=== PATIENT | female | born 1975 | race Caucasian/White ===

== ENCOUNTER 2024-08-27 01:56 | Emergency (ER) | payer OTHER, SELFPAY ==
[2024-08-27 02:01] VITALS: BP 172/98; PULSE 78; TEMP 36.6; O2SAT 97; BMI 53.7
--- NOTE | 2024-08-27 02:20 | CT_ITS ---
[address] [address] Patient Name: KRISTINA HENNESSY MRN: [id number] date: 1975 Sex: F Assigned Patient Location: ER Current Patient Location: ER Accession/Order Number: [id number] Exam Date: 08/27/2024 02:42 Report Date: 08/27/2024 03:12 At the request of: TRINI BAKER Procedure: CT abdomen pelvis w con EXAM: CT abdomen pelvis w con HISTORY: right sided abdominal pain COMPARISON: None. TECHNIQUE: Axial CT images through the abdomen and pelvis were obtained after the intravenous administration of contrast. Coronal and sagittal reformats were obtained. Dose reduction techniques were achieved by using automated exposure control and/or adjustment of mA and/or kV according to patient size and/or use of iterative reconstruction technique. FINDINGS: There is mild bibasilar atelectasis. There is a small hiatal hernia. Abdomen: The liver and spleen enhance homogeneously without focal lesion. There is no intra or extrahepatic biliary duct dilatation. The gallbladder is surgically absent. The liver is enlarged measuring up to 18.2 cm at the right midclavicular line. There is an indeterminate right adrenal nodule measuring up to 2.2 x 1.5 cm (series 3, image 44). The pancreas and kidneys are unremarkable. There is no mesenteric or retroperitoneal lymphadenopathy. There is colonic diverticulosis without evidence of diverticulitis. The appendix is dilated measuring up to 1.1 cm. An appendicolith is noted. There are surrounding inflammatory changes. Pelvis: The bladder and rectum are unremarkable. There is no iliac or inguinal lymphadenopathy. The uterus is present. The ovaries appear within normal limits by CT. Bone windows show no aggressive osseous lesions. CT/CT abdomen pelvis w con IMPRESSION: 1. Acute appendicitis. 2. Status post cholecystectomy. 3. Hepatomegaly. 4. Indeterminate right adrenal nodule. This could be further evaluated with a nonemergent outpatient contrast-enhanced MRI examination as clinically indicated. 5. Colonic diverticulosis without evidence of diverticulitis. #[address] Baker by Dr. Shannon at 3:11 AM ET on 08/27/2024. Electronically authenticated by: Kurt SHANNON Date: 08/27/2024 03:12
[2024-08-27 02:26] LABS: Basophils Percent Auto 0.2 % (0.2-2.0); Hematocrit 38.3 % (36.0-48.0); Immature Granulocytes Abs Auto 0.04 10^3/uL (0.00-0.03); Immature Granulocytes Pct Auto 0.3 % (0.0-0.5); Lymphocytes Percent Auto 8.3 % (20.5-60.0); Mean Corpuscular HGB Conc 33.9 g/dL (29.9-35.2); Mean Corpuscular Hemoglobin 29.5 pg (26.7-34.0); Mean Platelet Volume 8.8 fL (9.5-13.5); Monocytes Absolute Auto 0.4 10^3/uL (0.3-0.8); Monocytes Percent Auto 2.8 % (1.7-12.0); Neutrophils Percent Auto 88.4 % (43.0-75.0); Platelet Count 202 10^3/uL (150-450); Red Cell Distribution Width 13.2 % (11.0-15.0); White Blood Count 12.5 10^3/uL (4.0-11.0)
[2024-08-27 02:50] LABS: Alanine Aminotransferase 17 U/L (14-59); Albumin Globulin Ratio 0.9; Albumin Level 3.2 g/dL (3.4-5.0); Alkaline Phosphatase 90 U/L (46-116); Anion Gap 12.2; Aspartate Amino Transferase 8 U/L (15-37); BUN Creatinine Ratio 12.6; Bilirubin Total 1.5 mg/dL (0.2-1.0); Calcium 9.6 mg/dL (8.5-10.1); Carbon Dioxide 28.6 mmol/L (21.0-32.0); Chloride 100 mmol/L (98-107); Estimated GFR (African America >60 (>=60 mL/min/1.73m^2); Estimated GFR (Non-African Ame >60 (>=60 mL/min/1.73m^2); Globulin 3.5 g/dL; Glucose 175 mg/dL (74-106); Potassium 3.8 mmol/L (3.5-5.1); Sodium 137 mmol/L (136-145); Total Protein 6.7 g/dL (6.4-8.2); Troponin I High Sensitivity 6.5 pg/mL (4.0-51.3)
[2024-08-27 02:53] LABS: Lactate/Lactic Acid 2.2 mmol/L (0.4-2.0)
[2024-08-27] MEDS: MORPHINE SULFATE 2 MG/ML SYRINGE 4 MG IV (03:01)
[2024-08-27] MEDS: ONDANSETRON PF 4 MG/2 ML VIAL IV ×2 (03:01→05:06)
[2024-08-27 03:30] LABS: HCG Qualitative NEGATIVE (NEGATIVE); Internal Control Within Normal Limits
--- NOTE | 2024-08-27 03:39 | ED.ABDPAIN1 ---
HPI - Abdominal Pain General Chief Complaint: Abdominal Pain Stated Complaint: FLANK PAIN, RIGHT Time Seen by Provider: 08/27/24 02:16 Source: patient Mode of arrival: walk-in Limitations: no limitations History of Present Illness HPI narrative: 49-year-old female to the emergency department with chief complaint of right lower quadrant pain. She reports pain onset earlier in the day. Steadily progressively worsening. She has nausea and vomiting. No fever, sweats, chills. Past medical history: Hypertension, hypothyroidism Past surgical history: Cholecystectomy Related Data Home Medications ?Medication ?Instructions ?Recorded ?Confirmed citalopram 10 mg tablet 10 mg PO DAILY 08/27/24 08/27/24 hydrochlorothiazide 12.5 mg tablet 12.5 mg PO Q12H 08/27/24 08/27/24 labetalol 300 mg tablet 150 mg PO Q12H 08/27/24 08/27/24 levothyroxine 50 mcg tablet 50 mcg PO DAILY 08/27/24 08/27/24 (Synthroid) losartan 50 mg tablet 50 mg PO BID 08/27/24 08/27/24 Allergies Allergy/AdvReac Type Severity Reaction Status Date / Time No Known Drug Allergies Allergy Verified 08/27/24 02:05 Review of Systems ROS Status of ROS 10 or more systems reviewed and unremarkable except as noted in history and below [facility] Medical History (Updated 08/27/24 @ 03:47 by Quinton Baker MD) Thyroid disease ?E07.9 - Disorder of thyroid, unspecified (ICD-10) Hypertension ?I10 - Essential (primary) hypertension (ICD-10) Social History Little interest or pleasure in doing things: not at all Feeling down, depressed, or hopeless: not at all Exam Narrative Exam Narrative: VITALS: I have reviewed the triage vital signs. GENERAL: Morbidly obese female in no distress NEURO: Alert and oriented. Moves all extremities. Face is symmetric and expressive. EYES: PERRL. No scleral icterus or conjunctival injection. No discharge. HENT: Normocephalic, atraumatic. Hearing is grossly intact. Nares grossly patent and without discharge. Mucous membranes moist. NECK: No JVD. Patient moves neck without restriction. CARDIO: Rhythm regular. Normal rate. No murmur, rub, or gallop. Pulses equal bilaterally in the upper and lower extremity. No lower extremity edema. PULM: Lungs clear to auscultation in all nieves. No wheezes, rales, or rhonchi. No conversational dyspnea. No splinting, stridor, or accessory muscle use. GI/: Abdomen is soft. Right lower quadrant tenderness. Normoactive bowel sounds. EXTREMITIES: Symmetric muscle bulk. No joint swelling. No clubbing, cyanosis, or deformity. SKIN: Warm and dry. Normal turgor. No rash or lesions appreciated. PSYCH: Mood, affect, and interaction is appropriate to the setting. Constitutional Vital Signs, click to edit/add: Last Vital Signs Temp 97.9 F 08/27/24 02:01 Pulse 78 08/27/24 02:01 Resp 16 08/27/24 02:01 BP 172/98 H 08/27/24 02:01 Pulse Ox 97 08/27/24 02:01 O2 Del Method Room Air 08/27/24 02:01 Course Vital Signs Vital signs: Vital Signs Temperature 97.9 F 08/27/24 02:01 Pulse Rate 78 08/27/24 02:01 Respiratory Rate 16 08/27/24 02:01 Blood Pressure 172/98 H 08/27/24 02:01 Pulse Oximetry 97 08/27/24 02:01 Oxygen Delivery Method Room Air 08/27/24 02:01 Temperature 97.9 F 08/27/24 02:01 Pulse Rate 78 08/27/24 02:01 Respiratory Rate 16 08/27/24 02:01 Blood Pressure 172/98 H 08/27/24 02:01 Pulse Oximetry 97 08/27/24 02:01 Oxygen Delivery Method Room Air 08/27/24 02:01 MDM - Abdominal Pain MDM Narrative Medical decision making narrative: Female to the emergency department with chief complaint of right lower quadrant pain. Vital stable, the patient is afebrile. She does have significant tenderness on exam of the right lower CT scan is ordered. Basic labs. Morphine and Zofran for discomfort. Lab work reviewed and noted. Mild leukocytosis. Mild lactic acidosis likely setting of pain response. CT scan is consistent with acute appendicitis. No complication. Rocephin and Flagyl. Case discussed with Dr. Harvey at [facility] which is the patient's preferred transfer destination. He accepts the patient to his service. Medical Records Attestation: I reviewed the patient's medical records. Lab Data Attestation: I reviewed the patient's lab results. Labs: Lab Results 08/27/24 Range/Units 02:18 WBC 12.5 H (4.0-11.0) 10^3/uL RBC 4.40 (4.20-5.40) 10^6/uL Hgb 13.0 (12.0-16.0) g/dL Hct 38.3 (36.0-48.0) % MCV 87.0 (81.0-99.0) fL MCH 29.5 (26.7-34.0) pg MCHC 33.9 (29.9-35.2) g/dL RDW 13.2 (11.0-15.0) % Plt Count 202 (150-450) 10^3/uL MPV 8.8 L (9.5-13.5) fL Neut % (Auto) 88.4 H (43.0-75.0) % Lymph % (Auto) 8.3 L (20.5-60.0) % [place] % (Auto) 2.8 (1.7-12.0) % Eos % (Auto) 0.0 L (0.9-7.0) % Baso % (Auto) 0.2 (0.2-2.0) % Neut # (Auto) 11.0 H (1.4-6.5) 10^3/uL Lymph # (Auto) 1.0 L (1.2-3.8) 10^3/uL [place] # (Auto) 0.4 (0.3-0.8) 10^3/uL Eos # (Auto) 0.0 (0.0-0.7) 10^3/uL Baso # (Auto) 0.0 (0.0-0.1) 10^3/uL Abs Immat Gran (auto) 0.04 H (0.00-0.03) 10^3/uL Imm/Tot Granulo (auto) 0.3 (0.0-0.5) % Sodium 137 (136-145) mmol/L Potassium 3.8 (3.5-5.1) mmol/L Chloride 100 (98-107) mmol/L Carbon Dioxide 28.6 (21.0-32.0) mmol/L Anion Gap 12.2 BUN 12.0 (7.0-18.0) mg/dL Creatinine 0.95 (0.55-1.02) mg/dL Est GFR ( Amer) >60 (>=60 mL/min/1.73m^2) Est GFR (Non-Af Amer) >60 (>=60 mL/min/1.73m^2) BUN/Creatinine Ratio 12.6 Glucose 175 H (74-106) mg/dL Lactate 2.2 H* (0.4-2.0) mmol/L Calcium 9.6 (8.5-10.1) mg/dL Total Bilirubin 1.5 H (0.2-1.0) mg/dL AST 8 L (15-37) U/L ALT 17 (14-59) U/L Alkaline Phosphatase 90 (46-116) U/L Troponin I High Sens 6.5 (4.0-51.3) pg/mL Total Protein 6.7 (6.4-8.2) g/dL Albumin 3.2 L (3.4-5.0) g/dL Globulin 3.5 g/dL Albumin/Globulin Ratio 0.9 Lipase 31.0 (16.0-77.0) U/L Serum HCG, Qual Negative (NEGATIVE) Imaging Data CT scan - abdomen: Radiologist's impression: ITS Impressions Abdomen/Pelvis CT 08/27/24 02:20 IMPRESSION: 1. Acute appendicitis. 2. Status post cholecystectomy. 3. Hepatomegaly. 4. Indeterminate right adrenal nodule. This could be further evaluated with a nonemergent outpatient contrast-enhanced MRI examination as clinically indicated. 5. Colonic diverticulosis without evidence of diverticulitis. #[address] Baker by Dr. Shannon at 3:11 AM ET on 08/27/2024. Electronically authenticated by: Kurt SHANNON Date: 08/27/2024 03:12 Discharge Plan Discharge Chief Complaint: Abdominal Pain Clinical Impression: Acute appendicitis Patient Disposition: [facility] Time of Disposition Decision: 03:46 Discharge Location: [facility] Mode of Transportation: EMS Prescriptions / Home Meds: No Action citalopram 10 mg tablet 10 mg PO DAILY hydrochlorothiazide 12.5 mg tablet 12.5 mg PO Q12H labetalol 300 mg tablet 150 mg PO Q12H levothyroxine [Synthroid] 50 mcg tablet 50 mcg PO DAILY losartan 50 mg tablet 50 mg PO BID Print Language: Guamanian Referrals: HALEY VALDIVIA [Primary Care Provider] - 1 week
[2024-08-27 03:40] VITALS: BP 162/88; PULSE 71; TEMP 36.9; O2SAT 99
[2024-08-27] MEDS: CEFTRIAXONE 1,000 MG in 0.9 % SODIUM CHLORIDE 50 ML 100 MG IV (04:05)
[2024-08-27] MEDS: METRONIDAZOLE/SODIUM CHLORIDE 500 MG/100 ML PREMIX 100 MG IV (04:38)
[2024-08-27 05:08] LABS: Bilirubin Urine NEGATIVE (NEGATIVE); Blood Urine TRACE-I (NEGATIVE); Clarity Urine CLEAR (CLEAR); Color Urine YELLOW (YELLOW); Glucose Urine UA NEGATIVE (NEGATIVE); Ketones Urine NEGATIVE (NEGATIVE); Leukocyte Esterase Urine NEGATIVE (NEGATIVE); Nitrite Urine NEGATIVE (NEGATIVE); Protein Urine NEGATIVE (NEG/TRACE); Urobilinogen Urine 0.2 EU/dL (0.2-1.0)
[2024-08-27 05:12] VITALS: BP 146/80; PULSE 70; O2SAT 98
[2024-08-27 05:15] LABS: Bacteria Urine NONE SEEN #/HPF (NONE SEEN); Crystals Seen? None Seen #/HPF (None Seen); Mucus Urine NONE SEEN (NONE SEEN); RBC Urine 0-2 #/HPF (0-2); Squamous Epithelial Cell Urine FEW #/LPF (NONE/RARE); WBC Urine 0-2 #/HPF (NONE SEEN)
[2024-08-27 05:16] LABS: Cast Seen? NONE SEEN #/LPF (NONE SEEN)
--- NOTE | 2024-08-27 05:20 | PC.NURSE ---
Report called to [place] [phone]. To room 4037
== END 2024-08-27 06:10 | disposition short-term general hospital (02) ==
PROVIDERS: Emergency Provider Student in an Organized Health Care Education/Training Program; PCP Family Medicine
DX: K35.80 Unspecified acute appendicitis (principal); I10 Essential (primary) hypertension; E03.9 Hypothyroidism, unspecified; Z90.49 Acquired absence of other specified parts of digestive tract; E66.01 Morbid (severe) obesity due to excess calories; Z68.43 Body mass index [BMI] 50.0-59.9, adult; K57.30 Diverticulosis of large intestine without perforation or abscess without bleeding; R16.0 Hepatomegaly, not elsewhere classified
CPT/HCPCS: 36415; 74177; 80053; 81001; 83605; 83690; 84484; 84703; 85025; 96365; 96367; 96375; 96376; 99285; J0696; J1836; J2270; J2405; Q9967

== ENCOUNTER 2025-04-22 17:52 | Emergency (ER) | payer OTHER, SELFPAY ==
--- OUTSIDE RECORDS SUMMARY | 2025-04-22 18:01 | XMS_ITS | Clinical Summary ---
Author Organization [facility] Address [address] [place] [address] Care Team Providers Care Disease Case Manager Name Role Phone Javy Antoine MD Primary Care Provider [phone] Allergies No known active allergies Medications losartan (Cozaar) 50 MG tablet Twice daily 4 Active labetalol (Normodyne) 300 MG tablet .COMPLEX 4 Active levothyroxine (Synthroid, Levoxyl) 50 MCG tablet Daily before breakfast 4 Active hydroCHLOROthia zide (HYDRODiuril) 12.5 MG tablet Twice daily 4 Active citalopram (CeleXA) 10 MG tablet Daily 4 Active Active Problems Problem Noted Date Diagnosed Date Acute appendicitis with loca lized peritonitis, without perforation, abscess, or gangrene 09/10/2024 Family History Relation Name Status Comments Brother Alive Father Alive Mother Sister Alive Social History Tobacco Use Types Packs/Day Years Used Date Smoking Tobacco: Never Smokeless Tobacco: Never Tobacco Cessation:Counseling Given: Not Answered Alcohol Use Standard Drinks/Week Comments Yes 0 (1 standard drink = 0.6 oz pur e alcohol) Comments Unknown Sex and Gender Information Value Date Recorded Sex Assigned at Not on file Legal Sex Female 7:23 PM EDT Gender Identity Not on file Sexual Orientation Not on file Last Filed Vital Signs Vital Sign Reading Time Taken Comments Blood Pressure 118/74 09/10/2024 9:13 AM EST Pulse - - Temperature - - Respiratory Rate - - Oxygen Saturation - - Inhaled Oxygen Concentration - - Weight 140 kg (309 lb) 09/10/2024 9:13 AM EST Height 162.6 cm (5' 4 ) 09/10/2024 9:13 AM EST Body Mass Index 53.04 09/10/2024 9:13 AM EST Plan of Treatment Health Maintenance Due Date Last Done Comments CT Colonography 1974 Colonoscopy 1975 Colorectal Cancer Screening 1974 FIT-DNA 1974 FIT 1974 FOBT 1975 Sigmoidoscopy 1974 Pap Smear 1995 Cervical Cancer Screening 2004 HPV/Cotest 2004 Mammogram 2014 Influenza Vaccine (#1) 2025 Insurance [employer] Care Teams Disease Case Manager Relationship Specialty Start Date End Date Javy Antoine MD [address] [place] [id number] PCP - General Family Medicine 09/01/24
--- OUTSIDE RECORDS SUMMARY | 2025-04-22 18:04 | XMS_ITS | CCD ---
Author Organization [facility] Care Team Providers Care Founder / Ceo Name Role Phone SKIP, DR DE LEON Primary Care Unavailable NICOLAS, DR INFANTE Admitting Unavailable NICOLAS, DR INFANTE Attending Unavailable WEST, DR HALEY Morgan Consulting Unavailable NICOLAS, DR INFANTE Consulting Unavailable GIRVIN, DR DE LEON Primary Care Unavailable NICOLAS, DR INFANTE Admitting Unavailable NICOLAS, DR INFANTE Attending Unavailable NICOLAS, DR INFANTE Consulting Unavailable GIRVIN, DR DE LEON Primary Care Unavailable GIRVIN, DR DE LEON Admitting Unavailable GIRVIN, DR DE LEON Attending Unavailable NADERER, DR ZIYAD Meredith Admitting Unavailable REINECK, DR SAMIM Dougherty Consulting Unavailabl e GIRVIN, DR DE LEON Primary Care Unavailable NADERER, DR ZYIAD Meredith Attending Unavailable NADERER, DR ZIYAD Meredith Consulting Unavailable [place]hambra, Salomón Consulting Unavailable GIRVIN, DR DE LEON Primary Care Unavailable GIRVIN, DR DE LEON Admitting Unavailable GIRVIN, DR DE LEON Attending Unavailable GIRVIN, DR DE LEON Consulting Unavailable Policaro, Ira Consulting Unavailable GIRVIN, DR DE LEON Primary Care Unavailable GIRVIN, DR DE LEON Admitting Unavailable GIRVIN, DR DE LEON Attending Unavailable GIRVIN, DR DE LEON Consulting Unavailable GIRVIN, DR DE LEON Primary Care Unavailable WEST, DR HALEY Morgan Consulting Unavailable CHERELLE MCDONALD Admitting Unavailable TAMARA, CHERELLE Attending Unavailable CHERELLE MCDONALD Consulting Unavailable Haley Valdivia Unavailable Deanna Mckee Unavailable Meme Fernandez Unavailable RUSS MCNAMARA Attending Unavailable RUSS MCNAMARA Referring Unavailable HALEY VALDIVIA Primary Care Unavailable RUSS MCNAMARA Referring Unavailable HALEY VALDIVIA Primary Care Unavailable RUSS MCNAMARA Attending Unavailable RUSS MCNAMARA Attending Unavailable HALEY VALDIVIA Primary Care Unavailable RUSS MCNAMARA Attending Unavailable HALEY VALDIVIA Referring Unavailable HALEY VALDIVIA Primary Care Unavailable Haley Valdivia DO Primary Care Provider [phone] Justin Horton MD Admit Provider Marin Barron MD Attending Provider Radha Padilla MD Other Provider Haley Valdivia MD Primary Care Provider RADHA HECK Attending Unavailable Marin Barron Attending Unavailab Justin Sosa Admitting Unavailable Haley Valdivia Primary Care Unavailable Radha Padilla Consulting Unavailable Haley Valdivia DO Primary Care Provider Justin Horton MD Admit Provider Marin Barron MD Attending Provider [phone] Radha Padilla MD Other Provider Medications Current Medications Medication Drug Class(es) Dates Sig (Normalized) Sig (Original) Berberine (3 sources) Start: 01-28-2024 berberine Acti ve PO January 27, 2024 11:00pm Start: 01-28-2024 berberine Acti ve PO January 28, 2024 12:00am Biotin (17 sources) Start: 01-28-2024 Biotin Active PO January 27, 2024 11:00pm Start: 01-28-2024 Biotin Active PO January 28, 2024 12:00am Biotin Not-Takin g Biotin Active 24 hr buPROPion hydrochloride 300 mg extended release oral tablet (13 sources) Aminoketone Start: 05-02-2021 take 1 tablet by mouth once daily in the morning Wellbutrin XL 150 MG 1 tablet Orally qd am Apr, Active Start: 05-02-2021 take 1 tablet by luis th once daily in the morning Wellbutrin XL 300 MG 1 tablet Orally qd am for 30 day(s) Apr, Active Wellbutrin Activ e cholecalciferol 0.05 mg oral tablet (17 sources) Vitamin D Start: 01-28-2024 End: 01-28-2024 take 1 tablet by mouth once daily Cholecalciferol (Vitamin D3) 50 mcg (2,000 unit) tablet Active 50 MCG PO Daily January 28, 2024 10:13am Start: 01-28-2024 End: 01-28-2024 take 1 tablet by mouth once daily Cholecalciferol (Vitamin D3) 50 mcg (2,000 unit) tablet Discontinued 1 TAB PO Daily January 28, 2024 12:00am January 28, 2024 10:14am FreeTextSi tablet Orally Once a day; Note: Source Status: Taking; Provider: Skip Mills Start: 06-11-2022 take 1 tablet by luis th every twenty-four hours Vitamin D 50 MCG (2000 UT) 1 tablet Orally Once a day Jun, Active Citalopram (20 sources) Serotonin Reuptake Inhibitor Start: 10-26-2024 Citalopram 10 mg tab let Active 0 .ROUTE .COMPLEX October 26, 2024 8:10am TAKE 1 TABLET DAILY IN THE EVENING Start: 01-28-2024 End: 03-03-2024 take 2 tablets by mouth once daily Citalopram 10 mg tablet Discontinued 20 MG PO Daily January 28, 2024 10:02am March 03, 2024 11:29am Start: 01-28-2024 take 20 mg by mouth once daily Citalopram Active 20 MG PO Daily January 28, 2024 10:02am Start: 11-03-2023 End: 01-28-2024 Citalopram 10 mg tablet Disc ontinued 0 .ROUTE .COMPLEX November 03, 2023 9:50am January 28, 2024 10:06am TAKE 1 TABLET DAILY IN THE EVENING Start: 11-03-2023 End: 01-28-2024 Citalopram 10 mg tablet Disc ontinued 0 .ROUTE .COMPLEX November 03, 2023 8:50am January 28, 2024 9:06am TAKE 1 TABLET DAILY IN THE EVENING Start: 11-03-2023 End: 01-28-2024 Citalopram Discontinued 0 .R OUTE .COMPLEX November 03, 2023 9:50am January 28, 2024 10:06am TAKE 1 TABLET DAILY IN THE EVENING Start: 11-03-2023 End: 10-26-2024 take 1 tablet by mouth once daily Citalopram 10 mg tablet Discontinued 10 MG PO Daily July 05, 2024 10:38am October 26, 2024 8:10am Citalopram [place] bromide 10 mg TAKE 1 TABLET DAILY IN THE EVENING Active take 1 tablet by luis th every twenty-four hours Citalopram Hydrobromide 20 MG 1 tablet by mouth Once a day Active take 1 tablet by luis th once daily in the evening Citalopram Hydrobromide 40 mg 1 tablet by mouth qd pm Active clonazePAM 0.5 mg oral tablet (14 sources) Benzodiazepine Start: 07-05-2024 Clonazepam (Kl onopin) 0.5 mg tablet Active 0.5 MG PO Daily as needed for anxiety 14 7 July 05, 2024 1:00am Take 1 (0.5 mg) tab once a day or twice a day as needed take 1 tablet by luis th every twelve hours as needed for anxiety KlonoPIN 0.5 MG 1 tablet by mouth q12 hr s prn anxiety for 15 days Active Co Enzyme Q-10 (3 sources) Co Enzyme Q-10 A ctive Co q 10 (3 sources) Start: 01-28-2024 Co q 10 Active PO January 27, 2024 11:00pm Start: 01-28-2024 Co q 10 Active PO January 28, 2024 12:00am 60 actuat exenatide 0.005 mg/actuat pen injector (3 sources) GLP-1 Receptor Agonist Start: 06-27-2023 [place] 5 MCG Pen 5 MCG/0.02ML 5 MCG twice Subcutaneous daily AC (before morning meal ) and evening meal for 30 days E66.01 (1 box/ quantity sufficient for 30 days) Jun, Active fluticasone propionate 0.5 mg/ml topical cream (20 sources) Corticosteroid Start: 01-28-2024 End: 01-28-2024 Fluticasone Propionate 0.05 % cream Active APPLIC TOPICAL January 28, 2024 10:15am 1 application Externally qd as directed max 14 days Start: 01-28-2024 End: 01-28-2024 Fluticasone Propionate Activ e APPLIC TOPICAL January 28, 2024 10:15am 1 application Externally qd as directed max 14 days Start: 01-28-2024 End: 07-05-2024 take 2 spray(s) nasal route once daily Fluticasone Propionate 50 mcg/actuation spray,suspension Discontinued 2 SPRAY INTRANASAL Daily January 28, 2024 12:00am July 05, 2024 10:39am FreeTextSi sprays Nasally Once a day; Note: Source Status: Takingprn; Refills: 0; Provider: Rebecca Meredith Start: 03-27-2023 Fluticasone Pr opionate 0.05 % 1 application Externally qd as directed max 14 days for 14 days Mar, Active Start: 03-27-2023 Fluticasone Pr opionate 0.05 % 1 application Externally qd as directed max 14 days for 14 days Mar, Active Start: 10-15-2022 take 2 spray(s) nasa l route once daily as needed Fluticasone Propionate 50 MCG/ACT 2 sprays Nasally Once a day for 14 day(s) prn Oct, Active Start: 10-15-2022 take 2 spray(s) nasa l route once daily as needed Fluticasone Propionate 50 MCG/ACT 2 sprays Nasally Once a day for 14 day(s) prn Oct, Active Ginkoba (3 sources) Ginkoba Active labetalol hydrochloride 300 mg oral tablet (20 sources) beta-Adrenergic Deniz Start: 07-05-2024 labetalol (Normodyne) 300 MG tablet .COMPLEX 07/05/2024 Active Start: 07-05-2024 take 0.5 tablet by m outh twice daily Labetalol 300 mg tablet Active 300 MG PO .COMPLEX July 05, 2024 1:05pm 300 mg orally TAKE ONE-HALF (1/2) TABLET TWICE A DAY; Start: 04-09-2024 End: 07-05-2024 Labetalol 300 mg tablet Disc ontinued 0 .ROUTE .COMPLEX April 09, 2024 1:20pm July 05, 2024 1:05pm TAKE ONE-HALF (1/2) TABLET TWICE A DAY Start: 04-09-2024 End: 07-05-2024 Labetalol 300 mg tablet Disc ontinued 0 .ROUTE .COMPLEX April 09, 2024 12:20pm July 05, 2024 12:05pm TAKE ONE-HALF (1/2) TABLET TWICE A DAY Start: 01-12-2024 End: 04-09-2024 take 0.5 tablet by mouth twice daily, then take 1 tablet by mouth twice daily Labetalol 300 mg tablet Discontinued 0 PO Twice daily January 12, 2024 8:46am April 09, 2024 1:20pm take 1/2 of a 300 MG tablet orally twice daily Labetalol HCl 30 0 mg TAKE ONE-HALF (1/2) TABLET TWICE A DAY Active levothyroxine sodium 0.05 mg oral tablet (20 sources) l-Thyroxine Start: 09-20-2024 Levothyroxine 50 mcg tablet Active 0 .ROUTE .COMPLEX 90 September 20, 2024 9:46am TAKE 1 TABLET DAILY IN THE MORNING ON AN EMPTY STOMACH Start: 01-28-2024 End: 09-20-2024 take 1 tablet by mouth once daily before breakfast Levothyroxine 50 mcg tablet Discontinued 50 MCG PO Daily before breakfast January 28, 2024 10:13am September 20, 2024 9:46am Levothyroxine So dium 50 MCG TAKE 1 TABLET DAILY IN THE MORNING ON AN EMPTY STOMACH for 90 days Active Levothyroxine So dium 50 MCG TAKE 1 TABLET DAILY IN THE MORNING ON AN EMPTY STOMACH for 90 days Active Synthroid Active Losartan (20 sources) Angiotensin 2 Receptor Deniz Start: 10-26-2024 Losartan 50 mg table t Active 0 .ROUTE .COMPLEX 180 October 26, 2024 8:10am TAKE 1 TABLET TWICE A DAY Start: 01-28-2024 End: 10-26-2024 take 1 tablet by mouth twice daily Losartan 50 mg tablet Discontinued 50 MG PO Twice daily January 28, 2024 10:14am October 26, 2024 8:10am Start: 11-03-2023 End: 01-28-2024 Losartan 50 mg tablet Discon tinued 0 .ROUTE .COMPLEX 180 November 03, 2023 9:50am January 28, 2024 10:14am TAKE 1 TABLET TWICE A DAY Start: 11-03-2023 End: 01-28-2024 Losartan 50 mg tablet Discon tinued 0 .ROUTE .COMPLEX 180 November 03, 2023 8:50am January 28, 2024 9:14am TAKE 1 TABLET TWICE A DAY Start: 11-03-2023 End: 01-28-2024 Losartan Discontinued 0 .ROU TE .COMPLEX 180 November 03, 2023 9:50am January 28, 2024 10:14am TAKE 1 TABLET TWICE A DAY Start: 11-03-2023 End: 11-03-2023 take 1 tablet by mouth twice daily Losartan 50 mg tablet Discontinued 1 TAB PO Twice daily November 03, 2023 12:00am November 03, 2023 9:50am FreeTextSig: take 1 tablet by mouth twice a day; Note: Source Status: Taking; Provider: Skip Mills take 1 tablet by twice daily Losartan Potassium 50 MG take 1 tablet by mouth twice a day Active Magnesium (17 sources) Start: 01-28-2024 Magnesium Acti ve PO January 27, 2024 11:00pm Start: 01-28-2024 Magnesium Acti ve PO January 28, 2024 12:00am Magnesium Not-Ta jany Magnesium Active Probiata (12 sources) Probiata Active Completed/Discontinued Medications Medication Drug Class(es) Dates Sig (Normalized) Sig (Original) Berberine Complex (11 sources) Berberine Comple x Not-Taking Berberine Comple x Active cephalexin 500 mg oral capsule (2 sources) Cephalosporin Antibacterial Start: 08-29-2024 End: 11-05-2024 take 1 capsule by mouth four times daily Cephalexin 500 mg capsule Discontinued 500 MG PO Four times daily 16 4 August 29, 2024 1:00am November 05, 2024 10:54am Ginkgo Biloba (3 sources) Start: 01-28-2024 End: 07-05-2024 take 1 tablet by mouth once daily Ginkgo Biloba 40 mg tablet Discontinued 40 MG PO Daily January 28, 2024 12:00am July 05, 2024 10:39am give with meal/snack Start: 01-28-2024 End: 07-05-2024 take 1 tablet by mouth once daily Ginkgo Biloba 40 mg tablet Discontinued 40 MG PO Daily January 27, 2024 11:00pm July 05, 2024 9:39am give with meal/snack Start: 01-28-2024 take 40 mg by mouth once daily Ginkgo Biloba Active 40 MG PO Daily January 28, 2024 12:00am give with meal/snack hydroCHLOROthiazide 12.5 mg oral tablet (20 sources) Thiazide Diuretic Start: 01-28-2024 End: 03-03-2024 take 1 tablet by mouth twice daily Hydrochlorothiazide 12.5 mg tablet Discontinued 12.5 MG PO Twice daily January 28, 2024 10:13am March 03, 2024 11:30am take 1 tablet by mouth twice heber ly hydroCHLOROthiazide 12.5 MG take 1 tablet by mouth twice a day Active methylPREDNISolone (17 sources) Corticosteroid Start: 11-30-2015 Depo-Medrol 80 mg Nov, 80 mg ondansetron 4 mg disintegrating oral tablet (11 sources) Serotonin-3 Receptor Antagonist Start: 08-16-2020 Ondansetron 4 MG dissolve 1 tablet on tongue sublingual q8-12 hrs prn Aug, Not-Taking terbinafine 250 mg oral tablet (11 sources) Allylamine Antifungal Start: 06-15-2020 take 1 tablet by mouth once daily LamISIL 250 MG 1 tablet Orally Once a day for 15 days Jun, Not-Taking turmeric extract 500 mg oral capsule (11 sources) Turmeric 500 MG as directed Orally Not-Taking Turmeric 500 MG as directed Orally Active Vitamin D (Cholecalciferol) 50 MCG (2000 UT) (11 sources) Start: 05-02-2021 take 1 capsule by mouth once daily Vitamin D (Cholecalciferol) 50 MCG (2000 UT) 1 capsule Orally Once a day Apr, Not-Taking Start: 05-02-2021 take 1 capsule by mo uth once daily Vitamin D (Cholecalciferol) 50 MCG (2000 UT) 1 capsule Orally Once a day Apr, Active Problems Active Problems Problem Classification Problem Date Documented Da te Episodic/Chronic Abdominal pain (12 sources) Unspecified abdominal pain; Translations: [Pelvic and perineal pain] Onset: 12-25-2020 Episodic Anxiety disorders (20 sources) Anxiety; Translations: [Anxiety disorder, unspecified] Onset: 07-27-2021 Resolved: 12-27-2021 Chronic Appendicitis and other appendiceal conditions (10 sources) Acute appendicitis; Translations: [Unspecified acute appendicitis] Onset: 08-27-2024 08-27-2024 Episodic Deficiency and other anemia (6 sources) Anemia, unspecified; Translations: [Anemia, unspecified] Onset: 05-02-2021 Resolved: 05-02-2021 Episodic Deficiency and other anemia (3 sources) Anemia; Translations: [Anemia, unspecified] 01-28-2024 Episodic Diabetes mellitus without complication (8 sources) Hyperglycemia, unspecified; Translations: [Hyperglycemia] Onset: 05-02-2021 Resolved: 05-02-2021 Episodic Essential hypertension (20 sources) Essential (primary) hypertension; Translations: [Hypertensive disorder] Onset: 12-27-2020 Resolved: 02-12-2022 Chronic Menstrual disorders (4 sources) Excessive and frequent menstruation with irregular cycle; Translations: [Irregular menstruation, unspecified] Onset: 01-08-2024 Chronic Mood disorders (20 sources) Major depressive disorder, single episode, unspecified; Translations: [Depressive disorder] Onset: 12-27-2020 Resolved: 11-28-2021 Chronic Mood disorders (1 source) Mood disorders; Translations: [Depression, unspecified] Onset: 08-27-2024 Nutritional deficiencies (20 sources) Vitamin D deficiency; Translations: [Vitamin D deficiency, unspecified] Onset: 05-02-2021 Resolved: 05-02-2021 Chronic Other aftercare (4 sources) Other manager intermediate (current) drug therapy; Translations: [OTH GROUP HOME CURRENT DRUG THERAPY] Onset: 12-27-2020 Resolved: 05-02-2021 Episodic Other female genital disorders (2 sources) Other specified abnormal uterine and vaginal bleeding; Translations: [Other specified abnormal uterine and vaginal bleeding] Onset: 02-03-2024 Chronic Other female genital disorders (2 sources) Personal history of other diseases of the female genital tract; Translations: [Personal history of other diseases of the female genital tract] Onset: 01-08-2024 Episodic Other gastrointestinal disorders (20 sources) Irritable bowel syndrome; Translations: [Irritable bowel syndrome without diarrhea] Chronic Other nervous system disorders (20 sources) Sensory disorder of smell and/or taste; Translations: [Anosmia] Episodic Other nervous system disorders (20 sources) Loss of taste; Translations: [Parageusia] Episodic Other nutritional; endocrine; and metabolic disorders (4 sources) Morbid (severe) obesity due to excess calories; Translations: [MORBID SEVERE OBES D/T EXCESS CLARITZA] Onset: 12-27-2020 Chronic Other nutritional; endocrine; and metabolic disorders (5 sources) Body mass index (BMI) 50.0-59.9, adult; Translations: [Body Mass Index 50.0-59.9, adult] Onset: 08-28-2020 08-29-2024 Chronic Other nutritional; endocrine; and metabolic disorders (2 sources) Morbid obesity; Translations: [Morbid (severe) obesity due to excess calories] Chronic Other nutritional; endocrine; and metabolic disorders (2 sources) Body mass index 40+ - severely obese; Translations: [Body mass index (BMI) 50.0-59.9, adult] 08-27-2024 Chronic Other nutritional; endocrine; and metabolic disorders (2 sources) Hypomagnesemia; Translations: [Hypomagnesemia] 08-27-2024 Chronic Other nutritional; endocrine; and metabolic disorders (3 sources) Hypomagnesemia; Translations: [Disorders of magnesium metabolism] Onset: 08-27-2024 08-29-2024 Chronic Other nutritional; endocrine; and metabolic disorders (1 source) Abnormal weight gain Episodic Other screening for suspected conditions (not mental disorders or infectious disease) (4 sources) Encounter for screening mammogram for malignant neoplasm of breast; Translations: [Patient encounter status] Onset: 05-02-2021 Resolved: 05-02-2021 Episodic Other skin disorders (1 source) Rash and other nonspecific skin eruption Episodic Other upper respiratory infections (14 sources) Sore throat symptom; Translations: [Acute pharyngitis, unspecified] Onset: 03-07-2022 Resolved: 03-07-2022 Episodic Pneumonia (except that caused by tuberculosis or sexually transmitted disease) (1 source) Pneumonia (except that caused by tuberculosis or sexually transmitted disease); Translations: [PNEUMONIA D/T CORONAVIRUS DIS 2019] Onset: 10-13-2020 Residual codes; unclassified (1 source) Acquired absence of other specified parts of digestive tract; Translations: [ACQ ABSENCE OTH PART DIGESTV TRACT] Onset: 12-27-2020 Episodic Thyroid disorders (20 sources) Hypothyroidism, unspecified; Translations: [Hypothyroidism] Onset: 12-27-2020 Resolved: 05-02-2021 Chronic Unclassified (2 sources) Contact with and (suspected) exposure to; Translations: [Contact with and (suspected) exposure to] Onset: 08-22-2020 Unclassified (1 source) PCOS, right side ovarian pain Onset: 01-08-2024 Past or Other Problems Problem Classification Problem Date Documented Da te Episodic/Chronic Fever of unknown origin (1 source) Fever, unspecified; Translations: [FEVER UNSPECIFIED] Onset: 08-22-2020 Episodic Genitourinary symptoms and ill-defined conditions (1 source) Proteinuria, unspecified; Translations: [Proteinuria R80.9] Onset: 05-02-2021 Resolved: 05-02-2021 Episodic Other connective tissue disease (3 sources) Pain in right leg; Translations: [PAIN IN RIGHT LEG] Onset: 08-08-2020 Episodic Other connective tissue disease (3 sources) Pain in right lower leg; Translations: [PAIN IN RIGHT LOWER LEG] Onset: 07-25-2020 Episodic Other nervous system disorders (1 source) Parageusia; Translations: [PARAGEUSIA] Onset: 08-22-2020 Episodic Other nervous system disorders (1 source) Anosmia; Translations: [ANOSMIA] Onset: 08-22-2020 Episodic Other nutritional; endocrine; and metabolic disorders (2 sources) Abnormal weight loss; Translations: [Weight loss R63.4] Onset: 05-02-2021 Resolved: 11-02-2021 Episodic Phlebitis; thrombophlebitis and thromboembolism (1 source) Embolism and thrombosis of superficial veins of right lower extremity; Translations: [EMBOLISM AND THROMB SUP VEINS RLE] Onset: 08-10-2020 Episodic Pneumonia (except that caused by tuberculosis or sexually transmitted disease) (1 source) Unspecified bacterial pneumonia; Translations: [UNSPECIFIED BACTERIAL PNEUMONIA] Onset: 08-28-2020 Episodic Residual codes; unclassified (1 source) Pain, unspecified; Translations: [PAIN UNSPECIFIED] Onset: 08-22-2020 Episodic Respiratory failure; insufficiency; arrest (adult) (1 source) Acute respiratory failure with hypoxia; Translations: [ACUTE RESPIRATORY FAIL W/HYPOXIA] Onset: 08-28-2020 Episodic Skin and subcutaneous tissue infections (1 source) Cellulitis of right lower limb; Translations: [CELLULITIS OF RIGHT LOWER LIMB] Onset: 07-27-2020 Episodic Unclassified (1 source) Contact with and (suspected) exposure to; Translations: [Contact with and (suspected) exposure to] Onset: 08-16-2020 Unclassified (1 source) Cough R05.9 Viral infection (5 sources) COVID-19; Translations: [COVID-19] Onset: 10-07-2020 Resolved: 03-07-2022 Results Test Name Value Interpretation Reference Range Facility A1C with Estimated Average G ni 08-29-2024 Glucose [Mass/Vol] 123 mg/dL Normal [facility] Comment on above: Order Comment: Comme nt ok to use previously drawn blood Result Comment: PERF ORMED BY: [place] [address] PATHOLOGIST BANQUET PILOT VIKTORIYA ROBERSON M.D. Performed By: #### C MP, MG, CBC #### [facility] [address] [place] [address] HbA1c (Bld) [Mass fraction] 5.9 % High 4.3-5.6 [facility] Comment on above: Order Comment: Comme nt ok to use previously drawn blood Result Comment: Incr eased risk for diabetes: 5.7 - 6.4 diabetes: >6.4 glycemic control for adults with diabetes: <7.0 Performed By: #### C MP, MG, CBC #### [facility] [address] [place] [address] Alanine aminotransferase [En zymatic activity/volume] in Serum or PlasmaOrdered By: Justin Horton on 08-29-2024 ALT [Catalytic activity/Vol] Alanine aminotransferase [Enzymatic activity/volume] in Serum or Plasma High 7-52 [facility] Albumin [Mass/volume] in Ser um or Plasma by Bromocresol green (BCG) dye binding methoOrdered By: Justin Horton on 08-29-2024 Albumin BCG dye [Mass/Vol] Albumin [Mass/volume] in Serum or Plasma by Bromocresol green (BCG) dye binding metho Low 3.5-5.7 [facility] Alkaline phosphatase [Enzyma tic activity/volume] in Serum or PlasmaOrdered By: Justin Horton on 08-29-2024 ALP [Catalytic activity/Vol] Alkaline phosphatase [Enzymatic activity/volume] in Serum or Plasma 34-104 [facility] Aspartate aminotransferase [ Enzymatic activity/volume] in Serum or PlasmaOrdered By: Justin Horton on 08-29-2024 AST [Catalytic activity/Vol] Aspartate aminotransferase [Enzymatic activity/volume] in Serum or Plasma High 13-39 [facility] Basophils Auto (Bld) [#/Vol] Ordered By: Justin Horton on 08-29-2024 Basophils (Bld) [#/Vol] Automated basoph il count 0.0-0.2 [facility] Basophils/100 WBC Auto (Bld) Ordered By: Justin Horton on 08-29-2024 Basophils/100 WBC (Bld) Automated basophil % . [facility] Bilirubin.total [Mass/volume ] in Serum or PlasmaOrdered By: Justin Horton on 08-29-2024 Bilirubin [Mass/Vol] Bilirubin.total [Mass/volume] in Serum or Plasma High 0.3-1.0 [facility] Blood estimated average gluc ose determination by estimation from glycated hemoglobinOrdered By: Winnie Miller on 08-29-2024 Average glucose Estimated from glycated hemoglobin (Bld) [Mass/Vol] Glucose mean value [Mass/volume] in Blood Estimated from glycated hemoglobin [facility] Calcium [Mass/volume] in Ser um or PlasmaOrdered By: Justin Horton on 08-29-2024 Calcium [Mass/Vol] Calcium [Mass/volume ] in Serum or Plasma Low 8.6-10.3 [facility] Carbon dioxide, total [Moles /volume] in Serum or PlasmaOrdered By: Justin Horton on 08-29-2024 CO2 [Moles/Vol] Carbon dioxide, tota l [Moles/volume] in Serum or Plasma 21.0-31.0 [facility] Chloride [Moles/volume] in S shweta or PlasmaOrdered By: Justin Horton on 08-29-2024 Chloride [Moles/Vol] Chloride [Moles/volume] in Serum or Plasma 98-107 [facility] Complete Blood Count Auto Di ffon 08-29-2024 Basophils (Bld) [#/Vol] 0.0 10*3/uL Normal 0.0-0.2 [facility] Comment on above: Result Comment: PERF ORMED BY: [place] [address] PATHOLOGIST BANQUET PILOT VIKTORIYA ROBERSON M.D. Performed By: #### C MP, CBC #### [address] Basophils/100 WBC (Bld) 0.4 % Normal . [facility] Comment on above: Performed By: #### C MP, CBC #### [facility] [address] [place] [address] [place] Eosinophils (Bld) [#/Vol] 0.0 10*3/uL Normal 0.0-0.45 [facility] [facility] Comment on above: Performed By: #### C MP, CBC #### [facility] [address] [place] [address] [place] Eosinophils/100 WBC (Bld) 0.3 % Normal . [facility] Comment on above: Performed By: #### C MP, CBC #### [address] Erythrocyte distribution width (RBC) [Ratio] 14.9 % Normal 11.9-15.3 [facility] Comment on above: Performed By: #### C MP, CBC #### [address] Hematocrit (Bld) [Volume fraction] 31.5 % Low 34.0-46.4 [facility] Comment on above: Performed By: #### C MP, CBC #### [place] [address] [place] Hemoglobin (Bld) [Mass/Vol] 10.7 g/dL Low 11.8-15.4 [facility] Comment on above: Performed By: #### C MP, CBC #### [place] [address] [place] Lymphocytes (Bld) [#/Vol] 1.3 10*3/uL Normal 1.00-4.8 [facility] Comment on above: Performed By: #### C MP, CBC #### [place] [address] [place] Lymphocytes/100 WBC (Bld) 21.8 % Normal . [facility] Comment on above: Performed By: #### C MP, CBC #### [address] MCH (RBC) [Entitic mass] 29.9 pg Normal 24.7-34.3 [facility] Comment on above: Performed By: #### C MP, CBC #### [facility] [address] MCV (RBC) [Entitic vol] 87.8 fL Normal 80-100 [facility] Comment on above: Performed By: #### C MP, CBC #### [facility] [address] Mean Corpuscular HGB Conc 34.1 g/dL Normal 32.0-35.0 [facility] Comment on above: Performed By: #### C MP, CBC #### [place] [address] [place] Monocytes (Bld) [#/Vol] 0.3 10*3/uL Normal 0.0-0.8 [facility] Comment on above: Performed By: #### C MP, CBC #### [address] Monocytes/100 WBC (Bld) 5.0 % Normal . [facility] Comment on above: Performed By: #### C MP, CBC #### [place] [address] [place] Neutrophils (Bld) [#/Vol] 4.5 10*3/uL Normal 1.8-7.7 [facility] Comment on above: Performed By: #### C MP, CBC #### [place] [address] [place] Neutrophils/100 WBC (Bld) 72.5 % Normal . [facility] Comment on above: Performed By: #### C MP, CBC #### [address] NRBC% 0.0 /100{WBC} Normal 0-0.5 The [facility] Comment on above: Performed By: #### C MP, CBC #### [address] Platelet mean volume (Bld) [Entitic vol] 7.0 fL Normal 6.3-10.7 The [facility] Comment on above: Performed By: #### C MP, CBC #### [address] Platelets (Bld) [#/Vol] 162 10*3/uL Normal 150-450 [facility] Comment on above: Performed By: #### C MP, CBC #### [address] RBC (Bld) [#/Vol] 3.59 10*6/uL Low 3.60-5.00 The [facility] Comment on above: Performed By: #### C MP, CBC #### [address] WBC (Bld) [#/Vol] 6.2 10*3/uL Normal 3.8-11.6 The [facility] Comment on above: Performed By: #### C MP, CBC #### [address] Comprehensive Metabolic Pane booker 08-29-2024 Albumin [Mass/Vol] 3.2 g/dL Low 3.5-5.7 The [facility] Comment on above: Performed By: #### C MP, MG, CBC #### [address] Albumin/Globulin [Mass ratio] 1.3 {ratio} Normal [facility] Comment on above: Performed By: #### C MP, MG, CBC #### [address] ALP [Catalytic activity/Vol] 94 U/L Normal 34-104 [facility] Comment on above: Performed By: #### C MP, MG, CBC #### [address] ALT [Catalytic activity/Vol] 57 U/L High 7-52 [facility] Comment on above: Performed By: #### C MP, MG, CBC #### [address] Anion gap [Moles/Vol] 7.8 mmol/L Normal 6.0-15.0 [facility] Comment on above: Performed By: #### C MP, MG, CBC #### [facility] [address] AST [Catalytic activity/Vol] 102 U/L High 13-39 [facility] Comment on above: Performed By: #### C MP, MG, CBC #### [facility] [address] Bilirubin [Mass/Vol] 1.1 mg/dL High 0.3-1.0 [facility] Comment on above: Performed By: #### C MP, MG, CBC #### [facility] [address] Calcium [Mass/Vol] 7.8 mg/dL Low 8.6-10.3 The [facility] Comment on above: Performed By: #### C MP, MG, CBC #### [place] [address] [place] Chloride [Moles/Vol] 106 mmol/L Normal 98-107 [facility] Comment on above: Performed By: #### C MP, MG, CBC #### [place] [address] [place] CO2 [Moles/Vol] 28.8 mmol/L Normal 21.0-31.0 The [facility] Comment on above: Performed By: #### C MP, MG, CBC #### [place] [address] [place] Creatinine [Mass/Vol] 0.71 mg/dL Normal 0.60-1.20 [facility] Comment on above: Performed By: #### C MP, MG, CBC #### [facility] [address] [place] [address] [place] Creatinine Clr Calc Pharmacy 137.77 Normal [facility] Comment on above: Result Comment: PERF ORMED BY: [place] [address] PATHOLOGIST BANQUET PILOT VIKTORIYA ROBERSON M.D. Performed By: #### C MP, MG, CBC #### [place] [id number] [place] GFR/1.73 sq M.predicted MDRD (S/P/Bld) [Vol rate/Area] mL/min/{1.73_m2} Normal [facility] Comment on above: Performed By: #### C MP, MG, CBC #### [address] Globulin (S) [Mass/Vol] 2.5 g/dL Normal T he [facility] Comment on above: Performed By: #### C MP, MG, CBC #### [address] Glucose [Mass/Vol] 104 mg/dL High 70-100 The [facility] Comment on above: Result Comment: [facility] Glucose Reference Range is dependent on time and content of last meal. Glucose of more than 200 mg/dL in a nonstressed, ambulatory subject supports the diagnosis of Diabetes Mellitus. ADA recommended reference range Performed By: #### C MP, MG, CBC #### [address] Potassium [Moles/Vol] 3.6 mmol/L Normal 3.5-5.1 [facility] Comment on above: Performed By: #### C MP, MG, CBC #### [address] Protein [Mass/Vol] 5.7 g/dL Low 6.4-8.9 The [facility] Comment on above: Performed By: #### C MP, MG, CBC #### [address] Sodium [Moles/Vol] 139 mmol/L Normal 136-145 The [facility] Comment on above: Performed By: #### C MP, MG, CBC #### [address] Urea nitrogen [Mass/Vol] 13 mg/dL Normal 7-25 [facility] Comment on above: Performed By: #### C MP, MG, CBC #### [place] [address] [place] Creatinine [Mass/volume] in Serum or PlasmaOrdered By: Justin Horton on 08-29-2024 Creatinine [Mass/Vol] Creatinine [Mass/volume] in Serum or Plasma 0.60-1.20 [facility] Eosinophils Auto (Bld) [#/Vo l]Ordered By: Justin Horton on 08-29-2024 Eosinophils (Bld) [#/Vol] Automated eosinophil count 0.0-0.45 [facility] Eosinophils/100 WBC Auto (Bl d)Ordered By: Justin Horton on 08-29-2024 Eosinophils/100 WBC (Bld) Automated eosinophil % . [facility] Erythrocyte distribution wid th Auto (RBC) [Ratio]Ordered By: Justin Horton on 08-29-2024 Erythrocyte distribution width (RBC) [Ratio] Erythrocyte distribution width [Ratio] by Automated count 11.9-15.3 [facility] Globulin Calc (S) [Mass/Vol] Ordered By: Justin Horton on 08-29-2024 Globulin (S) [Mass/Vol] Serum globulin measurement by calculation (mass/volume) [facility] Glucose [Mass/volume] in Ser um or PlasmaOrdered By: Justin Horton on 08-29-2024 Glucose [Mass/Vol] Glucose [Mass/volume ] in Serum or Plasma High 70-100 [facility] Comment on above: ADA recommended refe rence rangeRandom Glucose Reference Range is dependent on time and content of last meal. Glucose of more than 200 mg/dL in a nonstressed, ambulatory subject supports the diagnosis of Diabetes Mellitus. Hematocrit Auto (Bld) [Volum e fraction]Ordered By: Justin Horton on 08-29-2024 Hematocrit (Bld) [Volume fraction] Hematocrit [Volume Fraction] of Blood by Automated count Low 34.0-46.4 [facility] Hemoglobin A1c/Hemoglobin.to sophia in BloodOrdered By: Winnie Miller on 08-29-2024 HbA1c (Bld) [Mass fraction] Hemoglobin A1c percentage High 4.3-5.6 [facility] Comment on above: Increased risk for d iabetes: 5.7 - 6.4diabetes: >6.4glycemic control for adults with diabetes: <7.0 Hemoglobin [Mass/volume] in BloodOrdered By: Justin Horton on 08-29-2024 Hemoglobin (Bld) [Mass/Vol] Hemoglobin [Mass/volume] in Blood Low 11.8-15.4 [facility] Leukocytes [#/volume] correc kae for nucleated erythrocytes in Blood by Automated counOrdered By: Justin Horton on 08-29-2024 WBC corrected for nucl RBC Auto (Bld) [#/Vol] Leukocytes [#/volume] corrected for nucleated erythrocytes in Blood by Automated coun 3.8-11.6 [facility] Lymphocytes Auto (Bld) [#/Vo l]Ordered By: Justin Horton on 08-29-2024 Lymphocytes (Bld) [#/Vol] Lymphocytes [#/volume] in Blood by Automated count 1.00-4.8 [facility] Lymphocytes/100 WBC Auto (Bl d)Ordered By: Justin Horton on 08-29-2024 Lymphocytes/100 WBC (Bld) Lymphocytes/100 leukocytes in Blood by Automated count . [facility] MCH Auto (RBC) [Entitic mass ]Ordered By: Justin Horton on 08-29-2024 MCH (RBC) [Entitic mass] MCH [Entitic mass] by Automated count 24.7-34.3 [facility] MCHC Auto (RBC) [Mass/Vol]Or dered By: Justin Horton on 08-29-2024 MCHC (RBC) [Mass/Vol] MCHC [Mass/volume] by Automated count 32.0-35.0 [facility] MCV Auto (RBC) [Entitic vol] Ordered By: Justin Horton on 08-29-2024 MCV (RBC) [Entitic vol] MCV [Entitic vol ume] by Automated count 80-100 [facility] Monocytes Auto (Bld) [#/Vol] Ordered By: Justin Horton on 08-29-2024 Monocytes (Bld) [#/Vol] Automated blood monocyte count 0.0-0.8 [facility] Monocytes/100 WBC Auto (Bld) Ordered By: Justin Horton on 08-29-2024 Monocytes/100 WBC (Bld) Automated monocyte % . [facility] Neutrophils Auto (Bld) [#/Vo l]Ordered By: Justin Horton on 08-29-2024 Neutrophils (Bld) [#/Vol] Neutrophils [#/volume] in Blood by Automated count 1.8-7.7 [facility] Neutrophils/100 WBC Auto (Bl d)Ordered By: Justin Horton on 08-29-2024 Neutrophils/100 WBC (Bld) Automated neutrophil % . [facility] No Panel InformationOrdered By: Justin Horton on 08-29-2024 Estimated GFR (CKD-EPI) > 60.0 mL/Min [facility] Creatinine Clearance (Chem 137.77 [facility] Nucleated erythrocytes [Pres ence] in Blood by Automated countOrdered By: Justin Horton on 08-29-2024 Nucleated RBC Auto Ql (Bld) Nucleated erythrocytes [Presence] in Blood by Automated count 0-0.5 [facility] Platelet mean volume Auto (B ld) [Entitic vol]Ordered By: Justin Horton on 08-29-2024 Platelet mean volume (Bld) [Entitic vol] Platelet mean volume [Entitic volume] in Blood by Automated count 6.3-10.7 [facility] Platelets Auto (Bld) [#/Vol] Ordered By: Justin Horton on 08-29-2024 Platelets (Bld) [#/Vol] Platelets [#/vol ume] in Blood by Automated count 150-450 [facility] Potassium [Moles/volume] in Serum or PlasmaOrdered By: Justin Horton on 08-29-2024 Potassium [Moles/Vol] Potassium [Moles/volume] in Serum or Plasma 3.5-5.1 [facility] Protein [Mass/volume] in Ser um or PlasmaOrdered By: Justin Horton on 08-29-2024 Protein [Mass/Vol] Protein [Mass/volume ] in Serum or Plasma Low 6.4-8.9 [facility] RBC Auto (Bld) [#/Vol]Ordere d By: Justin Horton on 08-29-2024 RBC (Bld) [#/Vol] Erythrocytes [#/volume] in Blood by Automated count Low 3.60-5.00 [facility] Serum or plasma albumin/glob ulin mass ratioOrdered By: Justin Horton on 08-29-2024 Albumin/Globulin [Mass ratio] Serum or plasma albumin/globulin mass ratio [facility] Serum or plasma anion gap de terminationOrdered By: Justin Horton on 08-29-2024 Anion gap [Moles/Vol] Serum or plasma an ion gap determination 6.0-15.0 [facility] Sodium [Moles/volume] in Ser um or PlasmaOrdered By: Justin Horton on 08-29-2024 Sodium [Moles/Vol] Sodium [Moles/volume ] in Serum or Plasma 136-145 [facility] Urea nitrogen [Mass/volume] in Serum or PlasmaOrdered By: Justin Horton on 08-29-2024 Urea nitrogen [Mass/Vol] Urea nitrogen [Mass/volume] in Serum or Plasma 7-25 [facility] WBC Auto (Bld) [#/Vol]Ordere d By: Justin Horton on 08-29-2024 WBC (Bld) [#/Vol] Leukocytes [#/volume ] in Blood by Automated count 3.8-11.6 [facility] Complete Blood Count Auto Di ffon 08-28-2024 Basophils (Bld) [#/Vol] 0.0 10*3/uL Normal 0.0-0.2 [facility] Comment on above: Result Comment: PERF ORMED BY: [place] [address] PATHOLOGIST BANQUET PILOT VIKTORIYA ROBERSON M.D. Performed By: #### C MP, MG, CBC #### [facility] [address] [place] [address] [place] Basophils/100 WBC (Bld) 0.1 % Normal . T deni [facility] Comment on above: Performed By: #### C MP, MG, CBC #### [facility] [address] [place] [address] [place] Eosinophils (Bld) [#/Vol] 0.0 10*3/uL Normal 0.0-0.45 [facility] Comment on above: Performed By: #### C MP, MG, CBC #### [facility] [address] [place] [address] [place] Eosinophils/100 WBC (Bld) 0.0 % Normal . [facility] Comment on above: Performed By: #### C MP, MG, CBC #### [address] Erythrocyte distribution width (RBC) [Ratio] 14.6 % Normal 11.9-15.3 [facility] Comment on above: Performed By: #### C MP, MG, CBC #### [address] Hematocrit (Bld) [Volume fraction] 32.7 % Low 34.0-46.4 [facility] Comment on above: Performed By: #### C MP, MG, CBC #### [address] Hemoglobin (Bld) [Mass/Vol] 11.3 g/dL Low 11.8-15.4 [facility] Comment on above: Performed By: #### C MP, MG, CBC #### [address] Lymphocytes (Bld) [#/Vol] 1.0 10*3/uL Normal 1.00-4.8 [facility] Comment on above: Performed By: #### C MP, MG, CBC #### [address] Lymphocytes/100 WBC (Bld) 7.6 % Normal . [facility] Comment on above: Performed By: #### C MP, MG, CBC #### [address] MCH (RBC) [Entitic mass] 30.1 pg Normal 24.7-34.3 [facility] Comment on above: Performed By: #### C MP, MG, CBC #### [address] MCV (RBC) [Entitic vol] 87.0 fL Normal 80-100 T he [facility] Comment on above: Performed By: #### C MP, MG, CBC #### [address] Mean Corpuscular HGB Conc 34.6 g/dL Normal 32.0-35.0 [facility] Comment on above: Performed By: #### C MP, MG, CBC #### [address] Monocytes (Bld) [#/Vol] 0.6 10*3/uL Normal 0.0-0.8 [facility] Comment on above: Performed By: #### C MP, MG, CBC #### [address] Monocytes/100 WBC (Bld) 4.9 % Normal . [facility] Comment on above: Performed By: #### C MP, MG, CBC #### [address] Neutrophils (Bld) [#/Vol] 11.1 10*3/uL High 1.8-7.7 [facility] Comment on above: Performed By: #### C MP, MG, CBC #### [address] Neutrophils/100 WBC (Bld) 87.4 % Normal . [facility] Comment on above: Performed By: #### C MP, MG, CBC #### [address] NRBC% 0.0 /100{WBC} Normal 0-0.5 [facility] Comment on above: Performed By: #### C MP, MG, CBC #### [address] Platelet mean volume (Bld) [Entitic vol] 7.1 fL Normal 6.3-10.7 [facility] Comment on above: Performed By: #### C MP, MG, CBC #### [address] Platelets (Bld) [#/Vol] 176 10*3/uL Normal 150-450 [facility] Comment on above: Performed By: #### C MP, MG, CBC #### [address] [place] [address] [place] RBC (Bld) [#/Vol] 3.76 10*6/uL Normal 3.60-5.00 [facility] Comment on above: Performed By: #### C MP, MG, CBC #### [address] WBC (Bld) [#/Vol] 12.7 10*3/uL High 3.8-11.6 [facility] Comment on above: Performed By: #### C MP, MG, CBC #### [address] Comprehensive Metabolic Pane booker 08-28-2024 Albumin [Mass/Vol] 3.5 g/dL Normal 3.5-5.7 [facility] Comment on above: Performed By: #### C MP, MG, CBC #### [address] Albumin/Globulin [Mass ratio] 1.3 {ratio} Normal [facility] Comment on above: Performed By: #### C MP, MG, CBC #### [address] ALP [Catalytic activity/Vol] 69 U/L Normal 34-104 [facility] Comment on above: Performed By: #### C MP, MG, CBC #### [address] ALT [Catalytic activity/Vol] 10 U/L Normal 7-52 [facility] Comment on above: Performed By: #### C MP, MG, CBC #### [address] Anion gap [Moles/Vol] 10.0 mmol/L Normal 6.0-15.0 e [facility] Comment on above: Performed By: #### C MP, MG, CBC #### [address] AST [Catalytic activity/Vol] 8 U/L Low 13-39 [facility] Comment on above: Performed By: #### C MP, MG, CBC #### [facility] [address] Bilirubin [Mass/Vol] 1.3 mg/dL High 0.3-1.0 [facility] Comment on above: Result Comment: Samp les from patients who have taken Naproxen have shown spurious elevation in Total Bilirubin levels. A metabolite of Naproxen, O-desmethylnaproxen, has been shown to interfere with the Jendrassik-Grof method for measuring Total Bilirubin. Performed By: #### C MP, MG, CBC #### [address] Calcium [Mass/Vol] 8.4 mg/dL Low 8.6-10.3 [facility] Comment on above: Performed By: #### C MP, MG, CBC #### [address] Chloride [Moles/Vol] 102 mmol/L Normal 98-107 [facility] Comment on above: Performed By: #### C MP, MG, CBC #### [address] CO2 [Moles/Vol] 29.0 mmol/L Normal 21.0-31.0 [facility] Comment on above: Performed By: #### C MP, MG, CBC #### [address] Creatinine [Mass/Vol] 0.74 mg/dL Normal 0.60-1.20 [facility] Comment on above: Performed By: #### C MP, MG, CBC #### [facility] [address] [place] [address] [place] Creatinine Clr Calc Pharmacy 130.29 Normal [facility] Comment on above: Performed By: #### C MP, MG, CBC #### [place] [address] [place] GFR/1.73 sq M.predicted MDRD (S/P/Bld) [Vol rate/Area] mL/min/{1.73_m2} Normal [facility] Comment on above: Performed By: #### C MP, MG, CBC #### [address] Globulin (S) [Mass/Vol] 2.7 g/dL Normal T he [facility] Comment on above: Performed By: #### C MP, MG, CBC #### [address] Glucose [Mass/Vol] 140 mg/dL High 70-100 [facility] Comment on above: Result Comment: [facility] Glucose Reference Range is dependent on time and content of last meal. Glucose of more than 200 mg/dL in a nonstressed, ambulatory subject supports the diagnosis of Diabetes Mellitus. ADA recommended reference range Performed By: #### C MP, MG, CBC #### [address] Potassium [Moles/Vol] 4.0 mmol/L Normal 3.5-5.1 [facility] Comment on above: Performed By: #### C MP, MG, CBC #### [address] Protein [Mass/Vol] 6.2 g/dL Low 6.4-8.9 [facility] Comment on above: Performed By: #### C MP, MG, CBC #### [address] Sodium [Moles/Vol] 137 mmol/L Normal 136-145 [facility] Comment on above: Performed By: #### C MP, MG, CBC #### [address] Urea nitrogen [Mass/Vol] 12 mg/dL Normal 7-25 [facility] Comment on above: Performed By: #### C MP, MG, CBC #### [address] Magnesiumon 08-28-2024 Magnesium [Mass/Vol] 2.0 mg/dL Normal 1.9-2.7 [facility] Comment on above: Result Comment: PERF ORMED BY: [place] [address] PATHOLOGIST BANQUET PILOT VIKTORIYA ROBERSON M.D. Performed By: #### C MP, MG, CBC #### [address] Magnesium [Mass/volume] in S shweta or PlasmaOrdered By: Winnie Miller on 08-28-2024 Magnesium [Mass/Vol] Magnesium [Mass/volume] in Serum or Plasma 1.9-2.7 [facility] Basophils Auto (Bld) [#/Vol] on 08-27-2024 Basophils (Bld) [#/Vol] Automated basoph il count 0.0-0.1 [facility] Basophils/100 WBC Auto (Bld) on 08-27-2024 Basophils/100 WBC (Bld) Automated basophil % 0. 2-2.0 [facility] Complete Blood Count Auto Di ffon 08-27-2024 Basophils (Bld) [#/Vol] 0.0 10*3/uL Normal 0.0-0.2 [facility] Comment on above: Result Comment: PERF ORMED BY: [place] [address] PATHOLOGIST BANQUET PILOT VIKTORIYA ROBERSON M.D. Performed By: #### P HOS, MG, CBC, CMP #### [address] Basophils/100 WBC (Bld) 0.2 % Normal . Debbi cheema [facility] Comment on above: Performed By: #### P HOS, MG, CBC, CMP #### [place] [address] [place] Eosinophils (Bld) [#/Vol] 0.0 10*3/uL Normal 0.0-0.45 [facility] Comment on above: Performed By: #### P HOS, MG, CBC, CMP #### [place] [address] [place] Eosinophils/100 WBC (Bld) 0.0 % Normal . [facility] Comment on above: Performed By: #### P HOS, MG, CBC, CMP #### [address] Erythrocyte distribution width (RBC) [Ratio] 14.9 % Normal 11.9-15.3 [facility] Comment on above: Performed By: #### P HOS, MG, CBC, CMP #### [address] Hematocrit (Bld) [Volume fraction] 34.7 % Normal 34.0-46.4 [facility] Comment on above: Performed By: #### P HOS, MG, CBC, CMP #### [address] Hemoglobin (Bld) [Mass/Vol] 11.8 g/dL Normal 11.8-15.4 [facility] Comment on above: Performed By: #### P HOS, MG, CBC, CMP #### [address] Lymphocytes (Bld) [#/Vol] 1.3 10*3/uL Normal 1.00-4.8 [facility] Comment on above: Performed By: #### P HOS, MG, CBC, CMP #### [address] Lymphocytes/100 WBC (Bld) 10.4 % Normal . [facility] Comment on above: Performed By: #### P HOS, MG, CBC, CMP #### [address] MCH (RBC) [Entitic mass] 29.0 pg Normal 24.7-34.3 [facility] [facility] Comment on above: Performed By: #### P HOS, MG, CBC, CMP #### [address] MCV (RBC) [Entitic vol] 85.5 fL Normal 80-100 T he [facility] Comment on above: Performed By: #### P HOS, MG, CBC, CMP #### [address] Mean Corpuscular HGB Conc 33.9 g/dL Normal 32.0-35.0 [facility] Comment on above: Performed By: #### P HOS, MG, CBC, CMP #### [address] Monocytes (Bld) [#/Vol] 0.6 10*3/uL Normal 0.0-0.8 [facility] Comment on above: Performed By: #### P HOS, MG, CBC, CMP #### [address] Monocytes/100 WBC (Bld) 5.1 % Normal . [facility] Comment on above: Performed By: #### P HOS, MG, CBC, CMP #### [address] Neutrophils (Bld) [#/Vol] 10.3 10*3/uL High 1.8-7.7 [facility] Comment on above: Performed By: #### P HOS, MG, CBC, CMP #### [address] Neutrophils/100 WBC (Bld) 84.3 % Normal . [facility] Comment on above: Performed By: #### P HOS, MG, CBC, CMP #### [address] NRBC% 0.0 /100{WBC} Normal 0-0.5 The [facility] Comment on above: Performed By: #### P HOS, MG, CBC, CMP #### [address] Platelet mean volume (Bld) [Entitic vol] 7.1 fL Normal 6.3-10.7 The [facility] Comment on above: Performed By: #### P HOS, MG, CBC, CMP #### [address] Platelets (Bld) [#/Vol] 205 10*3/uL Normal 150-450 [facility] Comment on above: Performed By: #### P HOS, MG, CBC, CMP #### [place] [address] [place] RBC (Bld) [#/Vol] 4.06 10*6/uL Normal 3.60-5.00 The [facility] Comment on above: Performed By: #### P HOS, MG, CBC, CMP #### [address] WBC (Bld) [#/Vol] 12.2 10*3/uL High 3.8-11.6 The [facility] Comment on above: Performed By: #### P HOS, MG, CBC, CMP #### [address] Comprehensive Metabolic Pane booker 08-27-2024 Albumin [Mass/Vol] 3.7 g/dL Normal 3.5-5.7 The [facility] Comment on above: Performed By: #### P HOS, MG, CBC, CMP #### [address] Albumin/Globulin [Mass ratio] 1.4 {ratio} Normal [facility] Comment on above: Performed By: #### P HOS, MG, CBC, CMP #### [address] ALP [Catalytic activity/Vol] 78 U/L Normal 34-104 [facility] Comment on above: Performed By: #### P HOS, MG, CBC, CMP #### [address] ALT [Catalytic activity/Vol] 12 U/L Normal 7-52 [facility] Comment on above: Performed By: #### P HOS, MG, CBC, CMP #### [address] Anion gap [Moles/Vol] 9.2 mmol/L Normal 6.0-15.0 [facility] Comment on above: Performed By: #### P HOS, MG, CBC, CMP #### [address] AST [Catalytic activity/Vol] 14 U/L Normal 13-39 [facility] Comment on above: Performed By: #### P HOS, MG, CBC, CMP #### [facility] [address] [place] [address] [place] Bilirubin [Mass/Vol] 1.3 mg/dL High 0.3-1.0 [facility] Comment on above: Result Comment: Samp les from patients who have taken Naproxen have shown spurious elevation in Total Bilirubin levels. A metabolite of Naproxen, O-desmethylnaproxen, has been shown to interfere with the Jendrassik-Grof method for measuring Total Bilirubin. Performed By: #### P HOS, MG, CBC, CMP #### [facility] [address] [place] [address] [place] Calcium [Mass/Vol] 9.3 mg/dL Normal 8.6-10.3 The [facility] Comment on above: Performed By: #### P HOS, MG, CBC, CMP #### [facility] [address] [place] [address] [place] Chloride [Moles/Vol] 100 mmol/L Normal 98-107 [facility] Comment on above: Performed By: #### P HOS, MG, CBC, CMP #### [facility] [address] [place] [address] [place] CO2 [Moles/Vol] 29.5 mmol/L Normal 21.0-31.0 The [facility] Comment on above: Performed By: #### P HOS, MG, CBC, CMP #### [facility] [address] [place] [address] [place] Creatinine [Mass/Vol] 0.71 mg/dL Normal 0.60-1.20 [facility] Comment on above: Performed By: #### P HOS, MG, CBC, CMP #### [facility] [address] [place] [address] [place] Creatinine Clr Calc Pharmacy 135.43 Normal [facility] Comment on above: Performed By: #### P HOS, MG, CBC, CMP #### [facility] [address] [place] [address] [place] GFR/1.73 sq M.predicted MDRD (S/P/Bld) [Vol rate/Area] mL/min/{1.73_m2} Normal [facility] Comment on above: Performed By: #### P HOS, MG, CBC, CMP #### [address] Globulin (S) [Mass/Vol] 2.6 g/dL Normal T he [facility] Comment on above: Performed By: #### P HOS, MG, CBC, CMP #### [address] Glucose [Mass/Vol] 126 mg/dL High 70-100 The [facility] Comment on above: Result Comment: Downs Glucose Reference Range is dependent on time and content of last meal. Glucose of more than 200 mg/dL in a nonstressed, ambulatory subject supports the diagnosis of Diabetes Mellitus. ADA recommended reference range Performed By: #### P HOS, MG, CBC, CMP #### [address] Potassium [Moles/Vol] 3.7 mmol/L Normal 3.5-5.1 [facility] Comment on above: Performed By: #### P HOS, MG, CBC, CMP #### [place] [address] [place] Protein [Mass/Vol] 6.3 g/dL Low 6.4-8.9 The [facility] Comment on above: Performed By: #### P HOS, MG, CBC, CMP #### [place] [address] [place] Sodium [Moles/Vol] 135 mmol/L Low 136-145 The [facility] Comment on above: Performed By: #### P HOS, MG, CBC, CMP #### [place] [address] [place] Urea nitrogen [Mass/Vol] 11 mg/dL Normal 7-25 [facility] Comment on above: Performed By: #### P HOS, MG, CBC, CMP #### [address] ECG 12 lead ECGon 08-27-2024 ECG 12 lead ECG [facility] [place] [place] [address] Electrocardiograph Report Signed Patient: Deidre Clemons MR#: [id number] : 1975 Acct:[id number] Age/Sex: 49 / F ADM Date: 08/27/24 Loc: 4 Room: 9S6179-7 Type: ADM IN Attending Dr: Marin Barron MD Ordering Provider: Bartolome Hong MD Date of Service: 08/27/24 ECG/ECG 12 lead ECG: pre-op Copies to: Test Reason : Blood Pressure : */* mmHG Vent. Rate : 85 BPM Atrial Rate : 85 BPM P-R Int : 178 ms QRS Dur : 82 ms QT Int : 386 ms P-R-T Axes : 45 -2 29 degrees QTcB Int : 459 ms Normal sinus rhythm Minimal voltage criteria for LVH, may be normal variant ( R in aVL ) Abnormal ECG When compared with ECG of 04-May-2012 09:14, Vent. rate has increased by 29 bpm Confirmed by MIREYA BLACKMON [facility], MAURO ([id number]) on 08/28/2024 12:44:40 PM Referred By: Electronically Signed By: MAURO STRAUSS MD FAC Transcribed By: MUS Signed By Mauro Strauss MD, FACC 08/28/24 1244 Normal [facility] Eosinophils/100 WBC Auto (Bl d)on 08-27-2024 Eosinophils/100 WBC (Bld) Automated eosinophil % Low 0.9-7.0 [facility] Erythrocyte distribution wid th Auto (RBC) [Ratio]on 08-27-2024 Erythrocyte distribution width (RBC) [Ratio] Erythrocyte distribution width [Ratio] by Automated count 11.0-15.0 [facility] Estimated glomerular filtrat ion rate (GFR) non- Americanon 08-27-2024 GFR/1.73 sq M.predicted among non-blacks MDRD (S/P/Bld) [Vol rate/Area] Estimated glomerular filtration rate (GFR) non- >=60 mL/min/1.73 m 2 [facility] Globulin Calc (S) [Mass/Vol] on 08-27-2024 Globulin (S) [Mass/Vol] Serum globulin measurement by calculation (mass/volume) [facility] Hematocrit Auto (Bld) [Volum e fraction]on 08-27-2024 Hematocrit (Bld) [Volume fraction] Hematocrit [Volume Fraction] of Blood by Automated count 36.0-48.0 [facility] Hemoglobin [Mass/volume] in Bloodon 08-27-2024 Hemoglobin (Bld) [Mass/Vol] Hemoglobin [Mass/volume] in Blood 12.0-16.0 [facility] Booker 08-27-2024 L - -------- Specimen: [id number] Received: 08/30/24 Status: LON Bassett Num: [id number] Spec Type: Surgical Subm Dr: Radha Padilla MD Tissues: A Appendix - Other than Incidental (APPENDIX) Procedures: HE/Mely Escobar/Gagandeep L3 -------- Age/ Patient Sex Location Account Attending Physician -------- Deidre Clemons 49/F 4N [id number] Marin Barron MD -------- SPEC NUM: [id number] RECD: 08/30/24 STATUS: LON BASSETT NUM: [id number] CARI: 08/27/24 DR: Radha Padilla MD ENTERED: 08/30/[address] [facility] [address]: BRAIN TYPE: Surgical DEPT: S ENTERED BY: [id number] RECV BY: [id number] ORDERED: HE/2, Gross/Micro L3 ORDERED: HE/2, Gross/Micro L3 Pathological Diagnosis Appendix, appendectomy: Acute appendicitis. Clinical Information Appendicitis Gross Description Part A is received in formalin labeled with the patients name, date of , and appendix is a vermiform appendix, 7.2 cm in length by up to 1.1 cm in diameter, resected with a small amount of mesoappendix, up to 0.5 cm in thickness. The serosa is purple-brown, dusky and dull with patchy regions of adherent basilio-cason, friable plaque-like material, consistent with exudate. The specimen is received stapled at the proximal margin; the proximal margin is inked black. Serial sections reveal a 0.3 cm in greatest dimension perforation at the distal tip and a dilated lumen, up to 0.8 cm in diameter, filled with fecal material. The inked black proximal margin and telemarketing representative cross-sections with exudate are submitted in A1 with the longitudinally bisected, perforated distal tip in A2. (2, ss, [id number] A) CPT Codes 06520 -------- -------- Specimen: [id number] Received: 08/30/24 Status: LON Bassett Num: [id number] Spec Type: Surgical Subm Dr: Radha Padilla MD Tissues: A Appendix - Other than Incidental (APPENDIX) Procedures: HE/2, Gross/Micro L3 -------- Patient: Deidre Clemons [id number] (Continued) -------- Signed (signature on file) Viktoriya Roberson MD 08/31/24 1407 Normal [facility] Laboratory - Chemistry and C hemistry - challengeon 08-27-2024 Bilirubin Ql (U) Negative NEGATIVE [facility] Glucose (U) [Mass/Vol] Negative NEGATIVE Fi relaCounts include 234 beds at the [facility] Ketones Ql (U) Negative NEGATIVE [facility] pH (U) 7.0 [pH] 5.0-9.0 [facility] Specific gravity (U) [Rel density] 1.010 1.005-1.025 [facility] Urobilinogen Qn (U) 0.2 {Jammie'U}/dL 0.2-1.0 [facility] Albumin [Mass/Vol] 3.2 g/dL Low 3.4-5.0 [facility] ALP [Catalytic activity/Vol] 90 U/L 46-116 [facility] ALT [Catalytic activity/Vol] 17 U/L 14-59 [facility] AST [Catalytic activity/Vol] 8 U/L Low 15-37 [facility] Bilirubin [Mass/Vol] 1.5 mg/dL High 0.2-1.0 [facility] Calcium [Mass/Vol] 9.6 mg/dL 8.5-10.1 [facility] Chloride [Moles/Vol] 100 mmol/L 98-107 [facility] CO2 [Moles/Vol] 28.6 mmol/L 21.0-32.0 [facility] Creatinine [Mass/Vol] 0.95 mg/dL 0.55-1.02 [facility] GFR/1.73 sq M.predicted MDRD (S/P/Bld) [Vol rate/Area] mL/min/{1.73_m2} >=60 mL/min/1.73 m 2 [facility] Glucose [Mass/Vol] 175 mg/dL High 74-106 [facility] Lactate [Moles/Vol] 2.2 mmol/L Critically high 0.4-2.0 [facility] Comment on above: RESULTS CALLED TO DINORAH Baker DO @BY Binu Andrews MLT at 0253 Lipase [Catalytic activity/Vol] 31.0 U/L 16.0-77.0 [facility] Potassium [Moles/Vol] 3.8 mmol/L 3.5-5.1 [facility] Protein [Mass/Vol] 6.7 g/dL 6.4-8.2 [facility] Sodium [Moles/Vol] 137 mmol/L 136-145 [facility] Urea nitrogen [Mass/Vol] 12.0 mg/dL 7.0-18.0 [facility] Urea nitrogen/Creatinine [Mass ratio] 12.6 mg/mg [facility] Laboratory - Hematology and Cell countson 08-27-2024 Immature granulocytes/100 WBC (Bld) 0.3 % 0.0-0.5 [facility] - Specimen inform ationon 08-27-2024 Appearance (U) CLEAR CLEAR [facility] Color (U) YELLOW YELLOW [facility] - Urinalysison Leukocyte esterase Test strip Ql (U) Negative NEGATIVE [facility] Mucus Ql (Urine sed) NONE SEEN NONE SEEN [facility] Nitrite Ql (U) Negative NEGATIVE [facility] Protein Ql (U) Negative NEG/TRACE [facility] Leukocytes [#/volume] correc kae for nucleated erythrocytes in Blood by Automated counon 08-27-2024 WBC corrected for nucl RBC Auto (Bld) [#/Vol] Leukocytes [#/volume] corrected for nucleated erythrocytes in Blood by Automated coun High 4.0-11.0 [facility] Lymphocytes Auto (Bld) [#/Vo l]on 08-27-2024 Lymphocytes (Bld) [#/Vol] Lymphocytes [#/volume] in Blood by Automated count Low 1.2-3.8 [facility] Lymphocytes/100 WBC Auto (Bl d)on 08-27-2024 Lymphocytes/100 WBC (Bld) Lymphocytes/100 leukocytes in Blood by Automated count Low 20.5-60.0 [facility] MCH Auto (RBC) [Entitic mass ]on 08-27-2024 MCH (RBC) [Entitic mass] MCH [Entitic mass] by Automated count 26.7-34.0 [facility] MCHC Auto (RBC) [Mass/Vol]on 08-27-2024 MCHC (RBC) [Mass/Vol] MCHC [Mass/volume] by Automated count 29.9-35.2 [facility] MCV Auto (RBC) [Entitic vol] on 08-27-2024 MCV (RBC) [Entitic vol] MCV [Entitic vol ume] by Automated count 81.0-99.0 [facility] Magnesiumon 08-27-2024 Magnesium [Mass/Vol] 1.6 mg/dL Low 1.9-2.7 [facility] Comment on above: Result Comment: PERF ORMED BY: [facility] [address] [place] [address] PATHOLOGIST BANQUET PILOT VIKTORIYA ROBERSON M.D. Performed By: #### P HOS, MG, CBC, CMP #### [facility] [address] Monocytes Auto (Bld) [#/Vol] on 08-27-2024 Monocytes (Bld) [#/Vol] Automated blood monocyte count 0.3-0.8 [facility] Monocytes/100 WBC Auto (Bld) on 08-27-2024 Monocytes/100 WBC (Bld) Automated monocyte % 1. 7-12.0 [facility] Neutrophils Auto (Bld) [#/Vo l]on 08-27-2024 Neutrophils (Bld) [#/Vol] Neutrophils [#/volume] in Blood by Automated count High 1.4-6.5 [facility] Neutrophils/100 WBC Auto (Bl d)on 08-27-2024 Neutrophils/100 WBC (Bld) Automated neutrophil % High 43.0-75.0 [facility] No Panel Informationon 08-27 Urine Bacteria NONE SEEN #/HPF NONE SEEN [facility] Urine Occult Blood TRACE-I NEGATIVE [facility] Urine Other Casts NONE SEEN #/LPF NONE SEEN [facility] Urine Other Crystals None Seen #/HPF None Seen [facility] Urine RBC 0-2 #/HPF 0-2 [facility] Urine Squamous Epithelial Cells FEW #/LPF Abnormal NONE/RARE [facility] Urine WBC 0-2 #/HPF Abnormal NONE SEEN [facility] Eosinophils # (Auto) 0.0 10 3/uL 0.0-0.7 [facility] Human Chorionic Gonadotropin, Qual Negative NEGATIVE [facility] Immature Granulocyte # (Auto) 0.04 10 3/uL High 0.00-0.03 [facility] Troponin I High Sensitivity 6.5 pg/mL 4.0-51.3 [facility] Comment on above: CUT-OFF POINTS HAVE BEEN ESTABLISHED BASED ON THE FOURTHUNIVERSAL DEFINITION OF MYOCARDIAL INFARCTION. THE UPPERREFERENCE LIMIT (URL) OF TROPONIN, DEFINED THE 99THPERCENTILE OF cTnI DISTRIBUTION IN A REFERENCE POPULATION,HAS BEEN CONFIRMED THE DECISION THRESHOLD FOR MIDIAGNOSIS.99TH PERCENTILE = 51.4 PG/MLNOTE: HIGH-SENSITIVITY TROPONIN ASSAY IS NOT INTENDED TO BEUSED IN ISOLATION BUT SHOULD BE INTERPRETED IN CONJUNCTIONWITH OTHER DIAGNOSTIC AND CLINICAL INFORMATION. Phosphate [Mass/volume] in S shweta or PlasmaOrdered By: Justin Horton on 08-27-2024 Phosphate [Mass/Vol] Phosphate [Mass/volume] in Serum or Plasma 2.5-4.5 [facility] Phosphoruson 08-27-2024 Phosphate [Mass/Vol] 4.5 mg/dL Normal 2.5-4.5 [facility] Comment on above: Performed By: #### P HOS, MG, CBC, CMP #### [facility] [address] Platelet mean volume Auto (B ld) [Entitic vol]on 08-27-2024 Platelet mean volume (Bld) [Entitic vol] Platelet mean volume [Entitic volume] in Blood by Automated count Low 9.5-13.5 [facility] Platelets Auto (Bld) [#/Vol] on 08-27-2024 Platelets (Bld) [#/Vol] Platelets [#/vol ume] in Blood by Automated count 150-450 [facility] RBC Auto (Bld) [#/Vol]on RBC (Bld) [#/Vol] Erythrocytes [#/volume] in Blood by Automated count 4.20-5.40 [facility] Serum or plasma albumin/glob ulin mass ratioon 08-27-2024 Albumin/Globulin [Mass ratio] Serum or plasma albumin/globulin mass ratio [facility] Serum or plasma anion gap de terminationon 08-27-2024 Anion gap [Moles/Vol] Serum or plasma an ion gap determination [facility] Surgical Pathologyon 024 Surgical Pathology Normal [facility] Comment on above: Result Comment: [facility] [address] [place] [address] Surgical Pathology Consultation Patient Name:DEIDRE CLEMONS:1975 (Age: 48)Gender:FTaken:02/03/2024eported:02/06/2024hysician(s):Russ Deena Mcnamara DO ([phone])Copy To: Rec. #:[id number]: #[id number] Final Pathologic Diagnosis Endometrium, biopsy: Late proliferative endometrium. Report Electronically Signed Out gr/02/06/2024Vasiliy Morfin MD Interpretation [place] [address], License number: [id number]. Clinical History Dysfunctional uterine bleeding (DUB) N93.8. Gross Description Received in formalin labeled VICKEY CLEMONS are multiple portions of pink-basilio soft tissue admixed with hemorrhagic material and basilio possible mucoid material, 1.8 x 0.6 x 0.2 cm in aggregate. The specimens are filtered and submitted entirely in a single cassette. (1, ns, [id number], m4) GEOVANY dupree/02/04/2024GP Specimen(s) Received Endometrial biopsy Fee Codes(s): 1; 99239 US PELVIC WITH TRANSVAGINALo n 01-20-2024 US PELVIC WITH TRANSVAGINAL US PELVIC WITH TRANSVAGINAL HISTORY: History of polycystic ovarian syndrome with prolonged amenorrhea but now having menorrhagia and irregular prolonged periods. Right-sided pelvic pain COMPARISON: None TECHNIQUE: Multiplanar transabdominal and transvaginal ultrasonography of the pelvis using grayscale imaging, supplemented by color Doppler as needed. FINDINGS: Examination was somewhat limited due to patient body habitus and presence of bowel gas limiting visualization. The uterus measures 7.1 x 4.7 x 5.6 cm. Normal contour without focal lesions. Endometrial stripe measures 7.3 mm in thickness which is normal for menstruating female. Small nabothian cysts are seen in the cervix .The right ovary is not visualized likely due to presence of bowel gas in the right adnexa limiting visualization .The left ovary measures 2.3 x 1.5 x 2.4 cm. No adnexal masses. Color Doppler demonstrates arterial and venous flow in the left ovary The bladder is within normal limits. No fluid in the cul-de-sac.. IMPRESSION: Nabothian cysts are seen in the cervix of the uterus. Nonvisualized right ovary due to presence of bowel gas limiting visualization. Otherwise, unremarkable uterus and left ovary. No definite evidence of polycystic ovarian syndrome.. Finalized by William Haro MD on 01/20/2024 9:09 PM Normal [facility] COVID/FLU RT-PCRon 3 SARS-CoV-2 (COVID-19) RNA DARBY+probe Ql (Unsp spec) Negative [facility] Other COVID/FLU RT-PCR Negative EGT Other COVID Quick Testingon 2021 Result Positive [facility] Other Quick Strepon 03-07-2022 S. pyogenes Org specific cx Ql (Throat) Negative EGT Other Quick Strep [facility] Other ER URINE PROFILEon 1 Bilirubin Ql (U) Negative Normal NEGATIVE [facility] Comment on above: Performed By: #### E RUR #### [facility] [address] [place] [address] Beverly Sandra Clarity (U) CLEAR Normal CLEAR [facility] Comment on above: Performed By: #### E RUR #### [facility] [address] [place] [address] Beverly Sandra Color (U) YELLOW Normal YELLOW [facility] Comment on above: Performed By: #### E RUR #### [facility] [address] [place], [place] [address] Beverly Sandra ERUAHD A micrscopic examination will be performed if indicated. Normal [facility] Comment on above: Performed By: #### E RUR #### [facility] [address] [place] [address] Beverly Sandra Glucose Ql (U) Negative Normal NEGATIVE [facility] Comment on above: Performed By: #### E RUR #### [facility] [address] [place] [address] Beverly Sandra Hemoglobin Ql (U) Negative Normal NEGATIVE [facility] Comment on above: Performed By: #### E RUR #### [facility] [address] [place] [address] Beverly Sandra Ketones Ql (U) Negative Normal NEGATIVE [facility] Comment on above: Performed By: #### E RUR #### [facility] [address] [place], [place] [address] Beverly Sandra LEUKOCYTES Negative Normal NEGATIVE [facility] Comment on above: Performed By: #### E RUR #### [facility] [address] [place], [place] [address] Beverly Sandra Nitrite Ql (U) Negative Normal NEGATIVE [facility] Comment on above: Performed By: #### E RUR #### [facility] [address] [place] [address] Beverly Sandra pH (U) 6.5 [pH] Normal 5-9 [facility] Comment on above: Performed By: #### E RUR #### [facility] [address] [place] [address] Beverly Sandra SPEC GRAVITY 1.010 Normal 1.005-<=1.0 25 [facility] Comment on above: Performed By: #### E RUR #### [facility] [address] [place] [address] Beverly Sandra UA PROTEIN Negative Normal NEGATIVE/ TRACE [facility] Comment on above: Performed By: #### E RUR #### [facility] [address] [place] [address] Beverly Sandra UR MICRO IND NOT INDICATED Normal [facility] Comment on above: Performed By: #### E RUR #### [facility] [address] [place], [place] [address] Beverly Sandra Urobilinogen Qn (U) 1.0 {Jammie'U}/dL Normal 0.2 - 1. 0 [facility] Comment on above: Performed By: #### E RUR #### [facility] [address] [place] [address] Beverly Sandra PREG HCG QUALon 12-25-2020 , QUAL Negative Normal NEGATIVE [facility] Comment on above: Performed By: #### P REG #### [facility] [address] [place], [place] [address] Beverly Flores XR CHEST 2 Von 12-25-2020 XR CHEST 2 V EXAMINATION: XR CHES T 2 V HISTORY: Pain COMPARISON: 10/07/2020 TECHNIQUE: PA and lateral FINDINGS: LUNGS: No significant pulmonary parenchymal abnormalities. VASCULATURE: No increased pulmonary vasculature. PLEURA: No pneumothorax, effusion, or pleural thickening. CARDIAC: No cardiomegaly or cardiac silhouette abnormality. MEDIASTINUM: No visible mass or adenopathy. BONES: Moderate degenerative disc disease and spondylosis without visible acute abnormalities. OTHER: Negative. IMPRESSION: No acute disease. Electronically authenticated by: HALEY PICKENS Date: 2020-12-25 11:43 Normal [facility] XR CHEST 2 Von 10-07-2020 SARS-CoV-2 (COVID-19) RNA DARBY+probe Ql (Unsp spec) CHEST X-RAY, TWO VIEWS HISTORY: Follow up pneumonia. COVID-19. COMPARISON: 08/20/2020. FINDINGS: The heart, georgiana, and mediastinum are unremarkable. There is near resolution of multilobar airspace disease with residual increased markings seen in the right upper lobe and left lower lobe. There are no pleural effusions. There is no pneumothorax. IMPRESSION: Near-complete resolution of multilobar pneumonia. Electronically authenticated by: IRA BOX Date: 2020-10-07 11:47 Normal [facility] CBC AUTO DIFFon 08-22-2020 BASO # 0.0 103/ul Normal 0.0-0.1 [facility] Comment on above: Performed By: #### C BC ####[facility] [address]xm[address] [place], [place] [address]SoaihoBeverly Flores Basophils/100 WBC (Bld) 0.1 % Critically low 0.2-2.0 [facility] Comment on above: Performed By: #### C BC ####[facility] Mdbqwenuao3649 [place], [place] [address]SvdrrmBeverly Flores EO # 0.0 103/ul Normal 0.0-0.7 [facility] Comment on above: Performed By: #### C BC ####[facility] Jjvmbptcbr1576 [place], [place] [address]Nhceqg Sandra Eosinophils/100 WBC (Bld) 0.0 % Critically low 0.9-7.0 [facility] Comment on above: Performed By: #### C BC ####[facility] [address]cl[address] [place] [id number] Sandra Erythrocyte distribution width (RBC) [Ratio] 14.2 % Normal 11.0-15.0 [facility] Comment on above: Performed By: #### C BC ####[facility] [address]up[address]se[address] [place] [id number] Sandra Hematocrit (Bld) [Volume fraction] 33.8 % Critically low 36.0-48.0 [facility] Comment on above: Performed By: #### C BC ####[facility] W[address] [place], [place] [address]Gerken Sandra Hemoglobin (Bld) [Mass/Vol] 10.8 g/dL Critically low 12.0-16.0 [facility] Comment on above: Performed By: #### C BC ####[facility] S[address]fr[address] [place], [place] [address]Gerken Sandra IG # 0.10 10e3/ul Critically high 0.00-0.03 [facility] Comment on above: Performed By: #### C BC ####[facility] Lrhkdmvqgs0834 [place] [id number] Sandra IG % 0.9 % Critically high 0.0-0.5 [facility] Comment on above: Performed By: #### C BC ####[facility] Jlabcolzum[address] [place] [id number] Sandra LYMPH # 1.1 103/ul Critically low 1.2-3.8 [facility] Comment on above: Performed By: #### C BC ####[facility] [address]ravks[address] [place], [place] [address]Gerken Sandra Lymphocytes/100 WBC (Bld) 10.3 % Critically low 20.5-60.0 [facility] Comment on above: Performed By: #### C BC ####[facility] Y[address]awkzzrs26[address] [place] [id number] Flores MANUAL DIFF REQ NO Normal [facility] Comment on above: Performed By: #### C BC ####[facility] Lnlvjylvjg8413 [place] [phone] Flores MCH (RBC) [Entitic mass] 29.0 pg Normal 26.7-34.0 [facility] Comment on above: Performed By: #### C BC ####[facility] Kwppuvetxp4029 [place] [id number] Sandra MCHC (RBC) [Mass/Vol] 32.0 g/dL Normal 29.9-35.2 [facility] Comment on above: Performed By: #### C BC ####[facility] [address] [place] [address] Sandra MCV (RBC) [Entitic vol] 90.9 fL Normal 81.0-99.0 [facility] Comment on above: Performed By: #### C BC ####[facility] [address] [place], [place] [address]Gerken Sandra MONO # 0.4 103/ul Normal 0.3-0.8 [facility] Comment on above: Performed By: #### C BC ####[facility] [address] [place], [place] [address]abner Flores Monocytes/100 WBC (Bld) 3.2 % Normal 1.7-12.0 [facility] Comment on above: Performed By: #### C BC ####[facility] [address] [place], [place] [address]Gerken Sandra NEUT # 9.4 103/ul Critically high 1.4-6.5 [facility] Comment on above: Performed By: #### C BC ####[facility] [address] [place], [place] [address]Gerabner Flores Neutrophils/100 WBC (Bld) 85.5 % Critically high 43.0-75.0 [facility] Comment on above: Performed By: #### C BC ####[facility] Sullnuuece6634 [place], [place] [address]PxtggaBeverly Flores Platelet mean volume (Bld) [Entitic vol] 9.6 fL Normal 9.5-13.5 [facility] Comment on above: Performed By: #### C BC ####[facility] Zsjzzpbxsm1285 [place], [place] [address]Kzyifw Sandra PLT 223 103/ul Normal 150-450 [facility] Comment on above: Performed By: #### C BC ####[facility] [address] [place], [place] [address]Kakzph Sandra RBC 3.72 106/ul Critically low 4.20-5.40 [facility] Comment on above: Performed By: #### C BC ####[facility] Jyqvvievuf8607 [place], [place] [address]Dfihkz Sandra WBC 11.0 103/ul Normal 4.0-11.0 [facility] Comment on above: Performed By: #### C BC ####[facility] Jmsltbthfy2935 [place], [place] [address]RlbfldBeverly Flores PROF CHEM 8 (BAS METB)on Anion gap [Moles/Vol] 10.9 mmol/L Normal [facility] Comment on above: Performed By: #### B MP #### [facility] [address] [place], [place] [address] Beverly Sandra Calcium [Mass/Vol] 8.3 mg/dL Critically low 8.4-10.2 [facility] Comment on above: Performed By: #### B MP #### [facility] [address] [place], [place] [address] Beverly Sandra Chloride [Moles/Vol] 104 mmol/L Normal 98-107 [facility] Comment on above: Performed By: #### B MP #### [facility] [address] [place], [place] [address] Beverly Sandra CO2 [Moles/Vol] 28.7 mmol/L Normal 22.0-30.0 [facility] Comment on above: Performed By: #### B MP #### [facility] [address] [place] [id number] Beverly Sandra Creatinine [Mass/Vol] 0.87 mg/dL Normal 0.52-1.04 [facility] Comment on above: Performed By: #### B MP #### [facility] [address] [place], [place] [address] Beverly Sandra EGFR-AF SENEGALESE >60 Normal >=60 [facility] Comment on above: Performed By: #### B MP #### [facility] [address] [place] [id number] Beverly Sandra EGFR-NON AF SENEGALESE >60 Normal >=60 [facility] Comment on above: Performed By: #### B MP #### [facility] [address] [place] [address] Beverly Sandra Glucose [Mass/Vol] 158 mg/dL Critically high 74-106 [facility] Comment on above: Performed By: #### B MP #### [facility] [address] [place] [id number] Beverly Sandra Potassium [Moles/Vol] 3.6 mmol/L Normal 3.4-5.0 [facility] Comment on above: Performed By: #### B MP #### [facility] [address] [place], [place] [address] Beverly Sandra Sodium [Moles/Vol] 140 mmol/L Normal 137-145 [facility] Comment on above: Performed By: #### B MP #### [facility] [address] [place] [id number] Beverly Sandra Urea nitrogen [Mass/Vol] 23.0 mg/dL Critically high 7.0-17.0 [facility] Comment on above: Performed By: #### B MP #### [facility] [address] [place] [id number] Beverly Sandra Urea nitrogen/Creatinine [Mass ratio] 26.4 mg/mg Normal [facility] Comment on above: Performed By: #### B MP #### [facility] [address] [place] [id number] Beverly Sandra CBC AUTO DIFFon 08-21-2020 BASO # 0.0 103/ul Normal 0.0-0.1 [facility] Comment on above: Performed By: #### C BC #### [facility] [address] [place] [id number] Beverly Flores Basophils/100 WBC (Bld) 0.2 % Normal 0.2-2.0 [facility] Comment on above: Performed By: #### C BC #### [facility] [address] [place] [address] Beverly Sandra EO # 0.0 103/ul Normal 0.0-0.7 [facility] Comment on above: Performed By: #### C BC #### [facility] [address] [place] [address] Beverly Sandra Eosinophils/100 WBC (Bld) 0.0 % Critically low 0.9-7.0 [facility] Comment on above: Performed By: #### C BC #### [facility] [address] [place] [address] Beverly Flores Erythrocyte distribution width (RBC) [Ratio] 14.1 % Normal 11.0-15.0 [facility] Comment on above: Performed By: #### C BC #### [facility] [address] [place] [address] Beverly Flores Hematocrit (Bld) [Volume fraction] 34.2 % Critically low 36.0-48.0 [facility] Comment on above: Performed By: #### C BC #### [facility] [address] [place] [address] Beverly Sandra Hemoglobin (Bld) [Mass/Vol] 11.2 g/dL Critically low 12.0-16.0 [facility] Comment on above: Performed By: #### C BC #### [facility] [address] [place] [address] Beverly Sandra IG # 0.05 10e3/ul Critically high 0.00-0.03 [facility] Comment on above: Performed By: #### C BC #### [facility] [address] [place] [address] Beverlyabner Flores IG % 0.9 % Critically high 0.0-0.5 [facility] Comment on above: Performed By: #### C BC #### [facility] [address] [place] [address] Beverlyabner Flores LYMPH # 0.8 103/ul Critically low 1.2-3.8 [facility] Comment on above: Performed By: #### C BC #### [facility] [address] [place] [address] Beverly Flores Lymphocytes/100 WBC (Bld) 14.4 % Critically low 20.5-60.0 [facility] Comment on above: Performed By: #### C BC #### [facility] [address] [place] [address] Beverly Flores MANUAL DIFF REQ NO Normal [facility] Comment on above: Performed By: #### C BC #### [facility] [address] [place] [address] Beverlyabner Flores MCH (RBC) [Entitic mass] 28.8 pg Normal 26.7-34.0 [facility] Comment on above: Performed By: #### C BC #### [facility] [address] [place] [address] Beverly Flores MCHC (RBC) [Mass/Vol] 32.7 g/dL Normal 29.9-35.2 [facility] Comment on above: Performed By: #### C BC #### [facility] [address] [place] [address] Beverlyabner Flores MCV (RBC) [Entitic vol] 87.9 fL Normal 81.0-99.0 [facility] Comment on above: Performed By: #### C BC #### [facility] [address] [place] [address] Beverlyabner Guardadoen MONO # 0.2 103/ul Critically low 0.3-0.8 [facility] Comment on above: Performed By: #### C BC #### [facility] [address] [place] [address] Beverlybaner Guardadoen Monocytes/100 WBC (Bld) 3.9 % Normal 1.7-12.0 [facility] Comment on above: Performed By: #### C BC #### [facility] [address] [place], [place] [address] Beverly Flores NEUT # 4.3 103/ul Normal 1.4-6.5 [facility] Comment on above: Performed By: #### C BC #### [facility] [address] [place], [place] [address] Beverly Flores Neutrophils/100 WBC (Bld) 80.6 % Critically high 43.0-75.0 [facility] Comment on above: Performed By: #### C BC #### [facility] [address] [place], [place] [address] Beverly Flores Platelet mean volume (Bld) [Entitic vol] 9.4 fL Critically low 9.5-13.5 [facility] Comment on above: Performed By: #### C BC #### [facility] [address] [place], [place] [address] Beverlyabner Guardadoen PLT 201 103/ul Normal 150-450 [facility] Comment on above: Performed By: #### C BC #### [facility] [address] [place], [place] [address] Beverly Sandra RBC 3.89 106/ul Critically low 4.20-5.40 [facility] Comment on above: Performed By: #### C BC #### [facility] [address] [place], [place] [address] Beverlyabner Guardadoen WBC 5.3 103/ul Normal 4.0-11.0 [facility] Comment on above: Performed By: #### C BC #### [facility] [address] [place], [place] [address] Beverly Flores PROF CHEM 8 (BAS METB)on Anion gap [Moles/Vol] 10.3 mmol/L Normal [facility] Comment on above: Performed By: #### B MP #### [facility] [address] [place], [place] [address] Beverlyabner Flores Calcium [Mass/Vol] 8.4 mg/dL Normal 8.4-10.2 [facility] Comment on above: Performed By: #### B MP #### [facility] [address] [place] [id number] Beverly Sandra Chloride [Moles/Vol] 102 mmol/L Normal 98-107 [facility] Comment on above: Performed By: #### B MP #### [facility] [address] [place] [id number] Beverly Sandra CO2 [Moles/Vol] 28.1 mmol/L Normal 22.0-30.0 [facility] Comment on above: Performed By: #### B MP #### [facility] [address] [place] [id number] Beverly Sandra Creatinine [Mass/Vol] 0.65 mg/dL Normal 0.52-1.04 [facility] Comment on above: Performed By: #### B MP #### [facility] [address] [place] [address] Beverly Sandra EGFR-AF SENEGALESE >60 Normal >=60 [facility] Comment on above: Performed By: #### B MP #### [facility] [address] [place], [place] [address] Beverly Sandra EGFR-NON AF SENEGALESE >60 Normal >=60 [facility] Comment on above: Performed By: #### B MP #### [facility] [address] [place] [address] Beverly Sandra Glucose [Mass/Vol] 187 mg/dL Critically high 74-106 [facility] Comment on above: Performed By: #### B MP #### [facility] [address] [place], [place] [address] Beverly Sandra Potassium [Moles/Vol] 3.4 mmol/L Normal 3.4-5.0 [facility] Comment on above: Performed By: #### B MP #### [facility] [address] [place], [place] [address] Beverly Sandra Sodium [Moles/Vol] 137 mmol/L Normal 137-[address] [facility] Comment on above: Performed By: #### B MP #### [facility] [address] [place] [id number] Beverly Sandra Urea nitrogen [Mass/Vol] 14.0 mg/dL Normal 7.0-17.0 [facility] Comment on above: Performed By: #### B MP #### [facility] [address] [place], [place] [address] Beverly Sandra Urea nitrogen/Creatinine [Mass ratio] 21.5 mg/mg Normal [facility] Comment on above: Performed By: #### B MP #### [facility] [address] [place], [place] [address] Beverly Sandra CBC AUTO DIFFon 08-20-2020 BASO # 0.0 103/ul Normal 0.0-0.1 [facility] Comment on above: Performed By: #### C BC #### [facility] [address] [place], [place] [address] Beverly Sandra Basophils/100 WBC (Bld) 0.2 % Normal 0.2-2.0 [facility] Comment on above: Performed By: #### C BC #### [facility] [address] [place], [place] [address] Beverly Sandra EO # 0.0 103/ul Normal 0.0-0.7 [facility] Comment on above: Performed By: #### C BC #### [facility] [address] [place], [place] [address] Beverly Sandra Eosinophils/100 WBC (Bld) 0.2 % Critically low 0.9-7.0 [facility] Comment on above: Performed By: #### C BC #### [facility] [address] [place], [place] [address] Beverly Sandra Erythrocyte distribution width (RBC) [Ratio] 14.2 % Normal 11.0-15.0 [facility] Comment on above: Performed By: #### C BC #### [facility] [address] [place], [place] [address] Beverly Sandra Hematocrit (Bld) [Volume fraction] 36.8 % Normal 36.0-48.0 [facility] Comment on above: Performed By: #### C BC #### [facility] [address] [place] [address] Beverlyabner Flores Hemoglobin (Bld) [Mass/Vol] 12.0 g/dL Normal 12.0-16.0 [facility] Comment on above: Performed By: #### C BC #### [facility] [address] [place] [address] Beverlyabner Flores IG # 0.03 10e3/ul Normal 0.00-0.03 [facility] Comment on above: Performed By: #### C BC #### [facility] [address] [place] [address] Beverly Sandra IG % 0.7 % Critically high 0.0-0.5 [facility] Comment on above: Performed By: #### C BC #### [facility] [address] [place] [address] Beverly Sandra LYMPH # 1.2 103/ul Normal 1.2-3.8 [facility] Comment on above: Performed By: #### C BC #### [facility] [address] [place] [address] Beverly Flores Lymphocytes/100 WBC (Bld) 28.3 % Normal 20.5-60.0 [facility] Comment on above: Performed By: #### C BC #### [facility] [address] [place], [place] [address] Beverly Flores MANUAL DIFF REQ NO Normal [facility] Comment on above: Performed By: #### C BC #### [facility] [address] [place] [address] Beverlyabner Flores MCH (RBC) [Entitic mass] 29.0 pg Normal 26.7-34.0 [facility] Comment on above: Performed By: #### C BC #### [facility] [address] [place], [place] [address] Beverlyabner Flores MCHC (RBC) [Mass/Vol] 32.6 g/dL Normal 29.9-35.2 [facility] Comment on above: Performed By: #### C BC #### [facility] [address] [place] [address] Beverly Sandra MCV (RBC) [Entitic vol] 88.9 fL Normal 81.0-99.0 [facility] Comment on above: Performed By: #### C BC #### [facility] [address] [place], [place] [address] Beverly Flores MONO # 0.3 103/ul Normal 0.3-0.8 [facility] Comment on above: Performed By: #### C BC #### [facility] [address] [place], [place] [address] Beverly Flores Monocytes/100 WBC (Bld) 6.1 % Normal 1.7-12.0 [facility] Comment on above: Performed By: #### C BC #### [facility] [address] [place] [address] Beverly Flores NEUT # 2.7 103/ul Normal 1.4-6.5 [facility] Comment on above: Performed By: #### C BC #### [facility] [address] [place] [address] Beverly Flores Neutrophils/100 WBC (Bld) 64.5 % Normal 43.0-75.0 [facility] Comment on above: Performed By: #### C BC #### [facility] [address] [place], [place] [address] Beverly Flores Platelet mean volume (Bld) [Entitic vol] 9.2 fL Critically low 9.5-13.5 [facility] Comment on above: Performed By: #### C BC #### [facility] [address] [place], [place] [address] Beverly Sandra PLT 175 103/ul Normal 150-450 [facility] Comment on above: Performed By: #### C BC #### [facility] [address] [place], [place] [address] Beverly Sandra RBC 4.14 106/ul Critically low 4.20-5.40 [facility] Comment on above: Performed By: #### C BC #### [facility] [address] [place] [address] Beverly Sandra WBC 4.1 103/ul Normal 4.0-11.0 [facility] Comment on above: Performed By: #### C BC #### [facility] [address] [place], [place] [address] Beverly Sandra PROF 14(COMP METB)on 021 Albumin [Mass/Vol] 3.2 g/dL Critically low 3.5-5.0 [facility] Comment on above: Performed By: #### H BALWINDER, CMP ####[facility] [address] [place], [place] [address]Asjlzx Sandra Albumin/Globulin [Mass ratio] 0.8 {ratio} Normal [facility] Comment on above: Performed By: #### H BALWINDER, CMP ####[facility] [address] [place], [place] [address]Jmxjqe Sandra ALP [Catalytic activity/Vol] 99 U/L Normal 38-126 [facility] Comment on above: Performed By: #### H BALWINDER, CMP ####[facility] [address]25[address] [place], [place] [address]Ybgdbv Sandra ALT [Catalytic activity/Vol] 28 U/L Normal 9-52 [facility] Comment on above: Performed By: #### H BALWINDER, CMP ####[facility] V[address]fl[address] [place], [place] [address]Fearmv Sandra Anion gap [Moles/Vol] 8.6 mmol/L Normal [facility] Comment on above: Performed By: #### H BALWINDER, CMP ####[facility] Ajq[address] [place], [place] [address]Vcunjk Sandra AST [Catalytic activity/Vol] 21 U/L Normal 14-36 [facility] Comment on above: Performed By: #### H STROFAUSTINO, CMP ####[facility] [address]oz[address] [place], [place] [address]Hpgiwm Sandra Bilirubin [Mass/Vol] 1.0 mg/dL Normal 0.2-1.3 [facility] Comment on above: Performed By: #### H BALWINDER, CMP ####[facility] [address]dxbw[address] [place], [place] [address]Wlodla Sandra Calcium [Mass/Vol] 8.5 mg/dL Normal 8.4-10.2 [facility] Comment on above: Performed By: #### H STROFAUSTINO, CMP ####[facility] [address] Sandra Chloride [Moles/Vol] 100 mmol/L Normal 98-107 [facility] Comment on above: Performed By: #### H STROFAUSTINO, CMP ####[facility] Qnpubk[address]by[address] Sandra CO2 [Moles/Vol] 30.9 mmol/L Critically high 22.0-30.0 [facility] Comment on above: Performed By: #### H STROFAUSTINO, CMP ####[facility] [address] [place] [address] Sandra Creatinine [Mass/Vol] 0.80 mg/dL Normal 0.52-1.04 [facility] Comment on above: Performed By: #### H BALWINDER, CMP ####[facility] [address] [place], [place] [address]Gerken Sandra EGFR-AF SENEGALESE >60 Normal >=60 [facility] Comment on above: Performed By: #### H BALWINDER, CMP ####[facility] [address] [place] [address] Sandra EGFR-NON AF SENEGALESE >60 Normal >=60 [facility] Comment on above: Performed By: #### H STROFAUSTINO, CMP ####[facility] Oxy[address]wqa[address]62 [address] Sandra Globulin (S) [Mass/Vol] 4.0 g/dL Normal [facility] Comment on above: Performed By: #### H STROPN, CMP ####[facility] Kelyx[address]rxu[address] Sandra Glucose [Mass/Vol] 128 mg/dL Critically high 74-106 [facility] Comment on above: Performed By: #### H STROFAUSTINO, CMP ####[facility] [address] [place] [address] Sandra Potassium [Moles/Vol] 3.5 mmol/L Normal 3.4-5.0 [facility] Comment on above: Performed By: #### H STROPN, CMP ####[facility] [address] [place] [id number] Sandra Protein [Mass/Vol] 7.2 g/dL Normal 6.1-8.2 [facility] Comment on above: Performed By: #### H STROPN, CMP ####[facility] [address] [place] [address]Gerken Sandra Sodium [Moles/Vol] 136 mmol/L Critically low 137-[address] [facility] Comment on above: Performed By: #### H WALDEMARPN, CMP ####[facility] [id number] Sandra Urea nitrogen [Mass/Vol] 10.0 mg/dL Normal 7.0-17.0 [facility] Comment on above: Performed By: #### H BALWINDER, CMP ####[facility] C[address] Sandra Urea nitrogen/Creatinine [Mass ratio] 12.5 mg/mg Normal [facility] Comment on above: Performed By: #### H STROFAUSTINO, CMP ####[facility] [address] [place] [address] Sandra TROPONIN, HIGH SENSITIVITYon 08-20-2020 HSTROP <4.0 Normal 4.0-35.5 [facility] Comment on above: Result Comment: CUT- OFF POINTS HAVE BEEN ESTABLISHED BASED ON THE FOURTH UNIVERSAL DEFINITIONS OF MYOCARDIAL INFARCTION. THE UPPER REFERENCE LIMIT (URL) OF TROPONIN, DEFINED THE 99TH PERCENTILE OF cTnI DISTRIBUTION IN A REFERENCE POPULATION, HAS BEEN CONFIRMED THE DECISION THRESHOLD FOR MD DIAGNOSIS. Performed By: #### H STROFAUSTINO, CMP ####[facility] [address] [place], [place] [address]Hlbxqf Sandra XR CHEST 1 Von 08-20-2020 XR CHEST 1 V EXAM: XR CHEST 1 V HISTORY: COUGH COMPARISON: None. TECHNIQUE: Single view FINDINGS: LUNGS: Peribronchial infiltrates are seen in the upper and lower lungs. Lung volumes are shallow. VASCULATURE: No increased pulmonary vasculature. PLEURA: No pneumothorax, effusion, or pleural thickening. CARDIAC: Mild cardiomegaly MEDIASTINUM: No visible mass or adenopathy. BONES: No fracture or visible bone lesion. OTHER: Negative. IMPRESSION: Multifocal peribronchial infiltrates in the upper and lower lungs suggesting multifocal pneumonitis Electronically authenticated by: SALOMÓN NELSON Date: 2020-08-20 08:04 Normal [facility] Covid-19 PCR (CVDTB)on EUA Statement SEE BELOW Normal [facility] Comment on above: Result Comment: This test is not yet approved or cleared by the [place] FDA. When there are no FDA-approved or cleared tests available, and other criteria are met, FDA can make tests available under an emergency access mechanism called an Emergency Use Authorization (EUA). The EUA for this test is supported by the [place] of Health and Human Service?s (HHS?s) declaration that circumstances exist to justify the emergency use of in vitro diagnostics for the detection and/or diagnosis of the virus that causes COVID-19. This EUA will remain in effect (meaning this test can be used) for the duration of the COVID-19 declaration justifying emergency of IVDs, unless it is terminated or revoked by FDA (after which the test may no longer be used). When diagnostic testing is negative, the possibility of a false negative should be considered in the context of a patients recent exposures and the presence of clinical signs and symptoms consistent with SARS-CoV-2. Performed By: #### C [facility] #### [facility] [address] [place] [address] Beverly Flores SARS-CoV-2 (COVID-19) RNA DARBY+probe Ql (Unsp spec) Detected Abnormal NOT DETECTED [facility] Comment on above: Result Comment: This test is not yet approved or cleared by the [place] FDA. When there are no FDA-approved or cleared tests available, and other criteria are met, FDA can make tests available under an emergency access mechanism called an Emergency Use Authorization (EUA). The EUA for this test is supported by the Commercial Under[employer] of Health and Human Service's (HHS's) declaration that circumstances exist to justify the emergency use of in vitro diagnostics for the detection and/or diagnosis of the virus that causes COVID-19. This EUA will remain in effect (meaning this test can be used) for the duration of the COVID-19 declaration justifying emergency of IVDs, unless it is terminated or revoked by FDA (after which the test may no longer be used). Performed By: #### C VDTB #### [facility] [address] [place], [place] [address] Beverly Sandra CBC AUTO DIFFon 08-08-2020 BASO # 0.0 103/ul Normal 0.0-0.1 [facility] Comment on above: Performed By: #### C BC ####[facility] [address] [place], [place] [address]Ukpdrq Sandra Basophils/100 WBC (Bld) 0.5 % Normal 0.2-2.0 [facility] Comment on above: Performed By: #### C BC ####[facility] [address] [place], [place] [address]Bajdmp Sandra EO # 0.0 103/ul Normal 0.0-0.7 [facility] Comment on above: Performed By: #### C BC ####[facility] [address] [place], [place] [address]Uwdkok Sandra Eosinophils/100 WBC (Bld) 1.1 % Normal 0.9-7.0 [facility] Comment on above: Performed By: #### C BC ####[facility] [address] [place], [place] [address]Cjkoua Sandra Erythrocyte distribution width (RBC) [Ratio] 13.8 % Normal 11.0-15.0 [facility] Comment on above: Performed By: #### C BC ####[facility] [address] [place], [place] [address]Zausuz Sandra Hematocrit (Bld) [Volume fraction] 38.4 % Normal 36.0-48.0 [facility] Comment on above: Performed By: #### C BC ####[facility] [address] [place], [place] [address]Mbzfeo Sandra Hemoglobin (Bld) [Mass/Vol] 12.2 g/dL Normal 12.0-16.0 [facility] Comment on above: Performed By: #### C BC ####[facility] [address] [place] [id number] Sandra IG # 0.01 10e3/ul Normal 0.00-0.03 [facility] Comment on above: Performed By: #### C BC ####[facility] [address] [place] [address]Gerken Sandra IG % 0.3 % Normal 0.0-0.5 [facility] Comment on above: Performed By: #### C BC ####[facility] [address]aro[address] Sandra LYMPH # 0.9 103/ul Critically low 1.2-3.8 [facility] Comment on above: Performed By: #### C BC ####[facility] [address] [place] [address] Sandra Lymphocytes/100 WBC (Bld) 23.0 % Normal 20.5-60.0 [facility] Comment on above: Performed By: #### C BC ####[facility] [address] [place] [address] Sandra MANUAL DIFF REQ NO Normal [facility] Comment on above: Performed By: #### C BC ####[facility] [address] [place] [address] Sandra MCH (RBC) [Entitic mass] 28.8 pg Normal 26.7-34.0 [facility] Comment on above: Performed By: #### C BC ####[facility] [address] [place] [address] Sandra MCHC (RBC) [Mass/Vol] 31.8 g/dL Normal 29.9-35.2 [facility] Comment on above: Performed By: #### C BC ####[facility] Qhibbxoalk[address]39 [address] Sandra MCV (RBC) [Entitic vol] 90.8 fL Normal 81.0-99.0 [facility] Comment on above: Performed By: #### C BC ####[facility] [address] [place], [place] [address]Vqjryc Sandra MONO # 0.3 103/ul Normal 0.3-0.8 [facility] Comment on above: Performed By: #### C BC ####[facility] [address] [place] [id number] Sandra Monocytes/100 WBC (Bld) 8.7 % Normal 1.7-12.0 [facility] Comment on above: Performed By: #### C BC ####[facility] [address] [place], [place] [address]Vxqibl Sandra NEUT # 2.5 103/ul Normal 1.4-6.5 [facility] Comment on above: Performed By: #### C BC ####[facility] [address] [place] [id number] Sandra Neutrophils/100 WBC (Bld) 66.4 % Normal 43.0-75.0 [facility] Comment on above: Performed By: #### C BC ####[facility] [address] [place], [place] [address]Gerken Sandra Platelet mean volume (Bld) [Entitic vol] 8.6 fL Critically low 9.5-13.5 [facility] Comment on above: Performed By: #### C BC ####[facility] [address] [place], [place] [address]Gerken Sandra PLT 179 103/ul Normal 150-450 [facility] Comment on above: Performed By: #### C BC ####[facility] [address] [place] [id number] Sandra RBC 4.23 106/ul Normal 4.20-5.40 [facility] Comment on above: Performed By: #### C BC ####[facility] [address] [place], [place] [address]Aegsfa Sandra WBC 3.8 103/ul Critically low 4.0-11.0 [facility] Comment on above: Performed By: #### C BC ####[facility] [address] [place], [place] [address]Gerabner Flores PROF 14(COMP METB)on 020 Albumin [Mass/Vol] 3.6 g/dL Normal 3.5-5.0 [facility] Comment on above: Performed By: #### C MP #### [facility] [address] [place] [id number] Beverly Sandra Albumin/Globulin [Mass ratio] 1.1 {ratio} Normal [facility] Comment on above: Performed By: #### C MP #### [facility] [address] [place], [place] [address] Beverly Sandra ALT [Catalytic activity/Vol] 23 U/L Normal 9-52 [facility] Comment on above: Performed By: #### C MP #### [facility] [address] [place] [address] Beverly Sandra Anion gap [Moles/Vol] 10.5 mmol/L Normal [facility] Comment on above: Performed By: #### C MP #### [facility] [address] [place] [address] Beverly Sandra AST [Catalytic activity/Vol] 10 U/L Critically low 14-36 [facility] Comment on above: Performed By: #### C MP #### [facility] [address] [place] [address] Beverly Sandra Bilirubin [Mass/Vol] 1.2 mg/dL Normal 0.2-1.3 [facility] Comment on above: Performed By: #### C MP #### [facility] [address] [place] [address] Beverly Sandra Calcium [Mass/Vol] 8.6 mg/dL Normal 8.4-10.[address] [facility] Comment on above: Performed By: #### C MP #### [facility] [address] [place], [place] [address] Beverly Sandra Chloride [Moles/Vol] 103 mmol/L Normal 98-107 [facility] Comment on above: Performed By: #### C MP #### [facility] [address] [place] [address] Beverly Sandra CO2 [Moles/Vol] 29.0 mmol/L Normal 22.0-30.0 [facility] Comment on above: Performed By: #### C MP #### [facility] [address] [place] [id number] Beverly Sandra Creatinine [Mass/Vol] 0.78 mg/dL Normal 0.52-1.04 [facility] Comment on above: Performed By: #### C MP #### [facility] [address] [place] [id number] Beverly Sandra EGFR-AF SENEGALESE >60 Normal >=60 [facility] Comment on above: Performed By: #### C MP #### [facility] [address] [place], [place] [address] Beverly Sandra EGFR-NON AF SENEGALESE >60 Normal >=60 [facility] Comment on above: Performed By: #### C MP #### [facility] [address] [place] [address] Beverly Sandra Globulin (S) [Mass/Vol] 3.4 g/dL Normal [facility] Comment on above: Performed By: #### C MP #### [facility] [address] [place] [address] Beverly Sandra Glucose [Mass/Vol] 114 mg/dL Critically high 74-106 [facility] Comment on above: Performed By: #### C MP #### [facility] [address] [place] [address] Beverly Sandra Potassium [Moles/Vol] 3.5 mmol/L Normal 3.4-5.0 [facility] Comment on above: Performed By: #### C MP #### [facility] [address] [place], [place] [address] Beverly Sandra Protein [Mass/Vol] 7.0 g/dL Normal 6.1-8.[address] [facility] Comment on above: Performed By: #### C MP #### [facility] [address] [place], [place] [address] Beverly Sandra Sodium [Moles/Vol] 139 mmol/L Normal 137-[address] [facility] Comment on above: Performed By: #### C MP #### [facility] [address] [place], [place] [address] Beverly Flores Urea nitrogen [Mass/Vol] 9.0 mg/dL Normal 7.0-17.0 [facility] Comment on above: Performed By: #### C MP #### [facility] [address] [place], [place] [address] Beverly Flores Urea nitrogen/Creatinine [Mass ratio] 11.5 mg/mg Normal [facility] Comment on above: Performed By: #### C MP #### [facility] [address] [place], [place] [address] Beverly Flores PROTIMEon 08-08-2020 INR Coag (PPP) [Relative time] {INR} Normal [facility] Comment on above: Performed By: #### P TT, PT ####[facility] [address] [place] [address]Gerken Sandra INR GUIDELINES SEE BELOW Normal [facility] Comment on above: Result Comment: MOISES RED INR: 2.0 - 3.0 CONDITIONS NOT LISTED BELOW 2.5 - 3.5 FOR PROSTHETIC HEART VALVE REPLACEMENT 2.5 - 3.5 RECURRENT THROMBOSIS Performed By: #### P TT, PT ####[facility] [address] [place] [address]Beverly Flores PT Coag (PPP) [Time] 10.0 s Normal 9.0-11.6 [facility] Comment on above: Performed By: #### P TT, PT ####[facility] [address] [place] [address]Beverly Flores PTTon 08-08-2020 aPTT Coag (Bld) [Time] 26.4 s Normal 22.3-36.2 [facility] Comment on above: Performed By: #### P TT, PT ####[facility] [address] [place], [place] [address]Ger[address] Sandra US LEXY DOP LEG RTon 08-08-20 20 US LEXY DOP LEG RT EXAMINATION: US LEXY DOP LEG RT HISTORY: Deep venous thrombosis of lower extremity (disorder) COMPARISON: No relevant comparison available. TECHNIQUE: Grayscale, color and Doppler ultrasound FINDINGS: Region: Right leg Thrombus: No thrombus in the deep vein system. Echogenic thrombus identified in superficial veins of the right anterior thigh corresponding to the patient's pain Compressibility: Noncompressibility corresponding to superficial thrombus Flow: Absent and markedly decreased flow corresponding to thrombus IMPRESSION: No deep vein thrombus Thrombus in a superficial varicose vein anterior mid thigh corresponding to the patient's pain *Exam performed in accordance with [facility] practice guidelines- Peripheral venous ultrasound, November 04, 2009. Electronically authenticated by: HALEY PICKENS Date: 2020-08-08 14:56 Normal [facility] Vital Signs Date Time Vital Sign Value Performing Clinician Facility 11-05-2024 10:48-0400 Body height 162.56 cm Haley Valdivia DO Work Phone: [facility] 11-05-2024 10:48-0400 Body mass index (BMI) [Ratio] 52.7 kg/m2 Haley Valdivia DO Work Phone: [facility] 11-05-2024 10:48-0400 Body temperature 97.4 [degF] Haley Valdivia DO Work Phone: [facility] 11-05-2024 10:48-0400 Body weight 139.25 kg Haley Valdivia DO Work Phone: [facility] 11-05-2024 10:48-0400 Diastolic blood pressure 78 mm[Hg] Haley Valdivia DO Work Phone: [facility] 11-05-2024 10:48-0400 Heart rate 85 /min Haley Valdivia DO Work Phone: [facility] 11-05-2024 10:48-0400 SaO2% (BldA) [Mass fraction] 99 % Haley Valdivia DO Work Phone: [facility] 11-05-2024 10:48-0400 Systolic blood pressure 118 mm[Hg] Haley Valdivia DO Work Phone: [facility] 09-10-2024 09:13-0500 Body height 162.6 cm Radha Morgan MD Work Phone: [facility] 09-10-2024 09:13-0500 Body mass index (BMI) [Ratio] 53.04 kg/m2 Radha Morgan MD Work Phone: [facility] 09-10-2024 09:13-0500 Body weight 140.16 kg Radha Morgan MD Work Phone: [facility] 09-10-2024 09:13-0500 Diastolic blood pressure 74 mm[Hg] Radha Morgan MD Work Phone: [facility] 09-10-2024 09:13-0500 Systolic blood pressure 118 mm[Hg] Radha Morgan MD Work Phone: [facility] 08-29-2024 12:00-0500 Body temperature 98.4 [degF] Haley Valdivia DO Work Phone: [facility] 08-29-2024 12:00-0500 Diastolic blood pressure 72 mm[Hg] Haley Valdivia DO Work Phone: [facility] 08-29-2024 12:00-0500 Heart rate 76 /min Haley Valdivia DO Work Phone: [facility] 08-29-2024 12:00-0500 Respiratory rate 18 /min Haley Valdivia DO Work Phone: [facility] 08-29-2024 12:00-0500 SaO2% (BldA) [Mass fraction] 98 % Haley Valdivia DO Work Phone: [facility] 08-29-2024 12:00-0500 Systolic blood pressure 125 mm[Hg] Haley Valdivia DO Work Phone: [facility] 08-29-2024 05:04-0500 Body weight 148.1 kg Haley Valdivia DO Work Phone: [facility] 08-28-2024 09:26-0500 Inhaled oxygen flow rate 2 L/min Haley Valdivia DO Work Phone: [facility] 08-27-2024 07:30-0500 Body height 162.56 cm Haley Valdivia DO Work Phone: [facility] 01-28-2024 09:57-0400 Body height 162.56 cm [facility] 01-28-2024 09:57-0400 Body mass index (BMI) [Ratio] 53.8 kg/m2 [facility] 01-28-2024 09:57-0400 Body temperature 97 [degF] [facility] 01-28-2024 09:57-0400 Body weight 142.42 kg [facility] 01-28-2024 09:57-0400 Diastolic blood pressure 84 mm[Hg] [facility] 01-28-2024 09:57-0400 Heart rate 70 /min [facility] 01-28-2024 09:57-0400 SaO2% (BldA) [Mass fraction] 97 % [facility] 01-28-2024 09:57-0400 Systolic blood pressure 128 mm[Hg] [facility] 03-27-2023 12:10-0400 Body height 162.56 cm Haley Valdivia Other [facility] [employer] Other 03-27-2023 12:10-0400 Body mass index (BMI) [Ratio] 54.75 kg/m2 Hlaey Valdivia Other [facility] [employer] [facility] Other 03-27-2023 12:10-0400 Body temperature 97.5 [degF] Haley Valdivia Other [facility] [employer] [facility] Other 03-27-2023 12:10-0400 Body weight 144.7 kg Haley Valdivia Other [facility] Other 03-27-2023 12:10-0400 Diastolic blood pressure 86 mm[Hg] Haley Valdivia Other [facility] Other 03-27-2023 12:10-0400 Respiratory rate 18 /min Haley Valdivia Other [facility] Other 03-27-2023 12:10-0400 SaO2% (BldA) [Mass fraction] 98 % Haley Valdivia Other [facility] Other 03-27-2023 12:10-0400 Systolic blood pressure 110 mm[Hg] Haley Valdivia Other [facility] Other 10-15-2022 09:30-0500 Body height 162.56 cm Meme Fernandez Other [facility] Other 10-15-2022 09:30-0500 Body mass index (BMI) [Ratio] 52.69 kg/m2 Meme Gonsalesmond Other [facility] Other 10-15-2022 09:30-0500 Body temperature 97.1 [degF] Meme Fernandez Other [facility] Other 10-15-2022 09:30-0500 Body weight 139.26 kg Meme Gonsalesmond Other [facility] Other 10-15-2022 09:30-0500 Respiratory rate 18 /min Meme Gonsalesmond Other [facility] Other 10-15-2022 09:30-0500 SaO2% (BldA) [Mass fraction] 98 % Meme Gonsalesmond Other [facility] Other 06-11-2022 11:30-0400 Body height 162.56 cm Haley Valdivia Other [facility] Other 06-11-2022 11:30-0400 Body mass index (BMI) [Ratio] 54.41 kg/m2 Haley Valdivia Other [facility] Other 06-11-2022 11:30-0400 Body temperature 97.6 [degF] Haley Valdivia Other [facility] Other 06-11-2022 11:30-0400 Body weight 143.79 kg Haley Valdivia Other [facility] Other 06-11-2022 11:30-0400 Diastolic blood pressure 82 mm[Hg] Haley Valdivia Other [facility] Other 06-11-2022 11:30-0400 Respiratory rate 20 /min Haley Valdivia Other [facility] Other 06-11-2022 11:30-0400 SaO2% (BldA) [Mass fraction] 98 % Haley Valdivia Other [facility] Other 06-11-2022 11:30-0400 Systolic blood pressure 128 mm[Hg] Haley Valdivia Other [facility] Other 03-07-2022 11:00-0400 Body height 162.56 cm Deanna Mckee Other [facility] Other 03-07-2022 11:00-0400 Body mass index (BMI) [Ratio] 52.69 kg/m2 Deanna Mckee Other [facility] Other 03-07-2022 11:00-0400 Body temperature 96.3 [degF] Deanna Mckee Other [facility] Other 03-07-2022 11:00-0400 Body weight 139.26 kg Deanna Mckee Other [facility] Other 03-07-2022 11:00-0400 Respiratory rate 18 /min Deanna Mckee Other [facility] Other 03-07-2022 11:00-0400 SaO2% (BldA) [Mass fraction] 97 % Deanna Mckee Other [facility] Other 11-02-2021 10:50-0400 Body height 161.29 cm Haley Valdivia Other [facility] Other 11-02-2021 10:50-0400 Body mass index (BMI) [Ratio] 53.18 kg/m2 Haley Valdivia Other [facility] Other 11-02-2021 10:50-0400 Body temperature 96.8 [degF] Haley Valdivia Other [facility] Other 11-02-2021 10:50-0400 Body weight 138.35 kg Haley Valdivia Other [facility] Other 11-02-2021 10:50-0400 Diastolic blood pressure 84 mm[Hg] Haley Valdivia Other [facility] Other 11-02-2021 10:50-0400 Respiratory rate 18 /min Haley Valdivia Other [facility] Other 11-02-2021 10:50-0400 SaO2% (BldA) [Mass fraction] 98 % Haley Valdivia Other [facility] Other 11-02-2021 10:50-0400 Systolic blood pressure 130 mm[Hg] Haley Valdivia Other [facility] Other 07-27-2021 11:30-0500 Body height 161.29 cm Haley Valdivia Other [facility] Other 07-27-2021 11:30-0500 Body mass index (BMI) [Ratio] 55.44 kg/m2 Haley Valdivia Other [facility] Other 07-27-2021 11:30-0500 Body temperature 98 [degF] Haley Valdivia Other [facility] Other 07-27-2021 11:30-0500 Body weight 144.24 kg Haley Valdivia Other [facility] Other 07-27-2021 11:30-0500 Diastolic blood pressure 84 mm[Hg] Haley Valdivia Other [facility] Other 07-27-2021 11:30-0500 Respiratory rate 18 /min Haley Valdivia Other [facility] Other 07-27-2021 11:30-0500 SaO2% (BldA) [Mass fraction] 98 % Haley Valdivia Other [facility] Other 07-27-2021 11:30-0500 Systolic blood pressure 118 mm[Hg] Haley Valdivia Other [facility] Other 05-02-2021 10:10-0400 Body height 161.29 cm Haley Valdivia Other [facility] Other 05-02-2021 10:10-0400 Body mass index (BMI) [Ratio] 54.57 kg/m2 Haley Valdivia Other [facility] Other 05-02-2021 10:10-0400 Body temperature 97.5 [degF] Haley Valdivia Other [facility] Other 05-02-2021 10:10-0400 Body weight 141.98 kg Haley Valdivia Other [facility] Other 05-02-2021 10:10-0400 Diastolic blood pressure 86 mm[Hg] Haley Valdivia Other [facility] Other 05-02-2021 10:10-0400 Respiratory rate 18 /min Haley Valdivia Other [facility] Other 05-02-2021 10:10-0400 SaO2% (BldA) [Mass fraction] 98 % Haley Valdivia Other [facility] Other 05-02-2021 10:10-0400 Systolic blood pressure 120 mm[Hg] Haley Valdivia Other [facility] Other Encounters Encounter Date Encounter Type Care Provider Facility Start: 11-05-2024 End: 11-05-2024 ambulatory Haley Valdivia DO Work Phone: [facility] Work Phone: Start: 11-05-2024 End: 11-05-2024 Patient encounter procedure Haley Valdivia Work Phone: [facility] [place] Work Phone: Start: 09-10-2024 End: 09-10-2024 Telephone encounter Radha Padilla MD Work Phone: [facility] Start: 09-10-2024 End: 09-10-2024 Postop follow up visit related to original px Radha Padilla MD Work Phone: [facility] Comment on above: Acute appendicitis w ith localized peritonitis, without perforation, abscess, or gangrene (Primary Dx) Start: 09-10-2024 End: 09-10-2024 ambulatory RADHA PADILLA V Not Available Start: 08-27-2024 End: 08-29-2024 Evaluation and management of inpatient Haley Valdivia DO Work Phone: [facility] Work Phone: Start: 08-27-2024 Non-patient / Non-visit Haley Valdivia DO Work Phone: [facility] Work Phone: Start: 07-05-2024 End: 07-05-2024 Patient encounter procedure Haley Valdivia DO Work Phone: [facility] [place] Work Phone: Start: 02-24-2024 End: 02-24-2024 ambulatory [facility] Start: 02-03-2024 End: 02-03-2024 ambulatory [facility] Start: 02-03-2024 End: 02-03-2024 ambulatory [facility] Start: 01-28-2024 Patient encounter status [facility] Start: 01-28-2024 End: 01-28-2024 ambulatory [facility] Work Phone: Start: 01-28-2024 End: 01-28-2024 Encounter for general adult medical examination without abnormal findings [facility] Start: 01-28-2024 End: 01-28-2024 [facility] [facility] [place] Work Phone: Start: 01-19-2024 End: 01-19-2024 ambulatory [facility] Start: 01-12-2024 Non-patient / Non-visit [facility] [place] Work Phone: Start: 01-08-2024 End: 01-08-2024 ambulatory [facility] Start: 11-03-2023 Non-patient / Non-visit [facility] Physician [facility] Work Phone: Start: 09-16-2023 End: 09-16-2023 ambulatory Haley Valdivia Other [facility] Other Start: 09-16-2023 Telephone encounter Haley Valdivia [facility] [place] Start: 06-30-2023 End: 06-30-2023 ambulatory Haley Valdivia Other [facility] Other Start: 06-30-2023 Telephone encounter Haley Valdivia [facility] [place] Start: 06-27-2023 End: 06-27-2023 ambulatory Haley Valdivia Other [facility] Other Start: 06-27-2023 Telephone encounter Haley Valdivia [facility] [place] Start: 04-21-2023 End: 04-21-2023 ambulatory Haley Valdivia Other [facility] Other Start: 04-21-2023 Telephone encounter Haley Valdivia [facility] [place] Start: 03-27-2023 End: 03-27-2023 ambulatory Haley Valdivia Other [facility] Other Start: 03-27-2023 Encounter for genera l adult medical examination without abnormal findings Haley Valdivia [facility] [place] Start: 03-27-2023 Periodic preventive med est patient 40-64yrs Haley Valdivia [facility] [place] Start: 03-20-2023 End: 03-20-2023 ambulatory Haley Valdivia Other [facility] Other Start: 03-20-2023 Telephone encounter Haley Valdivia [facility] [place] Start: 01-15-2023 End: 01-15-2023 ambulatory Haley Valdivia Other [facility] Other Start: 01-15-2023 Telephone encounter Haley Valdivia [facility] [place] Start: 11-12-2022 End: 11-12-2022 ambulatory Haley Valdivia Other [facility] Other Start: 11-12-2022 Telephone encounter Haley Valdivia [facility] [place] Start: 10-16-2022 End: 10-16-2022 ambulatory Haley Valdivia Other [facility] Other Start: 10-16-2022 Telephone encounter Haley Valdivia [facility] Start: 10-15-2022 End: 10-15-2022 ambulatory Meme Rebecca Other [facility] Other Start: 10-15-2022 Office outpatient vi sit 15 minutes Meme Rebecca [facility] Start: 06-11-2022 End: 06-11-2022 ambulatory Haley Valdivia Other [facility] Other Start: 06-11-2022 Encounter for genera l adult medical examination without abnormal findings Haley Valdivia [facility] [place] Start: 06-11-2022 Periodic preventive med est patient 40-64yrs Haley Valdivia [facility] [place] Start: 03-07-2022 End: 03-07-2022 ambulatory Deanna Mckee Other [facility] Other Start: 03-07-2022 Office outpatient vi sit 25 minutes Deanna Mckee [facility] Start: 02-12-2022 End: 02-12-2022 ambulatory Haley Valdivia Other [facility] Other Start: 02-12-2022 Telephone encounter Haley Valdivia [facility] [place] Start: 12-27-2021 End: 12-27-2021 ambulatory Haley Valdivia Other [facility] Other Start: 12-27-2021 Telephone encounter Haley Valdivia [facility] [place] Start: 11-28-2021 End: 11-28-2021 ambulatory Haley Valdivia Other [facility] Other Start: 11-28-2021 Telephone encounter Haley Valdivia [facility] [place] Start: 11-02-2021 End: 11-02-2021 ambulatory Haley Valdivia Other [facility] Other Start: 11-02-2021 Office outpatient vi sit 15 minutes Haley Valdivia [facility] [place] Start: 10-19-2021 End: 10-19-2021 ambulatory Haley Valdivia Other [facility] Other Start: 10-19-2021 Telephone encounter Haley Valdivia [facility] [place] Start: 09-03-2021 End: 09-03-2021 ambulatory Haley Valdivia Other [facility] Other Start: 09-03-2021 Telephone encounter Haley Valdivia [facility] [place] Start: 08-02-2021 End: 08-02-2021 ambulatory Haley Valdivia Other [facility] Other Start: 08-02-2021 Telephone encounter Haley Valdivia [facility] [place] Start: 07-27-2021 End: 07-27-2021 ambulatory Haley Vadlivia Other [facility] Other Start: 07-27-2021 Office outpatient vi sit 15 minutes Haley Valdivia [facility] [place] Start: 07-02-2021 End: 07-02-2021 ambulatory Haley Valdivia Other [facility] Other Start: 07-02-2021 Telephone encounter Haley Valdivia [facility] [place] Start: 06-27-2021 End: 06-27-2021 ambulatory Haley Valdivia Other [facility] Other Start: 06-27-2021 Telephone encounter Haley Valdivia [facility] [place] Start: 05-02-2021 Encounter for genera l adult medical examination without abnormal findings Haley Valdivia [facility] [place] Start: 05-02-2021 Office outpatient vi sit 25 minutes Haley Valdivia [facility] [place] Start: 12-25-2020 End: 12-25-[address] HALEY VALDIVIA Facility:[facility] Start: 10-11-[address] HALEY VALDIVIA Facilit y:[facility]1 Start: 10-07-2020 End: 10-08-[address] HALEY VALDIVIA Facility:[facility] Start: 08-20-2020 End: 08-22-2020 Evaluation and management of inpatient DR ZIYAD ROJAS Facility:[facility] Start: 08-16-2020 End: 08-16-[address] HALEY VALDIVIA Facility:[facility] Start: 08-08-2020 End: 08-08-[address] HALEY VALDIVIA Facility:[facility] Start: 07-25-2020 End: 07-25-[address] HALEY VALDIVIA Facility:[facility] Procedures Date Procedure Procedure Detail Performing Clinician Start: 08-27-2024 Laparoscopic appendectomy Haley Valdivia DO Work Phone: Start: 02-24-2024 Follow-up visit Follow-up RUSS MCNAMARA Plan of Treatment Date Care Activity Detail Author Start: 08-29-2024 [facility] Start: 08-29-2024 [facility] Start: 08-27-2024 Resection of Appendix, Percutaneous Endoscopic Approach Resection of Appendix, Percutaneous Endoscopic Approach [facility] Start: 08-27-2024 Hospital admission [facility] Start: 08-27-2024 Referral to general surgeon [facility] Start: 04-11-2024 Influenza vaccination Influenza Vaccine (#1) [facility] Start: 2014 Screening for malignant neoplasm of breast Mammogram [facility] Start: 2004 Screening for malignant neoplasm of cervix [facility] Start: 1995 Screening for malignant neoplasm of cervix Pap Smear [facility] Start: 1974 Screening for malignant neoplasm of colon [facility] Comprehensive metabo lic 1999 panel - Serum or Plasma [facility] Comprehensive metabo lic 2000 panel - Serum or Plasma [facility] Glucose measurement estimated from glycated hemoglobin [facility] Hemoglobin A1c/Hemoglobin.total in Blood [facility] MG Breast - bilatera l Screening [facility] Patient Education Know your Meds [facility] Work Phone: Patient referral [facility] Work Phone: [facility] Immunizations Immunization Date Immunization Notes Care Provider Eva sarah 12-27-2020 COVID-19 Pfizer Haley Valdivia Other [facility] 12-06-2020 COVID-19 Vaccine Pfizer - Documentation Purposes Only Haley Valdivia Other [facility] 11-30-2015 Depo-Medrol 80 mg Haley [place] in Other [facility] Other NEGATED: Highlighted row has not occurred!03-27-2023 influenza, seasonal, injectable Patient Objection Haley Valdivia Other [facility] Other NEGATED: Highlighted row has not occurred!07-27-2021 influenza, seasonal, injectable Patient Objection Haley Valdivia Other [facility] Other Payers Date Payer Category Payer Private Health Insurance [employer] [id number] 1974 Unknown [id number]. 593 1974 Unknown [id number]. 593 1974 Unknown [id number] 2.16.840.1.745481.3.579.2. 593 1974 Unknown [id number] 2.16.840.1.409609.3.579.2. 593 1974 Unknown [id number] 2.16.840.1.569109.3.579.2. 593 1974 Unknown [id number] 2.16.840.1.120025.3.579.2. 593 1974 Unknown [id number] 2.16.840.1.864713.3.579.2. 593 1974 Unknown [id number] 2.16.840.1.172991.3.579.2. 1286 1974 Unknown [id number] 2.16.840.1.930595.3.579.2. 1286 1974 Unknown [id number] 2.16.840.1.783320.3.579.2. 1286 1974 Unknown [id number] 2.16.840.1.998948.3.579.2. 1286 1974 Unknown [id number] 2.16.840.1.861031.3.579.2. 1286 1974 Unknown [id number] 2.16.840.1.882736.3.579.2. 1259 1959 Self-pay 1960 Unknown [id number] Unknown [id number] [id number]. 531 Social History Date Type Detail Facility Unknown if ever smoked [facility] Rank By Search Other Start: 09-10-2024 Sex Assigned At N [facility] Rank By Search Other Start: 01-12-2024 End: 11-05-2024 Tobacco smoking status NHIS Never smoked tobacco (finding) [facility] Start: 1975 Sex Assigned At Female F [facility] Start: 08-29-2024 End: 11-05-2024 Sex Female (finding) [facility] Start: 09-10-2024 Tobacco use and exposure Smokeless tobacco non-user [facility] Start: 09-10-2024 Alcoholic beverage intake Current drinker of alcohol (finding) [facility] Start: 09-10-2024 History of Social function [facility] Start: 1975 Sex assigned at Not on file [facility] Medical Equipment Procedure Code Equipment Code Equipment Origin al Text Equipment Identifier Dates [facility] Start: 06-27-2023 Goals Date Patient Goal Desired Activity /State Functional Status Date Assessment Result Facility 08-29-2024 Functional status Patient at Baseline [facility] Work Phone: Mental Status Date Assessment Result Facility 08-29-2024 Cognitive function Cognitive Sta tus Patient at Baseline [facility] Work Phone: Clinical Notes 03-11-2011 to 09-10-2024 Telephone Encounter - Anne Marie Dias - 09/10/2024 9:26 AM ESTTelephone Encounter - Anne Marie Dias - 09/10/2024 9:26 AM Renan Morgan MD - 09/10/2024 9:15 AM EST Note Date & Type Note Facility 09-10-2024 Telephone encounter Note Form atting of this note might be different from the original. Return to work [facility] 09-10-2024 Miscellaneous Notes Formattin g of this note might be different from the original. Return to work documented in this encounter [facility] 09-10-2024 History of Presen t illness Narrative Images from the original note were not included. The patient is a follow-up from the hospital. She is about 2 weeks status post a laparoscopic appendectomy. Pathology revealed acute appendicitis. The patient is eating but still has a little bit of a decreased appetite. She is not taking the pain medication. On examination, she is awake alert and in no acute distress. Abdomen is soft. Laparoscopic incisions clean and dry without evidence of infection. 1. Acute appendicitis with localized peritonitis, without perforation, abscess, or gangrene Patient can resume normal activities. She is given a note to return to work in 4 days. She will be discharged from the office continue to follow with her primary care physician. documented in this encounter [facility] 08-29-2024 Progress note Note Date/Time August 29, 2024 10:27am [facility] [address] [place] [address] General Surgery Progress Note Signed Patient: Deidre Clemons MR#: [id number] : 1975 Acct:[id number] Age/Sex: 49 / F Adm Date: 5 Loc: Room: 2R4865-7 Type: ADM IN Attending Dr: Marin Barron MD Copies to: ~ Date of Service: 08/29/2024 Subjective Subjective Patient reports: no new complaints and feels better HPI: Patient is doing well. No abdominal complaints she is tolerating a diet and would like to go home today. Allergies & Medications Medications and Allergies Allergies No Known Allergies Allergy (Verified 07/05/24 09:37) Home Medications Biotin PO 01/28/24 [History Confirmed 07/05/24] Co q 10 PO 01/28/24 [History Confirmed 07/05/24] Magnesium PO 01/28/24 [History Confirmed 07/05/24] berberine PO 01/28/24 [History Confirmed 07/05/24] cholecalciferol (vitamin D3) 50 mcg (2,000 unit) tablet 50 mcg PO DAILY 01/28/24[History Confirmed 07/05/24] fluticasone propionate 0.05 % topical cream applic topical 01/28/24 [History Confirmed 01/28/24] levothyroxine 50 mcg tablet 50 mcg PO DAILY.AC.BKFAST 01/28/24 [History Confirmed 07/05/24] losartan 50 mg tablet 50 mg PO BID 01/28/24 [History Confirmed 07/05/24] hydrochlorothiazide 12.5 mg tablet 12.5 mg PO BID #180 tabs 03/03/24 [Rx Confirmed 07/05/24] citalopram 10 mg tablet 10 mg PO DAILY 07/05/24 [History Confirmed 07/05/24] clonazepam 0.5 mg tablet (Klonopin) 0.5 mg PO DAILY PRN anxiety 7 days #14 tabs 07/05/24 [Rx Confirmed 07/05/24] labetalol 300 mg tablet 300 mg PO .COMPLEX 07/05/24 [History Confirmed 07/05/24] cephalexin 500 mg capsule 500 mg PO QID 4 days #16 caps 08/29/24 [Rx] Active Medications Acetaminophen (Acetaminophen 325 Mg Tablet) 650 mg PO Q6HR PRN PRN Reason: Pain Scale 1 - 3 or fever Stop: 08/27/25 07:02 Ceftriaxone Sodium (Ceftriaxone 2 Gm/20 Ml Syringe) 2 gm IV-PUSH Q24H [facility] Last Admin: 08/29/24 04:55 Dose: 2 gm Citalopram Hydrobromide (Citalopram 10 Mg Tablet) 10 mg PO DAILY [facility] Stop: 08/27/25 08:59 Last Admin: 08/29/24 09:02 Dose: 10 mg Enoxaparin Sodium (Enoxaparin 40 Mg/0.4 Ml Syringe) 40 mg SUBCUT DAILY@10 [facility] Stop: 08/27/25 09:59 Last Admin: 08/29/24 09:02 Dose: 40 mg Hydralazine HCl (Hydralazine 20 Mg/Ml Vial) 10 mg IV-PUSH Q4H PRN PRN Reason: Hypertension Stop: 08/27/25 16:33 Hydromorphone HCl (Hydromorphone 0.5 Mg/0.5 Ml Syringe) 0.5 mg IV-PUSH Q4H PRN PRN Reason: Pain Scale 8 - 10 Last Admin: 08/28/24 20:24 Dose: 0.5 mg Metronidazole (Flagyl) 500 mg in 100 mls @ 100 mls/hr IV Q8H [facility] Last Admin: 08/29/24 04:56 Dose: 100 mls/hr Levothyroxine Sodium (Levothyroxine 50 Mcg Tablet) 50 mcg PO DAILY@0630 [facility] Stop: 08/27/25 06:59 Last Admin: 08/29/24 05:56 Dose: 50 mcg Ondansetron HCl (Ondansetron 4 Mg/2 Ml Vial) 4 mg IV-PUSH Q8H PRN PRN Reason: Nausea And Vomiting Stop: 08/27/25 07:02 Oxycodone/Acetaminophen (Oxycodone/Acetaminophen 5-325 Mg Tablet) 1 tab PO Q4H PRN PRN Reason: Pain Scale 4 - 7 Last Admin: 08/29/24 09:02 Dose: 1 tab Pantoprazole Sodium (Pantoprazole 40 Mg Vial) 40 mg IV-PUSH DAILY [facility] Stop: 08/27/25 08:59 Last Admin: 08/29/24 09:03 Dose: 40 mg Sodium Chloride (Sodium Chloride 0.9 % 10 Ml Syringe) 0 ml IV-PUSH QSHIFT [facility] Stop: 08/27/25 13:59 Last Admin: 08/29/24 05:56 Dose: 10 ml Sodium Chloride (Sodium Chloride 0.9 % 10 Ml Vial.Pf) 10 ml INJECTION PRN PRN PRN Reason: Dilution Stop: 08/27/25 07:02 Last Admin: 08/27/24 08:09 Dose: 10 ml Sodium Chloride (Sodium Chloride 0.9 % 10 Ml Syringe) 10 ml IV-PUSH PRN PRN PRN Reason: Flush Stop: 08/27/25 07:02 Last Admin: 08/28/24 20:24 Dose: 10 ml Exam Physical Exam Vital Signs: Temp Pulse Resp BP Pulse Ox O2 Del Method O2 Flow Rate 98.3 F 75 18 126/77 97 Room Air 2 08/29/24 07:34 08/29/24 07:34 08/29/24 07:34 08/29/24 07:34 08/29/24 07:34 08/29/24 07:34 08/28/24 09:26 Const General: cooperative and comfortable Orientation: alert, awake and oriented x3 Resp Effort & Inspection: normal respiratory effort and able to speak in complete sentences Auscultation: clear to auscultation bilaterally Cardio Rate: regular rate Rhythm: regular rhythm GI Inspection: incision (Lap incisions are healing nicely.) Palpation: soft and nontender Auscultation: normal bowel sounds Other: 30 mL of drainage reported in the abdominal drain bulb in the last 24 hours. Minimal drainage in the bulb currently Objective Pain Assessment Right Lower Abdomen: Pain Description: Sharp Pain Intensity: 8 Intake & Output 24 hour I&O: Intake & Output 08/28/24 08/29/24 08/29/24 23:59 07:59 15:59 Intake Total 500 / 1180 200 / 200 Output Total 415 / 575 515 / 515 Balance 85 / 605 -315 / -315 Weight 148.1 kg Labs 08/29/24 05:22 08/29/24 05:22 Laboratory Results - Last 48 hrs. 08/29/24 05:22: Corrected WBC 6.2, Uncorrected WBC Count 6.2, RBC 3.59 L, Hgb 10.7 L, Hct 31.5 L, MCV 87.8, MCH 29.9, MCHC 34.1, RDW 14.9, Plt Count 162, MPV 7.0, Neut % (Auto) 72.5, Lymph % (Auto) 21.8, Haines % (Auto) 5.0, Eos % (Auto) 0.3, Baso % (Auto) 0.4, Nucleat RBC Rel Count 0.0, Neut # (Auto) 4.5, Lymph # (Auto) 1.3, Haines # (Auto) 0.3, Eos # (Auto) 0.0, Baso # (Auto) 0.0, PHA Creatinine Clear 137.77, Sodium 139, Potassium 3.6, Chloride 106, Carbon Dioxide 28.8, Anion Gap 7.8, BUN 13, Creatinine 0.71, Est GFR (CKD-EPI) > 60.0, Glucose 104 H, Calcium 7.8 L, Total Bilirubin 1.1 H, AST 102 H, ALT 57 H, Alkaline Phosphatase 94, Total Protein 5.7 L, Albumin 3.2 L, Globulin 2.5, Albumin/Globulin Ratio 1.3 08/28/24 05:43: Corrected WBC 12.7 H, Uncorrected WBC Count 12.7 H, RBC 3.76, Hgb 11.3 L, Hct 32.7 L, MCV 87.0, MCH 30.1, MCHC 34.6, RDW 14.6, Plt Count 176, MPV 7.1, Neut % (Auto) 87.4, Lymph % (Auto) 7.6, Haines % (Auto) 4.9, Eos % (Auto) 0.0, Baso % (Auto) 0.1, Nucleat RBC Rel Count 0.0, Neut # (Auto) 11.1 H, Lymph # (Auto) 1.0, Haines # (Auto) 0.6, Eos # (Auto) 0.0, Baso # (Auto) 0.0, PHA Creatinine Clear 130.29, Sodium 137, Potassium 4.0, Chloride 102, Carbon Dioxide 29.0, Anion Gap 10.0, BUN 12, Creatinine 0.74, Est GFR (CKD-EPI) > 60.0, Glucose 140 H, Calcium 8.4 L, Magnesium 2.0, Total Bilirubin 1.3 H, AST 8 L, ALT 10, Alkaline Phosphatase 69, Total Protein 6.2 L, Albumin 3.5, Globulin 2.7, Albumin/Globulin Ratio 1.3 08/27/24 09:34: PHA Creatinine Clear 135.43, Sodium 135 L, Potassium 3.7, Chloride 100, Carbon Dioxide 29.5, Anion Gap 9.2, BUN 11, Creatinine 0.71, Est GFR (CKD-EPI) > 60.0, Glucose 126 H, Calcium 9.3, Phosphorus 4.5, Magnesium 1.6 L, Total Bilirubin 1.3 H, AST 14, ALT 12, Alkaline Phosphatase 78, Total Protein 6.3 L, Albumin 3.7, Globulin 2.6, Albumin/Globulin Ratio 1.4 A&P - General Surgery Assessment/Plan (1) Acute appendicitis: Qualifiers: Acute appendicitis type: with localized peritonitis Appendicitis gangrene presence: without gangrene Appendicitis perforation presence: without perforation Appendicitis abscess presence: without abscess Qualified Code(s): K35.30 - Acute appendicitis with localized peritonitis, without perforation or gangrene Plan Patient is postop from laparoscopic appendectomy for gangrenous appendicitis. Her white count is normal today. There is minimal drainage in the abdominal drain bulb. I have removed the drain. We discussed wound care. She has a follow-up visit scheduled Dr. Padilla. I will clear her for discharge from a surgical standpoint. Documented By: George Thomson DO 08/29/2406 04 Signed By: <Electronically signed by George Thomson DO> 08/29/[address] [place] [address] Work Phone: 1([phone] 928-458101-19-2025 [place] [id number] General Surgery Progress Note Signed Patient: Deidre Clemons MR#: [id number] : 1975 Acct:[id number] Age/Sex: 49 / F Adm Date: 5 Loc: 4N Room: [address] [place] [address] Type: ADM IN Attending Dr: Marin Barron MD Copies to: ~ Date of Service: 08/29/2024 Subjective Subjective Patient reports: no new complaints and feels better HPI: Patient is doing well. No abdominal complaints she is tolerating a diet and would like to go home today. Allergies & Medications Medications and Allergies Allergies No Known Allergies Allergy (Verified 07/05/24 09:37) Home Medications Biotin PO 01/28/24 [History Confirmed 07/05/24] Co q 10 PO 01/28/24 [History Confirmed 07/05/24] Magnesium PO 01/28/24 [History Confirmed 07/05/24] berberine PO 01/28/24 [History Confirmed 07/05/24] cholecalciferol (vitamin D3) 50 mcg (2,000 unit) tablet 50 mcg PO DAILY 01/28/24[History Confirmed 07/05/24] fluticasone propionate 0.05 % topical cream applic topical 01/28/24 [History Confirmed 01/28/24] levothyroxine 50 mcg tablet 50 mcg PO DAILY.AC.BKFAST 01/28/24 [History Confirmed 07/05/24] losartan 50 mg tablet 50 mg PO BID 01/28/24 [History Confirmed 07/05/24] hydrochlorothiazide 12.5 mg tablet 12.5 mg PO BID #180 tabs 03/03/24 [Rx Confirmed 07/05/24] citalopram 10 mg tablet 10 mg PO DAILY 07/05/24 [History Confirmed 07/05/24] clonazepam 0.5 mg tablet (Klonopin) 0.5 mg PO DAILY PRN anxiety 7 days #14 tabs 07/05/24 [Rx Confirmed 07/05/24] labetalol 300 mg tablet 300 mg PO .COMPLEX 07/05/24 [History Confirmed 07/05/24] cephalexin 500 mg capsule 500 mg PO QID 4 days #16 caps 08/29/24 [Rx] Active Medications Acetaminophen (Acetaminophen 325 Mg Tablet) 650 mg PO Q6HR PRN PRN Reason: Pain Scale 1 - 3 or fever Stop: 08/27/25 07:02 Ceftriaxone Sodium (Ceftriaxone 2 Gm/20 Ml Syringe) 2 gm IV-PUSH Q24H [facility] Last Admin: 08/29/24 04:55 Dose: 2 gm Citalopram Hydrobromide (Citalopram 10 Mg Tablet) 10 mg PO DAILY [facility] Stop: 08/27/25 08:59 Last Admin: 08/29/24 09:02 Dose: 10 mg Enoxaparin Sodium (Enoxaparin 40 Mg/0.4 Ml Syringe) 40 mg SUBCUT DAILY@10 [facility] Stop: 08/27/25 09:59 Last Admin: 08/29/24 09:02 Dose: 40 mg Hydralazine HCl (Hydralazine 20 Mg/Ml Vial) 10 mg IV-PUSH Q4H PRN PRN Reason: Hypertension Stop: 08/27/25 16:33 Hydromorphone HCl (Hydromorphone 0.5 Mg/0.5 Ml Syringe) 0.5 mg IV-PUSH Q4H PRN PRN Reason: Pain Scale 8 - 10 Last Admin: 08/28/24 20:24 Dose: 0.5 mg Metronidazole (Flagyl) 500 mg in 100 mls @ 100 mls/hr IV Q8H [facility] Last Admin: 08/29/24 04:56 Dose: 100 mls/hr Levothyroxine Sodium (Levothyroxine 50 Mcg Tablet) 50 mcg PO DAILY@0630 [facility] Stop: 08/27/25 06:59 Last Admin: 08/29/24 05:56 Dose: 50 mcg Ondansetron HCl (Ondansetron 4 Mg/2 Ml Vial) 4 mg IV-PUSH Q8H PRN PRN Reason: Nausea And Vomiting Stop: 08/27/25 07:02 Oxycodone/Acetaminophen (Oxycodone/Acetaminophen 5-325 Mg Tablet) 1 tab PO Q4H PRN PRN Reason: Pain Scale 4 - 7 Last Admin: 08/29/24 09:02 Dose: 1 tab Pantoprazole Sodium (Pantoprazole 40 Mg Vial) 40 mg IV-PUSH DAILY [facility] Stop: 08/27/25 08:59 Last Admin: 08/29/24 09:03 Dose: 40 mg Sodium Chloride (Sodium Chloride 0.9 % 10 Ml Syringe) 0 ml IV-PUSH QSHIFT [facility] Stop: 08/27/25 13:59 Last Admin: 08/29/24 05:56 Dose: 10 ml Sodium Chloride (Sodium Chloride 0.9 % 10 Ml Vial.Pf) 10 ml INJECTION PRN PRN PRN Reason: Dilution Stop: 08/27/25 07:02 Last Admin: 08/27/24 08:09 Dose: 10 ml Sodium Chloride (Sodium Chloride 0.9 % 10 Ml Syringe) 10 ml IV-PUSH PRN PRN PRN Reason: Flush Stop: 08/27/25 07:02 Last Admin: 08/28/24 20:24 Dose: 10 ml Exam Physical Exam Vital Signs: Temp Pulse Resp BP Pulse Ox O2 Del Method O2 Flow Rate 98.3 F 75 18 126/77 97 Room Air 2 08/29/24 07:34 08/29/24 07:34 08/29/24 07:34 08/29/24 07:34 08/29/24 07:34 08/29/24 07:34 08/28/24 09:26 Const General: cooperative and comfortable Orientation: alert, awake and oriented x3 Resp Effort & Inspection: normal respiratory effort and able to speak in complete sentences Auscultation: clear to auscultation bilaterally Cardio Rate: regular rate Rhythm: regular rhythm GI Inspection: incision (Lap incisions are healing nicely.) Palpation: soft and nontender Auscultation: normal bowel sounds Other: 30 mL of drainage reported in the abdominal drain bulb in the last 24 hours. Minimal drainage in the bulb currently Objective Pain Assessment Right Lower Abdomen: Pain Description: Sharp Pain Intensity: 8 Intake & Output 24 hour I&O: Intake & Output 08/28/24 08/29/24 08/29/24 23:59 07:59 15:59 Intake Total 500 / 1180 200 / 200 Output Total 415 / 575 515 / 515 Balance 85 / 605 -315 / -315 Weight 148.1 kg Labs 08/29/24 05:22 08/29/24 05:22 Laboratory Results - Last 48 hrs. 08/29/24 05:22: Corrected WBC 6.2, Uncorrected WBC Count 6.2, RBC 3.59 L, Hgb 10.7 L, Hct 31.5 L, MCV 87.8, MCH 29.9, MCHC 34.1, RDW 14.9, Plt Count 162, MPV 7.0, Neut % (Auto) 72.5, Lymph % (Auto) 21.8, Haines % (Auto) 5.0, Eos % (Auto) 0.3, Baso % (Auto) 0.4, Nucleat RBC Rel Count 0.0, Neut # (Auto) 4.5, Lymph # (Auto) 1.3, Haines # (Auto) 0.3, Eos # (Auto) 0.0, Baso # (Auto) 0.0, PHA Creatinine Clear 137.77, Sodium 139, Potassium 3.6, Chloride 106, Carbon Dioxide 28.8, Anion Gap 7.8, BUN 13, Creatinine 0.71, Est GFR (CKD-EPI) > 60.0, Glucose 104 H, Calcium 7.8 L, Total Bilirubin 1.1 H, AST 102 H, ALT 57 H, Alkaline Phosphatase 94, Total Protein 5.7 L, Albumin 3.2 L, Globulin 2.5, Albumin/G lobulin Ratio 1.3 08/28/24 05:43: Corrected WBC 12.7 H, Uncorrected WBC Count 12.7 H, RBC 3.76, Hgb 11.3 L, Hct 32.7 L, MCV 87.0, MCH 30.1, MCHC 34.6, RDW 14.6, Plt Count 176, MPV 7.1, Neut % (Auto) 87.4, Lymph % (Auto) 7.6, Haines % (Auto) 4.9, Eos % (Auto) 0.0, Baso % (Auto) 0.1, Nucleat RBC Rel Count 0.0, Neut # (Auto) 11.1 H, Lymph # (Auto) 1.0, Haines # (Auto) 0.6, Eos # (Auto) 0.0, Baso # (Auto) 0.0, PHA Creatinine Clear 130.29, Sodium 137, Potassium 4.0, Chloride 102, Carbon Dioxide 29.0, Anion Gap 10.0, BUN 12, Creatinine 0.74, Est GFR (CKD-EPI) > 60.0, Glucose 140 H, Calcium 8.4 L, Magnesium 2.0, TotalBilirubin 1.3 H, AST 8 L, ALT 10, Alkaline Phosphatase 69, Total Protein 6.2 L, Albumin 3.5, Globulin 2.7, Albumin/Globulin Ratio 1.3 08/27/24 09:34: PHA Creatinine Clear 135.43, Sodium 135 L, Potassium 3.7, Chloride 100, Carbon Dioxide 29.5, Anion Gap 9.2, BUN 11, Creatinine 0.71, Est GFR (CKD-EPI) > 60.0, Glucose 126 H, Calcium 9.3, Phosphorus 4.5, Magnesium 1.6 L, Total Bilirubin 1.3 H, AST 14, ALT 12, Alkaline Phosphatase 78, Total Protein 6.3 L, Albumin 3.7, Globulin 2.6, Albumin/Globulin Ratio 1.4 A&P - General Surgery Assessment/Plan (1) Acute appendicitis: Qualifiers: Acute appendicitis type: with localized peritonitis Appendicitis gangrene presence: without gangrene Appendicitis perforation presence: without perforation Appendicitis abscess presence: without abscess Qualified Code(s): K35.30 - Acute appendicitis with localized peritonitis, without perforation or gangrene Plan Patient is postop from laparoscopic appendectomy for gangrenous appendicitis. Her white count is normal today. There is minimal drainage in the abdominal drain bulb. I have removed the drain. We discussed wound care. She has a follow- up visit scheduled Dr. Padilla. I will clear her for discharge from a surgical standpoint. Documented By: George Thomson DO 08/29/2406 04 Signed By: 08/29/[address] [place], [place] [id number] Progress note Author Winnie Miller [facility] Note Date/Time August 28, 2024 9 :49pm [facility] [address] [place] [address] Hospitalist Progress Note Signed Patient: Deidre Clemons MR#: [id number] : 1975 Acct:[id number] Age/Sex: 49 / F Adm Date: 5 Loc: 4N Room: [id number] Type: ADM IN Attending Dr: Marin Barron MD Copies to: ~ Date of Service: 08/28/2024 Subjective Subjective Narrative: Patient seen and examined. Eating lunch. present. Pain managed. No BM yet, not passing gas. Denies nausea. Exam Physical Exam Vital Signs: Temp Pulse Resp BP Pulse Ox O2 Del Method O2 Flow Rate 98.7 F 97 18 116/76 97 Room Air 2 08/28/24 11:00 08/28/24 11:00 08/28/24 09:21 08/28/24 11:00 08/28/24 11:00 08/28/24 11:00 08/28/24 09:21 Narrative: CONST-alert, in bed CARD- RRR no abnormal heart tones PULM- dimin without wheeze or rhonchi, RA ABD-soft, tender right abdomen, NABS, obese EXTREM- no edema BLE, calves nontender SKIN- lap sites no drainage, drain in place Objective Lab Results 08/28/24 05:43 08/28/24 05:43 Meds Allergies and Active Meds Allergies No Known Allergies Allergy (Verified 07/05/24 09:37) Active Meds: Active Medications Generic Name Dose Route Start Last Admin Trade Name Freq PRN Reason Stop Dose Admin Acetaminophen 650 mg 08/27/24 07:03 Acetaminophen 325 Mg Tablet PO 08/27/25 07:02 Q6HR PRN Pain Scale 1 - 3 or fever Ceftriaxone Sodium 2 gm 08/28/24 04:00 08/28/24 04:43 Ceftriaxone 2 Gm/20 Ml Syringe IV-PUSH 2 gm Q24H JOLYNN Administration Citalopram Hydrobromide 10 mg 08/27/24 09:00 08/28/24 09:26 Citalopram 10 Mg Tablet PO 08/27/25 08:59 10 mg DAILY JOLYNN Administration Enoxaparin Sodium 40 mg 08/27/24 10:00 08/28/24 09:24 Enoxaparin 40 Mg/0.4 Ml Syringe SUBCUT 08/27/25 09:59 40 mg DAILY@10 JOLYNN Administration Hydralazine HCl 10 mg 08/27/24 16:34 Hydralazine 20 Mg/Ml Vial IV-PUSH 08/27/25 16:33 Q4H PRN Hypertension Hydromorphone HCl 0.5 mg 08/27/24 07:03 08/28/24 10:54 Hydromorphone 0.5 Mg/0.5 Ml Syringe IV-PUSH 0.5 mg Q4H PRN Administration Pain Scale 8 - 10 Metronidazole 500 mg in 100 mls @ 100 mls/hr 08/27/24 12:30 08/28/24 04:49 Flagyl IV 100 mls/hr Q8H JOLYNN Administration Levothyroxine Sodium 50 mcg 08/27/24 07:00 08/28/24 06:03 Levothyroxine 50 Mcg Tablet PO 08/27/25 06:59 50 mcg DAILY@0630 JOLYNN Administration Ondansetron HCl 4 mg 08/27/24 07:03 Ondansetron 4 Mg/2 Ml Vial IV-PUSH 08/27/25 07:02 Q8H PRN Nausea And Vomiting Oxycodone/Acetaminophen 1 tab 08/27/24 07:03 08/28/24 09:25 Oxycodone/Acetaminophen 5-325 Mg Tablet PO 1 tab Q4H PRN Administration Pain Scale 4 - 7 Pantoprazole Sodium 40 mg 08/27/24 09:00 08/28/24 09:30 Pantoprazole 40 Mg Vial IV-PUSH 08/27/25 08:59 40 mg DAILY JOLYNN Administration Sodium Chloride 0 ml 08/27/24 14:00 08/28/24 06:04 Sodium Chloride 0.9 % 10 Ml Syringe IV-PUSH 08/27/25 13:59 10 ml QSHIFT JOLYNN Administration Sodium Chloride 10 ml 08/27/24 07:03 08/27/24 08:09 Sodium Chloride 0.9 % 10 Ml Vial.Pf INJECTION 08/27/25 07:02 10 ml PRN PRN Administration Dilution Sodium Chloride 10 ml 08/27/24 07:03 Sodium Chloride 0.9 % 10 Ml Syringe IV-PUSH 08/27/25 07:02 PRN PRN Flush A&P - Hospitalist Assessment/Plan (1) Anxiety: (2) Depression: (3) Hypertension: (4) Hypothyroidism: (5) Vitamin D deficiency: (6) Acute appendicitis: (7) Abdominal pain: (8) Hypomagnesemia: Plan Acute appendicitis s/p appendectomy 08/27/24 -management per general surgery -Ceftriaxone, metronidazole, leukocytosis, afebrile -CT abdomen pelvis at [place] demonstrated complicated appendicitis Hypomagnesemia -replete, trend Chronic conditions 1. Hypothyroid?levothyroxine 2. Depression?citalopram 3. Hypertension- Losartan, HCTZ, labetalol on hold Dr. Barron Attestation: Patient was personally seen by me on the day of encounter. I reviewed her history and performed [place] elements of exam and formulated the plan of care and confirmed the nurse practitioners note above. Plan of care reflects my direct input Documented By: Winnie Miller APRN 08/11 04/04 1137 Signed By: <Electronically signed by FEI Miller> 08/28/24 1528 <Electronically signed by Marin Barron MD> 08/28/24 9590 [facility] Work Phone: [phone] 363-818201-18-[address] [address] Hospitalist Progress Note Signed Patient: Deidre Clemons MR#: [id number] : 1975 Acct:[id number] Age/Sex: 49 / F Adm Date: 5 Loc: 4 Room: [id number] Type: ADM IN Attending Dr: Marin Barron MD Copies to: ~ Date of Service: 08/28/2024 Subjective Subjective Narrative: Patient seen and examined. Eating lunch. present. Pain managed. No BM yet, not passing gas.Denies nausea. Exam Physical Exam Vital Signs: Temp Pulse Resp BP Pulse Ox O2 Del Method O2 Flow Rate 98.7 F 97 18 116/76 97 Room Air 2 08/28/24 11:00 08/28/24 11:00 08/28/24 09:21 08/28/24 11:00 08/28/24 11:00 08/28/24 11:00 08/28/24 09:21 Narrative: CONST-alert, in bed CARD- RRR no abnormal heart tones PULM- dimin without wheeze or rhonchi, RA ABD-soft, tender right abdomen, NABS, obese EXTREM- no edema BLE, calves nontender SKIN- lap sites no drainage, drain in place Objective Lab Results 08/28/24 05:43 08/28/24 05:43 Meds Allergies and Active Meds Allergies No Known Allergies Allergy (Verified 07/05/24 09:37) Active Meds: Active Medications Generic Name Dose Route Start Last Admin Trade Name Freq PRN Reason Stop Dose Admin Acetaminophen 650 mg 08/27/24 07:03 Acetaminophen 325 Mg Tablet PO 08/27/25 07:02 Q6HR PRN Pain Scale 1 - 3 or fever Ceftriaxone Sodium 2 gm 08/28/24 04:00 08/28/24 04:43 Ceftriaxone 2 Gm/20 Ml Syringe IV-PUSH 2 gm Q24H JOLYNN Administration Citalopram Hydrobromide 10 mg 08/27/24 09:00 08/28/24 09:26 Citalopram 10 Mg Tablet PO 08/27/25 08:59 10 mg DAILY JOLYNN Administration Enoxaparin Sodium 40 mg 08/27/24 10:00 08/28/24 09:24 Enoxaparin 40 Mg/0.4 Ml Syringe SUBCUT 08/27/25 09:59 40 mg DAILY@10 JOLYNN Administration Hydralazine HCl 10 mg 08/27/24 16:34 Hydralazine 20 Mg/Ml Vial IV-PUSH 08/27/25 16:33 Q4H PRN Hypertension Hydromorphone HCl 0.5 mg 08/27/24 07:03 08/28/24 10:54 Hydromorphone 0.5 Mg/0.5 Ml Syringe IV-PUSH 0.5 mg Q4H PRN Administration Pain Scale 8 - 10 Metronidazole 500 mg in 100 mls @ 100 mls/hr 08/27/24 12:30 08/28/24 04:49 Flagyl IV 100 mls/hr Q8H JOLYNN Administration Levothyroxine Sodium 50 mcg 08/27/24 07:00 08/28/24 06:03 Levothyroxine 50 Mcg Tablet PO 08/27/25 06:59 50 mcg DAILY@0630 JOLYNN Administration Ondansetron HCl 4 mg 08/27/24 07:03 Ondansetron 4 Mg/2 Ml Vial IV-PUSH 08/27/25 07:02 Q8H PRN Nausea And Vomiting Oxycodone/Acetaminophen 1 tab 08/27/24 07:03 08/28/24 09:25 Oxycodone/Acetaminophen 5-325 Mg Tablet PO 1 tab Q4H PRN Administration Pain Scale 4 - 7 Pantoprazole Sodium 40 mg 08/27/24 09:00 08/28/24 09:30 Pantoprazole 40 Mg Vial IV-PUSH 08/27/25 08:59 40 mg DAILY JOLYNN Administration Sodium Chloride 0 ml 08/27/24 14:00 08/28/24 06:04 Sodium Chloride 0.9 % 10 Ml Syringe IV-PUSH 08/27/25 13:59 10 ml QSHIFT JOLYNN Administration Sodium Chloride 10 ml 08/27/24 07:03 08/27/24 08:09 Sodium Chloride 0.9 % 10 Ml Vial.Pf INJECTION 08/27/25 07:02 10 ml PRN PRN Administration Dilution Sodium Chloride 10 ml 01/17/25 07:03 Sodium Chloride 0.9 % 10 Ml Syringe IV-PUSH 08/27/25 07:02 PRN PRN Flush A&P - Hospitalist Assessment/Plan (1) Anxiety: (2) Depression: (3) Hypertension: (4) Hypothyroidism: (5) Vitamin D deficiency: (6) Acute appendicitis: (7) Abdominal pain: (8) Hypomagnesemia: Plan Acute appendicitis s/p appendectomy 08/27/24 -management per general surgery -Ceftriaxone, metronidazole, leukocytosis, afebrile -CT abdomen pelvis at [place] demonstrated complicated appendicitis Hypomagnesemia -replete, trend Chronic conditions 1. Hypothyroid?levothyroxine 2. Depression?citalopram 3. Hypertension- Losartan, HCTZ, labetalol on hold Dr. Barron Attestation: Patient was personally seen by me on the day of encounter. I reviewed her history and performed keyelements of exam and formulated the plan of care and confirmed the nurse practitioners note above. Plan of care reflects my direct input Documented By: Winnie Miller APRN 08/11 04/04 1137 Signed By: 08/28/24 1528 08/28/24 2149 [facility]01-18-2025 Progress note Author George Thomson [facility] Note Date/Time August 28, 2024 1 0:02am [facility] [address] [place] [address] General Surgery Progress Note Signed Patient: Deidre Clemons MR#: [id number] : 1975 Acct:[id number] Age/Sex: 49 / F Adm Date: 5 Loc: 4N Room: [address] [place] [address] Type: ADM IN Attending Dr: Marin Barron MD Copies to: ~ Date of Service: 08/28/2024 Subjective Subjective Patient reports: no new complaints HPI: The patient is resting comfortably. She still says she has some abdominal pain. She is tolerating a diet Allergies & Medications Medications and Allergies Allergies No Known Allergies Allergy (Verified 07/05/24 09:37) Home Medications Biotin PO 01/28/24 [History Confirmed 07/05/24] Co q 10 PO 01/28/24 [History Confirmed 07/05/24] Magnesium PO 01/28/24 [History Confirmed 07/05/24] berberine PO 01/28/24 [History Confirmed 07/05/24] cholecalciferol (vitamin D3) 50 mcg (2,000 unit) tablet 50 mcg PO DAILY 01/28/24[History Confirmed 07/05/24] fluticasone propionate 0.05 % topical cream applic topical 01/28/24 [History Confirmed 01/28/24] levothyroxine 50 mcg tablet 50 mcg PO DAILY.AC.BKFAST 01/28/24 [History Confirmed 07/05/24] losartan 50 mg tablet 50 mg PO BID 01/28/24 [History Confirmed 07/05/24] hydrochlorothiazide 12.5 mg tablet 12.5 mg PO BID #180 tabs 03/03/24 [Rx Confirmed 07/05/24] citalopram 10 mg tablet 10 mg PO DAILY 07/05/24 [History Confirmed 07/05/24] clonazepam 0.5 mg tablet (Klonopin) 0.5 mg PO DAILY PRN anxiety 7 days #14 tabs 07/05/24 [Rx Confirmed 07/05/24] labetalol 300 mg tablet 300 mg PO .COMPLEX 07/05/24 [History Confirmed 07/05/24] Active Medications Acetaminophen (Acetaminophen 325 Mg Tablet) 650 mg PO Q6HR PRN PRN Reason: Pain Scale 1 - 3 or fever Stop: 08/27/25 07:02 Ceftriaxone Sodium (Ceftriaxone 2 Gm/20 Ml Syringe) 2 gm IV-PUSH Q24H [facility] Last Admin: 08/28/24 04:43 Dose: 2 gm Citalopram Hydrobromide (Citalopram 10 Mg Tablet) 10 mg PO DAILY [facility] Stop: 08/27/25 08:59 Last Admin: 08/28/24 09:26 Dose: 10 mg Enoxaparin Sodium (Enoxaparin 40 Mg/0.4 Ml Syringe) 40 mg SUBCUT DAILY@10 [facility] Stop: 08/27/25 09:59 Last Admin: 08/28/24 09:24 Dose: 40 mg Hydralazine HCl (Hydralazine 20 Mg/Ml Vial) 10 mg IV-PUSH Q4H PRN PRN Reason: Hypertension Stop: 08/27/25 16:33 Hydromorphone HCl (Hydromorphone 0.5 Mg/0.5 Ml Syringe) 0.5 mg IV-PUSH Q4H PRN PRN Reason: Pain Scale 8 - 10 Last Admin: 08/28/24 02:16 Dose: 0.5 mg Metronidazole (Flagyl) 500 mg in 100 mls @ 100 mls/hr IV Q8H [facility] Last Admin: 08/28/24 04:49 Dose: 100 mls/hr Levothyroxine Sodium (Levothyroxine 50 Mcg Tablet) 50 mcg PO DAILY@0630 [facility] Stop: 08/27/25 06:59 Last Admin: 08/28/24 06:03 Dose: 50 mcg Ondansetron HCl (Ondansetron 4 Mg/2 Ml Vial) 4 mg IV-PUSH Q8H PRN PRN Reason: Nausea And Vomiting Stop: 08/27/25 07:02 Oxycodone/Acetaminophen (Oxycodone/Acetaminophen 5-325 Mg Tablet) 1 tab PO Q4H PRN PRN Reason: Pain Scale 4 - 7 Last Admin: 08/28/24 09:25 Dose: 1 tab Pantoprazole Sodium (Pantoprazole 40 Mg Vial) 40 mg IV-PUSH DAILY [facility] Stop: 08/27/25 08:59 Last Admin: 08/28/24 09:30 Dose: 40 mg Sodium Chloride (Sodium Chloride 0.9 % 10 Ml Syringe) 0 ml IV-PUSH QSHIFT [facility] Stop: 08/27/25 13:59 Last Admin: 08/28/24 06:04 Dose: 10 ml Sodium Chloride (Sodium Chloride 0.9 % 10 Ml Vial.Pf) 10 ml INJECTION PRN PRN PRN Reason: Dilution Stop: 08/27/25 07:02 Last Admin: 08/27/24 08:09 Dose: 10 ml Sodium Chloride (Sodium Chloride 0.9 % 10 Ml Syringe) 10 ml IV-PUSH PRN PRN PRN Reason: Flush Stop: 08/27/25 07:02 Exam Physical Exam Vital Signs: Temp Pulse Resp BP Pulse Ox O2 Del Method O2 Flow Rate 98.2 F 70 18 106/69 95 Nasal Cannula 2 08/28/24 09:21 08/28/24 09:21 08/28/24 09:21 08/28/24 09:21 08/28/24 09:21 08/28/24 09:21 08/28/24 09:21 Const General: cooperative and comfortable Nutritional Appearance: obese Orientation: alert, awake and oriented x3 Resp Effort & Inspection: normal respiratory effort and able to speak in complete sentences Auscultation: clear to auscultation bilaterally Cardio Rate: regular rate Rhythm: regular rhythm GI Inspection: non-distended and incision (Lap incisions are healing well) Auscultation: normal bowel sounds Other: Blood drainage in the abdominal drain bulb Objective Pain Assessment Right Lower Abdomen: Pain Description: Constant Pain Intensity: 4 Intake & Output 24 hour I&O: Intake & Output 08/27/24 08/28/24 08/28/24 23:59 07:59 15:59 Intake Total 1600 / 1700 480 / 480 Output Total 30 / 40 160 / 160 Balance 1570 / 1660 320 / 320 Weight 144.8 kg Labs 08/28/24 05:43 08/28/24 05:43 Laboratory Results - Last 48 hrs. 08/28/24 05:43: Corrected WBC 12.7 H, Uncorrected WBC Count 12.7 H, RBC 3.76, Hgb 11.3 L, Hct 32.7 L, MCV 87.0, MCH 30.1, MCHC 34.6, RDW 14.6, Plt Count 176, MPV 7.1, Neut % (Auto) 87.4, Lymph % (Auto) 7.6, Haines % (Auto) 4.9, Eos % (Auto)0.0, Baso % (Auto) 0.1, Nucleat RBC Rel Count 0.0, Neut # (Auto) 11.1 H, Lymph #(Auto) 1.0, Haines # (Auto) 0.6, Eos # (Auto) 0.0, Baso # (Auto) 0.0, PHA Creatinine Clear 130.29, Sodium 137, Potassium 4.0, Chloride 102, Carbon Bfbxldt55.0, Anion Gap 10.0, BUN 12, Creatinine 0.74, Est GFR (CKD-EPI) > 60.0, [id number] H, Calcium 8.4 L, Magnesium 2.0, Total Bilirubin 1.3 H, AST 8 L, ALT 10, Alkaline Phosphatase 69, Total Protein 6.2 L, Albumin 3.5, Globulin 2.7, Albumin/Globulin Ratio 1.3 08/27/24 09:34: PHA Creatinine Clear 135.43, Sodium 135 L, Potassium 3.7, Chloride 100, Carbon Dioxide 29.5, Anion Gap 9.2, BUN 11, Creatinine 0.71, Est GFR (CKD- EPI) > 60.0, Glucose 126 H, Calcium 9.3, Phosphorus 4.5, Magnesium 1.6 L, Total Bilirubin 1.3 H, AST 14, ALT 12, Alkaline Phosphatase 78, Total Protein6.3 L, Albumin 3.7, Globulin 2.6, Albumin/Globulin Ratio 1.4 08/27/24 09:30: Corrected WBC 12.2 H, Uncorrected WBC Count 12.2 H, RBC 4.06, Hgb 11.8, Hct 34.7, MCV 85.5, MCH 29.0, MCHC 33.9, RDW 14.9, Plt Count 205, MPV 7.1, Neut % (Auto) 84.3, Lymph % (Auto) 10.4, Haines % (Auto) 5.1, Eos % (Auto) 0.0, Baso % (Auto) 0.2, Nucleat RBC Rel Count 0.0, Neut # (Auto) 10.3 H, Lymph #(Auto) 1.3, Haines # (Auto) 0.6, Eos # (Auto) 0.0, Baso # (Auto) 0.0 A&P - General Surgery Assessment/Plan (1) Acute appendicitis: Qualifiers: Acute appendicitis type: with localized peritonitis Appendicitis gangrene presence: without gangrene Appendicitis perforation presence: without perforation Appendicitis abscess presence: without abscess Qualified Code(s): K35.30 - Acute appendicitis with localized peritonitis, without perforation or gangrene Plan This is postop day #1 from laparoscopic appendectomy for a retrocecal gangrenousappendicitis performed by Dr. Padilla. Her white count is still mildly elevated at 12.7. I will continue her antibiotics and monitoring her today. Possible discharge home tomorrow. Documented By: George Thomson DO 08/28/24 09 57 Signed By: <Electronically signed by George Thomson DO> 08/28/24 1002 [facility] Work Phone: 1(984) 951-326301-18-2025 [place] [address] General Surgery Progress Note Signed Patient: Deidre Clemons MR#: [id number] : 1975 Acct:[id number] Age/Sex: 49 / F Adm Date: 5 Loc: 4N Room: [id number] Type: ADM IN Attending Dr: Marin Barron MD Copies to: ~ Date of Service: 08/28/2024 Subjective Subjective Patient reports: no new complaints HPI: The patient is resting comfortably. She still says she has some abdominal pain. She is tolerating adiet Allergies & Medications Medications and Allergies Allergies No Known Allergies Allergy (Verified 07/05/24 09:37) Home Medications Biotin PO 01/28/24 [History Confirmed 07/05/24] Co q 10 PO 01/28/24 [History Confirmed 07/05/24] Magnesium PO 01/28/24 [History Confirmed 07/05/24] berberine PO 01/28/24 [History Confirmed 07/05/24] cholecalciferol (vitamin D3) 50 mcg (2,000 unit) tablet 50 mcg PO DAILY 01/28/24[History Confirmed 07/05/24] fluticasone propionate 0.05 % topical cream applic topical 01/28/24 [History Confirmed 01/28/24] levothyroxine 50 mcg tablet 50 mcg PO DAILY.AC.BKFAST 01/28/24 [History Confirmed 07/05/24] losartan 50 mg tablet 50 mg PO BID 01/28/24 [History Confirmed 07/05/24] hydrochlorothiazide 12.5 mg tablet 12.5 mg PO BID #180 tabs 03/03/24 [Rx Confirmed 07/05/24] citalopram 10 mg tablet 10 mg PO DAILY 07/05/24 [History Confirmed 07/05/24] clonazepam 0.5 mg tablet (Klonopin) 0.5 mg PO DAILY PRN anxiety 7 days #14 tabs 07/05/24 [Rx Confirmed 07/05/24] labetalol 300 mg tablet 300 mg PO .COMPLEX 07/05/24 [History Confirmed 07/05/24] Active Medications Acetaminophen (Acetaminophen 325 Mg Tablet) 650 mg PO Q6HR PRN PRN Reason: Pain Scale 1 - 3 or fever Stop: 08/27/25 07:02 Ceftriaxone Sodium (Ceftriaxone 2 Gm/20 Ml Syringe) 2 gm IV-PUSH Q24H [facility] Last Admin: 08/28/24 04:43 Dose: 2 gm Citalopram Hydrobromide (Citalopram 10 Mg Tablet) 10 mg PO DAILY [facility] Stop: 08/27/25 08:59 Last Admin: 08/28/24 09:26 Dose: 10 mg Enoxaparin Sodium (Enoxaparin 40 Mg/0.4 Ml Syringe) 40 mg SUBCUT DAILY@10 [facility] Stop: 08/27/25 09:59 Last Admin: 08/28/24 09:24 Dose: 40 mg Hydralazine HCl (Hydralazine 20 Mg/Ml Vial) 10 mg IV-PUSH Q4H PRN PRN Reason: Hypertension Stop: 08/27/25 16:33 Hydromorphone HCl (Hydromorphone 0.5 Mg/0.5 Ml Syringe) 0.5 mg IV-PUSH Q4H PRN PRN Reason: Pain Scale 8 - 10 Last Admin: 08/28/24 02:16 Dose: 0.5 mg Metronidazole (Flagyl) 500 mg in 100 mls @ 100 mls/hr IV Q8H [facility] Last Admin: 08/28/24 04:49 Dose: 100 mls/hr Levothyroxine Sodium (Levothyroxine 50 Mcg Tablet) 50 mcg PO DAILY@0630 [facility] Stop: 08/27/25 06:59 Last Admin: 08/28/24 06:03 Dose: 50 mcg Ondansetron HCl (Ondansetron 4 Mg/2 Ml Vial) 4 mg IV-PUSH Q8H PRN PRN Reason: Nausea And Vomiting Stop: 08/27/25 07:02 Oxycodone/Acetaminophen (Oxycodone/Acetaminophen 5-325 Mg Tablet) 1 tab PO Q4H PRN PRN Reason: Pain Scale 4 - 7 Last Admin: 08/28/24 09:25 Dose: 1 tab Pantoprazole Sodium (Pantoprazole 40 Mg Vial) 40 mg IV-PUSH DAILY [facility] Stop: 08/27/25 08:59 Last Admin: 08/28/24 09:30 Dose: 40 mg Sodium Chloride (Sodium Chloride 0.9 % 10 Ml Syringe) 0 ml IV-PUSH QSHIFT [facility] Stop: 08/27/25 13:59 Last Admin: 08/28/24 06:04 Dose: 10 ml Sodium Chloride (Sodium Chloride 0.9 % 10 Ml Vial.Pf) 10 ml INJECTION PRN PRN PRN Reason: Dilution Stop: 08/27/25 07:02 Last Admin: 08/27/24 08:09 Dose: 10 ml Sodium Chloride (Sodium Chloride 0.9 % 10 Ml Syringe) 10 ml IV-PUSH PRN PRN PRN Reason: Flush Stop: 08/27/25 07:02 Exam Physical Exam Vital Signs: Temp Pulse Resp BP Pulse Ox O2 Del Method O2 Flow Rate 98.2 F 70 18 106/69 95 Nasal Cannula 2 08/28/24 09:21 08/28/24 09:21 08/28/24 09:21 08/28/24 09:21 08/28/24 09:21 08/28/24 09:21 08/28/24 09:21 Const General: cooperative and comfortable Nutritional Appearance: obese Orientation: alert, awake and oriented x3 Resp Effort & Inspection: normal respiratory effort and able to speak in complete sentences Auscultation: clear to auscultation bilaterally Cardio Rate: regular rate Rhythm: regular rhythm GI Inspection: non-distended and incision (Lap incisions are healing well) Auscultation: normal bowel sounds Other: Blood drainage in the abdominal drain bulb Objective Pain Assessment Right Lower Abdomen: Pain Description: Constant Pain Intensity: 4 Intake & Output 24 hour I&O: Intake & Output 08/27/24 08/28/24 08/28/24 23:59 07:59 15:59 Intake Total 1600 / 1700 480 / 480 Output Total 30 / 40 160 / 160 Balance 1570 / 1660 320 / 320 Weight 144.8 kg Labs 08/28/24 05:43 08/28/24 05:43 Laboratory Results - Last 48 hrs. 08/28/24 05:43: Corrected WBC 12.7 H, Uncorrected WBC Count 12.7 H, RBC 3.76, Hgb 11.3 L, Hct 32.7 L, MCV 87.0, MCH 30.1, MCHC 34.6, RDW 14.6, Plt Count 176, MPV 7.1, Neut % (Auto) 87.4, Lymph % (Auto) 7.6, Haines % (Auto) 4.9, Eos % (Auto)0.0, Baso % (Auto) 0.1, Nucleat RBC Rel Count 0.0, Neut # (Auto) 11.1 H, Lymph #(Auto) 1.0, Haines # (Auto) 0.6, Eos # (Auto) 0.0, Baso # (Auto) 0.0, PHA Creatinine Clear 130.29, Sodium 137, Potassium 4.0, Chloride 102, Carbon Htehuux13.0, Anion Gap 10.0, BUN 12,Creatinine 0.74, Est GFR (CKD-EPI) > 60.0, [id number] H, Calcium 8.4 L, Magnesium 2.0, Total Bilirubin 1.3 H, AST 8 L, ALT 10, Alkaline Phosphatase 69, Total Protein 6.2 L, Albumin 3.5, Globulin 2.7, Albumin/Globulin Ratio 1.3 08/27/24 09:34: PHA Creatinine Clear 135.43, Sodium 135 L, Potassium 3.7, Chloride 100, Carbon Dioxide 29.5, Anion Gap 9.2, BUN 11, Creatinine 0.71, Est GFR (CKD-EPI) > 60.0, Glucose 126 H, Calcium 9.3, Phosphorus 4.5, Magnesium 1.6 L, Total Bilirubin 1.3 H, AST 14, ALT 12, Alkaline Phosphatase 78, Total Protein6.3 L, Albumin 3.7, Globulin 2.6, Albumin/Globulin Ratio 1.4 08/27/24 09:30: Corrected WBC 12.2 H, Uncorrected WBC Count 12.2 H, RBC 4.06, Hgb 11.8, Hct 34.7, MCV 85.5, MCH 29.0, MCHC 33.9, RDW 14.9, Plt Count 205, MPV 7.1, Neut % (Auto) 84.3, Lymph % (Auto) 10.4, Haines % (Auto) 5.1, Eos % (Auto) 0.0, Baso % (Auto) 0.2, Nucleat RBC Rel Count 0.0, Neut # (Auto) 10.3 H, Lymph #(Auto) 1.3, Haines # (Auto) 0.6, Eos # (Auto) 0.0, Baso # (Auto) 0.0 A&P - General Surgery Assessment/Plan (1) Acute appendicitis: Qualifiers: Acute appendicitis type: with localized peritonitis Appendicitis gangrene presence: without gangrene Appendicitis perforation presence: without perforation Appendicitis abscess presence: without abscess Qualified Code(s): K35.30 - Acute appendicitis with localized peritonitis, without perforation or gangrene Plan This is postop day #1 from laparoscopic appendectomy for a retrocecal gangrenousappendicitis performed by Dr. Padilla. Her white count is still mildly elevated at 12.7. I will continue her antibioticsand monitoring her today. Possible discharge home tomorrow. Documented By: George Thomson DO 08/28/24 09 57 Signed By: 08/28/[address] [place], [place] [id number] Progress note Author Winnie Miller [place] Hospital Note Date/Time August 27, 2024 7 :42pm [facility] [address] [place] [address] Hospitalist Progress Note Signed Patient: Deidre Clemons MR#: [id number] : 1975 Acct:[id number] Age/Sex: 49 / F Adm Date: 5 Loc: Room: [address] [place] [address] Type: ADM IN Attending Dr: Marin Barron MD Copies to: ~ Date of Service: 08/27/2024 Subjective Subjective Narrative: Patient is seen and examined. She is sleepy secondary to pain medication. No visitors present at this time. Endorses right abdomen pain, no nausea. Passinggas. He is aware surgery is planned for 5 PM today. Exam Physical Exam Vital Signs: Temp Resp BP Pulse Ox O2 Del Method 98.2 F 17 137/68 97 Room Air 08/27/24 07:30 08/27/24 07:30 08/27/24 07:30 08/27/24 07:30 08/27/24 07:30 Narrative: CONST-sleeping, in bed CARD- RRR no abnormal heart tones PULM- dimin without wheeze or rhonchi, RA ABD-soft, tender right abdomen, NABS, obese EXTREM- no edema BLE, calves nontender Objective Lab Results 08/27/24 09:30 08/27/24 09:34 Meds Allergies and Active Meds Allergies No Known Allergies Allergy (Verified 07/05/24 09:37) Active Meds: Active Medications Generic Name Dose Route Start Last Admin Trade Name Freq PRN Reason Stop Dose Admin Acetaminophen 650 mg 08/27/24 07:03 Acetaminophen 325 Mg Tablet PO 08/27/25 07:02 Q6HR PRN Pain Scale 1 - 3 or fever Ceftriaxone Sodium 2 gm 08/28/24 04:00 Ceftriaxone 2 Gm/20 Ml Syringe IV-PUSH Q24H [facility] Citalopram Hydrobromide 10 mg 08/27/24 09:00 08/27/24 08:09 Citalopram 10 Mg Tablet PO 08/27/25 08:59 10 mg DAILY [facility] Administration Enoxaparin Sodium 40 mg 08/27/24 10:00 08/27/24 09:14 Enoxaparin 40 Mg/0.4 Ml Syringe SUBCUT 08/27/25 09:59 Not Given DAILY@10 [facility] Hydromorphone HCl 0.5 mg 08/27/24 07:03 08/27/24 08:08 Hydromorphone 0.5 Mg/0.5 Ml Syringe IV-PUSH 0.5 mg Q4H PRN Administration Pain Scale 8 - 10 Lactated Ringer's 1,000 mls @ 75 mls/hr 08/27/24 07:15 08/27/24 08:10 Lactated Ringers IV 08/27/24 20:34 75 mls/hr .[id number] [facility] Administration Metronidazole 500 mg in 100 mls @ 100 mls/hr 08/27/24 12:30 Flagyl IV Q8H [facility] Levothyroxine Sodium 50 mcg 08/27/24 07:00 08/27/24 08:09 Levothyroxine 50 Mcg Tablet PO 08/27/25 06:59 50 mcg DAILY@0630 [facility] Administration Ondansetron HCl 4 mg 08/27/24 07:03 Ondansetron 4 Mg/2 Ml Vial IV-PUSH 08/27/25 07:02 Q8H PRN Nausea And Vomiting Oxycodone/Acetaminophen 1 tab 08/27/24 07:03 Oxycodone/Acetaminophen 5-325 Mg Tablet PO Q4H PRN Pain Scale 4 - 7 Pantoprazole Sodium 40 mg 08/27/24 09:00 08/27/24 08:09 Pantoprazole 40 Mg Vial IV-PUSH 08/27/25 08:59 40 mg DAILY [facility] Administration Sodium Chloride 0 ml 08/27/24 14:00 Sodium Chloride 0.9 % 10 Ml Syringe IV-PUSH 08/27/25 13:59 QSHIFT [facility] Sodium Chloride 10 ml 08/27/24 07:03 08/27/24 08:09 Sodium Chloride 0.9 % 10 Ml Vial.Pf INJECTION 08/27/25 07:02 10 ml PRN PRN Administration Dilution Sodium Chloride 10 ml 08/27/24 07:03 Sodium Chloride 0.9 % 10 Ml Syringe IV-PUSH 08/27/25 07:02 PRN PRN Flush A&P - Hospitalist Assessment/Plan (1) Anxiety: (2) Depression: (3) Hypertension: (4) Hypothyroidism: (5) Vitamin D deficiency: (6) Acute appendicitis: (7) Abdominal pain: (8) Hypomagnesemia: Plan Acute appendicitis -Surgery pending this afternoon, n.p.o., IV fluids, symptom management -Leukocytosis, afebrile -Ceftriaxone, metronidazole -CT abdomen pelvis at [place] demonstrated complicated appendicitis Hypomagnesemia -replete, trend Chronic conditions 1. Hypothyroid?levothyroxine 2. Depression?citalopram 3. Hypertension- Losartan, HCTZ, labetolol on hold Dr. Barron Attestation: Patient was personally seen by me on the day of encounter. I reviewed her history and performed [place] elements of exam and formulated the plan of care and confirmed the nurse practitioners note above. Plan of care reflects my direct input. Surgical intervention to occur today Documented By: Winnie Miller APRN 08/11 03/04 1140 Signed By: <Electronically signed by FEI Miller> 08/27/24 1635 <Electronically signed by Marin Barron MD> 08/27/241941 [facility] Work Phone: 1(461) 533-236301-17-2025 [place] [address] Hospitalist Progress Note Signed Patient: Deidre Clemons MR#: [id number] : 1975 Acct:[id number] Age/Sex: 49 / F Adm Date: 5 Loc: Room: [address] [place] [address] Type: ADM IN Attending Dr: Marin Barron MD Copies to: ~ Date of Service: 08/27/2024 Subjective Subjective Narrative: Patient is seen and examined. She is sleepy secondary to pain medication. No visitors present at this time. Endorses right abdomen pain, no nausea. Passinggas. He is aware surgery is planned for 5 PMtoday. Exam Physical Exam Vital Signs: Temp Resp BP Pulse Ox O2 Del Method 98.2 F 17 137/68 97 Room Air 08/27/24 07:30 08/27/24 07:30 08/27/24 07:30 08/27/24 07:30 08/27/24 07:30 Narrative: CONST-sleeping, in bed CARD- RRR no abnormal heart tones PULM- dimin without wheeze or rhonchi, RA ABD-soft, tender right abdomen, NABS, obese EXTREM- no edema BLE, calves nontender Objective Lab Results 08/27/24 09:30 08/27/24 09:34 Meds Allergies and Active Meds Allergies No Known Allergies Allergy (Verified 07/05/24 09:37) Active Meds: Active Medications Generic Name Dose Route Start Last Admin Trade Name Ruben PRN Reason Stop Dose Admin Acetaminophen 650 mg 08/27/24 07:03 Acetaminophen 325 Mg Tablet PO 08/27/25 07:02 Q6HR PRN Pain Scale 1 - 3 or fever Ceftriaxone Sodium 2 gm 08/28/24 04:00 Ceftriaxone 2 Gm/20 Ml Syringe IV-PUSH Q24H [facility] Citalopram Hydrobromide 10 mg 08/27/24 09:00 08/27/24 08:09 Citalopram 10 Mg Tablet PO 08/27/25 08:59 10 mg DAILY [facility] Administration Enoxaparin Sodium 40 mg 08/27/24 10:00 08/27/24 09:14 Enoxaparin 40 Mg/0.4 Ml Syringe SUBCUT 08/27/25 09:59 Not Given DAILY@10 [facility] Hydromorphone HCl 0.5 mg 08/27/24 07:03 08/27/24 08:08 Hydromorphone 0.5 Mg/0.5 Ml Syringe IV-PUSH 0.5 mg Q4H PRN Administration Pain Scale 8 - 10 Lactated Ringer's 1,000 mls @ 75 mls/hr 08/27/24 07:15 08/27/24 08:10 Lactated Ringers IV 08/27/24 20:34 75 mls/hr .[id number] [facility] Administration Metronidazole 500 mg in 100 mls @ 100 mls/hr 08/27/24 12:30 Flagyl IV Q8H [facility] Levothyroxine Sodium 50 mcg 08/27/24 07:00 08/27/24 08:09 Levothyroxine 50 Mcg Tablet PO 08/27/25 06:59 50 mcg DAILY@0630 [facility] Administration Ondansetron HCl 4 mg 08/27/24 07:03 Ondansetron 4 Mg/2 Ml Vial IV-PUSH 08/27/25 07:02 Q8H PRN Nausea And Vomiting Oxycodone/Acetaminophen 1 tab 08/27/24 07:03 Oxycodone/Acetaminophen 5-325 Mg Tablet PO Q4H PRN Pain Scale 4 - 7 Pantoprazole Sodium 40 mg 08/27/24 09:00 08/27/24 08:09 Pantoprazole 40 Mg Vial IV-PUSH 08/27/25 08:59 40 mg DAILY [facility] Administration Sodium Chloride 0 ml 08/27/24 14:00 Sodium Chloride 0.9 % 10 Ml Syringe IV-PUSH 08/27/25 13:59 QSHIFT [facility] Sodium Chloride 10 ml 08/27/24 07:03 08/27/24 08:09 Sodium Chloride 0.9 % 10 Ml Vial.Pf INJECTION 08/27/25 07:02 10 ml PRN PRN Administration Dilution Sodium Chloride 10 ml 08/27/24 07:03 Sodium Chloride 0.9 % 10 Ml Syringe IV-PUSH 08/27/25 07:02 PRN PRN Flush A&P - Hospitalist Assessment/Plan (1) Anxiety: (2) Depression: (3) Hypertension: (4) Hypothyroidism: (5) Vitamin D deficiency: (6) Acute appendicitis: (7) Abdominal pain: (8) Hypomagnesemia: Plan Acute appendicitis -Surgery pending this afternoon, n.p.o., IV fluids, symptom management -Leukocytosis, afebrile -Ceftriaxone, metronidazole -CT abdomen pelvis at [place] demonstrated complicated appendicitis Hypomagnesemia -replete, trend Chronic conditions 1. Hypothyroid?levothyroxine 2. Depression?citalopram 3. Hypertension- Losartan, HCTZ, labetolol on hold Dr. Barron Attestation: Patient was personally seen by me on the day of encounter. I reviewed her history and performed keyelements of exam and formulated the plan of care and confirmed the nurse practitioners note above. Plan of care reflects my direct input. Surgical intervention to occur today Documented By: Winnie Miller APRN 08/11 03/04 1140 Signed By: 08/27/24 1635 08/27/24 194 [facility]01-17-2025 Consult note Author Radha Padilla [facility] Note Date/Time August 27, 2024 1 :08pm [facility] [address] [place] [address] General Surgery Consult Note Signed Patient: Deidre Clemons MR#: [id number] : 1975 Acct:[id number] Age/Sex: 49 / F Adm Date: 5 Loc: Room: [address] [place] [address] Type: ADM IN Attending Dr: Marin Barron MD Copies to: MD Haley Strickland DO Frederick E Doamekpor, MD~ History of Present Illness Date of consult: 08/27/2024 Requesting/Attending Provider: Marin Barron MD History of present illness: Ms. Clemons is a 49 year old female for whom consultation was recommended for acute complicated appendicitis. Pt has a PMH of hypertension and hypothyroidism.Symptoms began yesterday afternoon with umbilical pain that radiated to the flank and right lower quadrant. Pt has associated nausea and vomiting as well aschills. Pt does not have a fever. Pt describes the pain as pressure and stabbing, and rates the pain a 8/10. Pt has taken antacid and tylenol with no relief. Presented to [place] emergency room. He was accepted in transfer here. Pt did get a CT scan which showed complicated appendicitis. Pt has a past surgical history of cholecystectomy. Pt denies taking any blood thinners. Pt is not a smoker. Current labs include: WBC 12.5, Lactate 2..2, total bilirubin 1.5, AST 8, ALT 17, Alk/Phos 90 Review of Systems Constitutional Constitutional: Reports body ache(s), Reports chills, Denies fatigue and Denies fever(s) Eyes Eyes: Denies blurry vision, Denies change in vision, Denies diplopia and Denies eye pain ENT Ears, Nose, Mouth, and Throat: Denies otalgia, Denies epistaxis, Denies hearing loss, Denies nasal congestion, Denies nasal discharge, Denies sore throat and Denies tinnitus Cardiovascular Cardiovascular: Denies chest pain, Denies irregular heart rhythm and Denies palpitations Respiratory Respiratory: Denies cough, Denies dyspnea and Denies wheezing Gastrointestinal Gastrointestinal: Denies change in bowel habits, Denies change in stool character, Denies constipation, Denies hematochezia, Reports nausea and Reports vomiting Genitourinary Genitourinary: Denies difficulty voiding, Denies dysuria and Denies hematuria Musculoskeletal Musculoskeletal: Denies muscle weakness, Denies numbness and Denies tingling Neurologic Neurologic: Denies dizziness, Denies headache(s), Denies tingling and Denies weakness [facility] Medical History (Updated 08/27/24 @ 13:08 by Radha Padilla MD) Vitamin D deficiency Hypothyroidism Hypertension Depression Anxiety History of COVID-19 02/2022 Surgical History Hx of cholecystectomy (April 2012) laparoscopic cholecystectomy, Dr. Siu History of colonoscopy March 2011; Dr. Jade-Normal Family History Father Cancer Legacy FamHx Problem: Diagnosed with Cancer Hypertension Grandparent Legacy FamHx Relation: Maternal Grand Father Grandparent Legacy FamHx Relation: Maternal Grand Mother Grandparent Legacy FamHx Relation: Paternal Grand Father Grandparent Legacy FamHx Relation: Paternal Grand Mother Mother Cancer Legacy FamHx Problem: Diagnosed with Cancer Social History Smoking Status: Never smoker Allergies & Medications Medications and Allergies Allergies No Known Allergies Allergy (Verified 07/05/24 09:37) Home Medications Biotin PO 01/28/24 [History Confirmed 07/05/24] Co q 10 PO 01/28/24 [History Confirmed 07/05/24] Magnesium PO 01/28/24 [History Confirmed 07/05/24] berberine PO 01/28/24 [History Confirmed 07/05/24] cholecalciferol (vitamin D3) 50 mcg (2,000 unit) tablet 50 mcg PO DAILY 01/28/24[History Confirmed 07/05/24] fluticasone propionate 0.05 % topical cream applic topical 01/28/24 [History Confirmed 01/28/24] levothyroxine 50 mcg tablet 50 mcg PO DAILY.AC.BKFAST 01/28/24 [History Confirmed 07/05/24] losartan 50 mg tablet 50 mg PO BID 01/28/24 [History Confirmed 07/05/24] hydrochlorothiazide 12.5 mg tablet 12.5 mg PO BID #180 tabs 03/03/24 [Rx Confirmed 07/05/24] citalopram 10 mg tablet 10 mg PO DAILY 07/05/24 [History Confirmed 07/05/24] clonazepam 0.5 mg tablet (Klonopin) 0.5 mg PO DAILY PRN anxiety 7 days #14 tabs 07/05/24 [Rx Confirmed 07/05/24] labetalol 300 mg tablet 300 mg PO .COMPLEX 07/05/24 [History Confirmed 07/05/24] Active Medications Acetaminophen (Acetaminophen 325 Mg Tablet) 650 mg PO Q6HR PRN PRN Reason: Pain Scale 1 - 3 or fever Stop: 08/27/25 07:02 Ceftriaxone Sodium (Ceftriaxone 2 Gm/20 Ml Syringe) 2 gm IV-PUSH Q24H [facility] Citalopram Hydrobromide (Citalopram 10 Mg Tablet) 10 mg PO DAILY [facility] Stop: 08/27/25 08:59 Last Admin: 08/27/24 08:09 Dose: 10 mg Enoxaparin Sodium (Enoxaparin 40 Mg/0.4 Ml Syringe) 40 mg SUBCUT DAILY@10 [facility] Stop: 08/27/25 09:59 Hydromorphone HCl (Hydromorphone 0.5 Mg/0.5 Ml Syringe) 0.5 mg IV-PUSH Q4H PRN PRN Reason: Pain Scale 8 - 10 Last Admin: 08/27/24 08:08 Dose: 0.5 mg Lactated Ringer's (Lactated Ringers) 1,000 mls @ 75 mls/hr IV .[id number] [facility] Stop: 08/27/24 20:34 Last Admin: 08/27/24 08:10 Dose: 75 mls/hr Metronidazole (Flagyl) 500 mg in 100 mls @ 100 mls/hr IV Q8H [facility] Levothyroxine Sodium (Levothyroxine 50 Mcg Tablet) 50 mcg PO DAILY@0630 [facility] Stop: 08/27/25 06:59 Last Admin: 08/27/24 08:09 Dose: 50 mcg Ondansetron HCl (Ondansetron 4 Mg/2 Ml Vial) 4 mg IV-PUSH Q8H PRN PRN Reason: Nausea And Vomiting Stop: 08/27/25 07:02 Oxycodone/Acetaminophen (Oxycodone/Acetaminophen 5-325 Mg Tablet) 1 tab PO Q4H PRN PRN Reason: Pain Scale 4 - 7 Pantoprazole Sodium (Pantoprazole 40 Mg Vial) 40 mg IV-PUSH DAILY [facility] Stop: 08/27/25 08:59 Last Admin: 08/27/24 08:09 Dose: 40 mg Sodium Chloride (Sodium Chloride 0.9 % 10 Ml Syringe) 0 ml IV-PUSH QSHIFT [facility] Stop: 08/27/25 13:59 Sodium Chloride (Sodium Chloride 0.9 % 10 Ml Vial.Pf) 10 ml INJECTION PRN PRN PRN Reason: Dilution Stop: 08/27/25 07:02 Last Admin: 08/27/24 08:09 Dose: 10 ml Sodium Chloride (Sodium Chloride 0.9 % 10 Ml Syringe) 10 ml IV-PUSH PRN PRN PRN Reason: Flush Stop: 08/27/25 07:02 Exam Const General: cooperative and no acute distress Orientation: alert and awake Eyes Conjunctivae: conjunctivae normal Sclera: sclerae normal Pupils: PERRL Resp Effort & Inspection: normal respiratory effort and able to speak in complete sentences Auscultation: clear to auscultation bilaterally, no rales, no rhonchi and no wheezes Cardio Rate: regular rate Rhythm: regular rhythm Heart Sounds: S1 normal, S2 normal, no gallops, no murmurs and no rubs GI Inspection: non-distended Palpation: soft and tender in the RLQ and in the RUQ Neuro General: patient alert and patient awake Extrem General: no clubbing, cyanosis or edema, no pedal edema and no calf tenderness Results - Gen. Surgery Labs 08/27/24 09:30 08/27/24 09:34 A&P - General Surgery (1) Acute appendicitis: Qualifiers: Acute appendicitis type: with localized peritonitis Appendicitis gangrene presence: without gangrene Appendicitis perforation presence: without perforation Appendicitis abscess presence: without abscess Qualified Code(s): K35.30 - Acute appendicitis with localized peritonitis, without perforation or gangrene (2) Abdominal pain: Qualifiers: Abdominal location: right lower quadrant Qualified Code(s): R10.31 - Right lower quadrant pain (3) BMI 50.0-59.9, adult: Plan Plan will be to perform laparoscopic appendectomy. The procedure, benefits, risks including risks of bleeding, infection, need for open surgery discussed. Documented By: Radha Padilla MD 08/27/24 0812 Signed By: <Electronically signed by MD Radha Padilla> 08/27/24 130 [facility] Work Phone: 1(389) 914-657201-17-2025 [place] [address] General Surgery Consult Note Signed Patient: Deidre Clemons MR#: [id number] : 1975 Acct:[id number] Age/Sex: 49 / F Adm Date: 5 Loc: Room: [address] [place] [address] Type: ADM IN Attending Dr: Marin Barron MD Copies to: MD Haley Strickland,DO Marin Barron MD~ History of Present Illness Date of consult: 08/27/2024 Requesting/Attending Provider: Marin Barron MD History of present illness: Ms. Clemons is a 49 year old female for whom consultation was recommended for acute complicated appendicitis. Pt has a PMH of hypertension and hypothyroidism.Symptoms began yesterday afternoon with umbilical pain that radiated to the flank and right lower quadrant. Pt has associated nausea and vomiting as well aschills. Pt does not have a fever. Pt describes the pain as pressure and stabbing, and rates the pain a 8/10. Pt has taken antacid and tylenol with no relief. Presented to [place] emergency room. He was accepted in transfer here. Pt did get a CT scan which showed complicated appendicitis. Pt has a past surgical history of cholecystectomy. Pt denies taking any blood thinners. Pt is not a smoker. Current labs include: WBC 12.5, Lactate 2..2, total bilirubin 1.5, AST 8, ALT 17, Alk/Phos 90 Review of Systems Constitutional Constitutional: Reports body ache(s), Reports chills, Denies fatigue and Denies fever(s) Eyes Eyes: Denies blurry vision, Denies change in vision, Denies diplopia and Denies eye pain ENT Ears, Nose, Mouth, and Throat: Denies otalgia, Denies epistaxis, Denies hearing loss, Denies nasal congestion, Denies nasal discharge, Denies sore throat and Denies tinnitus Cardiovascular Cardiovascular: Denies chest pain, Denies irregular heart rhythm and Denies palpitations Respiratory Respiratory: Denies cough, Denies dyspnea and Denies wheezing Gastrointestinal Gastrointestinal: Denies change in bowel habits, Denies change in stool character, Denies constipation, Denies hematochezia, Reports nausea and Reports vomiting Genitourinary Genitourinary: Denies difficulty voiding, Denies dysuria and Denies hematuria Musculoskeletal Musculoskeletal: Denies muscle weakness, Denies numbness and Denies tingling Neurologic Neurologic: Denies dizziness, Denies headache(s), Denies tingling and Denies weakness [facility] Medical History (Updated 08/27/24 @ 13:08 by Radha Padilla MD) Vitamin D deficiency Hypothyroidism Hypertension Depression Anxiety History of COVID-19 02/2022 Surgical History Hx of cholecystectomy (April 2012) laparoscopic cholecystectomy, Dr. Siu History of colonoscopy March 2011; Dr. Jade-Normal Family History Father Cancer Legacy FamHx Problem: Diagnosed with Cancer Hypertension Grandparent Legacy FamHx Relation: Maternal Grand Father Grandparent Legacy FamHx Relation: Maternal Grand Mother Grandparent Legacy FamHx Relation: Paternal Grand Father Grandparent Legacy FamHx Relation: Paternal Grand Mother Mother Cancer Legacy FamHx Problem: Diagnosed with Cancer Social History Smoking Status: Never smoker Allergies & Medications Medications and Allergies Allergies No Known Allergies Allergy (Verified 07/05/24 09:37) Home Medications Biotin PO 01/28/24 [History Confirmed 07/05/24] Co q 10 PO 01/28/24 [History Confirmed 07/05/24] Magnesium PO 01/28/24 [History Confirmed 07/05/24] berberine PO 01/28/24 [History Confirmed 07/05/24] cholecalciferol (vitamin D3) 50 mcg (2,000 unit) tablet 50 mcg PO DAILY 01/28/24[History Confirmed 07/05/24] fluticasone propionate 0.05 % topical cream applic topical 01/28/24 [History Confirmed 01/28/24] levothyroxine 50 mcg tablet 50 mcg PO DAILY.AC.BKFAST 01/28/24 [History Confirmed 07/05/24] losartan 50 mg tablet 50 mg PO BID 01/28/24 [History Confirmed 07/05/24] hydrochlorothiazide 12.5 mg tablet 12.5 mg PO BID #180 tabs 03/03/24 [Rx Confirmed 07/05/24] citalopram 10 mg tablet 10 mg PO DAILY 07/05/24 [History Confirmed 07/05/24] clonazepam 0.5 mg tablet (Klonopin) 0.5 mg PO DAILY PRN anxiety 7 days #14 tabs 07/05/24 [Rx Confirmed 07/05/24] labetalol 300 mg tablet 300 mg PO .COMPLEX 07/05/24 [History Confirmed 07/05/24] Active Medications Acetaminophen (Acetaminophen 325 Mg Tablet) 650 mg PO Q6HR PRN PRN Reason: Pain Scale 1 - 3 or fever Stop: 08/27/25 07:02 Ceftriaxone Sodium (Ceftriaxone 2 Gm/20 Ml Syringe) 2 gm IV-PUSH Q24H [facility] Citalopram Hydrobromide (Citalopram 10 Mg Tablet) 10 mg PO DAILY [facility] Stop: 08/27/25 08:59 Last Admin: 08/27/24 08:09 Dose: 10 mg Enoxaparin Sodium (Enoxaparin 40 Mg/0.4 Ml Syringe) 40 mg SUBCUT DAILY@10 [facility] Stop: 08/27/25 09:59 Hydromorphone HCl (Hydromorphone 0.5 Mg/0.5 Ml Syringe) 0.5 mg IV-PUSH Q4H PRN PRN Reason: Pain Scale 8 - 10 Last Admin: 08/27/24 08:08 Dose: 0.5 mg Lactated Ringer's (Lactated Ringers) 1,000 mls @ 75 mls/hr IV .[id number] [facility] Stop: 08/27/24 20:34 Last Admin: 08/27/24 08:10 Dose: 75 mls/hr Metronidazole (Flagyl) 500 mg in 100 mls @ 100 mls/hr IV Q8H [facility] Levothyroxine Sodium (Levothyroxine 50 Mcg Tablet) 50 mcg PO DAILY@0630 [facility] Stop: 08/27/25 06:59 Last Admin: 08/27/24 08:09 Dose: 50 mcg Ondansetron HCl (Ondansetron 4 Mg/2 Ml Vial) 4 mg IV-PUSH Q8H PRN PRN Reason: Nausea And Vomiting Stop: 08/27/25 07:02 Oxycodone/Acetaminophen (Oxycodone/Acetaminophen 5-325 Mg Tablet) 1 tab PO Q4H PRN PRN Reason: Pain Scale 4 - 7 Pantoprazole Sodium (Pantoprazole 40 Mg Vial) 40 mg IV-PUSH DAILY [facility] Stop: 08/27/25 08:59 Last Admin: 08/27/24 08:09 Dose: 40 mg Sodium Chloride (Sodium Chloride 0.9 % 10 Ml Syringe) 0 ml IV-PUSH QSHIFT [facility] Stop: 08/27/25 13:59 Sodium Chloride (Sodium Chloride 0.9 % 10 Ml Vial.Pf) 10 ml INJECTION PRN PRN PRN Reason: Dilution Stop: 08/27/25 07:02 Last Admin: 08/27/24 08:09 Dose: 10 ml Sodium Chloride (Sodium Chloride 0.9 % 10 Ml Syringe) 10 ml IV-PUSH PRN PRN PRN Reason: Flush Stop: 08/27/25 07:02 Exam Const General: cooperative and no acute distress Orientation: alert and awake Eyes Conjunctivae: conjunctivae normal Sclera: sclerae normal Pupils: PERRL Resp Effort & Inspection: normal respiratory effort and able to speak in complete sentences Auscultation: clear to auscultation bilaterally, no rales, no rhonchi and no wheezes Cardio Rate: regular rate Rhythm: regular rhythm Heart Sounds: S1 normal, S2 normal, no gallops, no murmurs and no rubs GI Inspection: non-distended Palpation: soft and tender in the RLQ and in the RUQ Neuro General: patient alert and patient awake Extrem General: no clubbing, cyanosis or edema, no pedal edema and no calf tenderness Results - Gen. Surgery Labs 08/27/24 09:30 08/27/24 09:34 A&P - General Surgery (1) Acute appendicitis: Qualifiers: Acute appendicitis type: with localized peritonitis Appendicitis gangrene presence: without gangrene Appendicitis perforation presence: without perforation Appendicitis abscess presence: without abscess Qualified Code(s): K35.30 - Acute appendicitis with localized peritonitis, without perforation or gangrene (2) Abdominal pain: Qualifiers: Abdominal location: right lower quadrant Qualified Code(s): R10.31 - Right lower quadrant pain (3) BMI 50.0-59.9, adult: Plan Plan will be to perform laparoscopic appendectomy. The procedure, benefits, risks including risks of bleeding, infection, need for open surgery discussed. Documented By: Radha Padilla MD 08/27/24811 Signed By: 08/27/24 1308 [facility]01-17-2025 History and physical note Author Justin Horton [facility] Note Date/Time August 27, 2024 7 :16am [facility] [address] [place] [address] Hospitalist H&P Signed Patient: Deidre Clemons MR#: [id number] : 1975 Acct:[id number] Age/Sex: 49 / F Adm Date: 5 Loc: Room: [address] [place] [address] Type: ADM IN Attending Dr: Justin Horton MD Copies to: MD Haley Zuñiga,DO~ HPI DATE OF EXAMINATION: 08/27/24 CHIEF COMPLAINT: Abdominal pain HISTORY OF PRESENT ILLNESS: This is a 49-year-old female with significant past medical history of hypertension and hypothyroidism presented to [place] ER with chief complaints of pain in the umbilical region which migrated to flank and to right lower quadrant since yesterday. Patient took some antacid and Tylenol which did not help with her pain. Her pain got worse. So she presented to ER. In the ER herWBC count was elevated to 12.5 with lactate of 2.2. CT scan of the abdomen showed complicated appendicitis. Patient got ceftriaxone and Flagyl and some pain medications there. She was transferred to [facility] for the surgery. Dr. Padilla aware. Review of Systems Review of Systems All other systems reviewed & are negative unless noted below or in HPI [facility] Medical History (Updated 08/27/24 @ 07:15 by Justin Horton MD) Vitamin D deficiency Hypothyroidism Hypertension Depression Anxiety History of COVID-19 02/2022 Surgical History Hx of cholecystectomy (April 2012) laparoscopic cholecystectomy, Dr. Siu History of colonoscopy March 2011; Dr. Jade-Normal Family History Father Cancer Legacy FamHx Problem: Diagnosed with Cancer Hypertension Grandparent Legacy FamHx Relation: Maternal Grand Father Grandparent Legacy FamHx Relation: Maternal Grand Mother Grandparent Legacy FamHx Relation: Paternal Grand Father Grandparent Legacy FamHx Relation: Paternal Grand Mother Mother Cancer Legacy FamHx Problem: Diagnosed with Cancer Social History Smoking Status: Never smoker Meds Medications and Allergies Allergies No Known Allergies Allergy (Verified 07/05/24 09:37) Home Medications Biotin PO 01/28/24 [History Confirmed 07/05/24] Co q 10 PO 01/28/24 [History Confirmed 07/05/24] Magnesium PO 01/28/24 [History Confirmed 07/05/24] berberine PO 01/28/24 [History Confirmed 07/05/24] cholecalciferol (vitamin D3) 50 mcg (2,000 unit) tablet 50 mcg PO DAILY 01/28/24[History Confirmed 07/05/24] fluticasone propionate 0.05 % topical cream applic topical 01/28/24 [History Confirmed 01/28/24] levothyroxine 50 mcg tablet 50 mcg PO DAILY.AC.BKFAST 01/28/24 [History Confirmed 07/05/24] losartan 50 mg tablet 50 mg PO BID 01/28/24 [History Confirmed 07/05/24] hydrochlorothiazide 12.5 mg tablet 12.5 mg PO BID #180 tabs 03/03/24 [Rx Confirmed 07/05/24] citalopram 10 mg tablet 10 mg PO DAILY 07/05/24 [History Confirmed 07/05/24] clonazepam 0.5 mg tablet (Klonopin) 0.5 mg PO DAILY PRN anxiety 7 days #14 tabs 07/05/24 [Rx Confirmed 07/05/24] labetalol 300 mg tablet 300 mg PO .COMPLEX 07/05/24 [History Confirmed 07/05/24] Exam Physical Exam Narrative: General: Awake alert, no acute distress HEENT: head atraumatic, normocephalic, moist mucous membranes Neck: supple no masses, no lymphadenopathy CVS: regular rate and rhythm, no murmurs or gallops Respiratory: clear to auscultation bilaterally, no wheezing or crackles, symmetric expansion GI: Right lower quadrant and umbilical region tenderness with guarding. Extremity: moves all extremities, no restrictions of movements, no calf tenderness Neuro: AOx3, CN II-VII intact. Moves all extremities in all planes of motion. Skin: intact no rashes or lesions Assessment & Plan Assessment/Plan (1) Anxiety: (2) Depression: (3) Hypertension: (4) Hypothyroidism: (5) Vitamin D deficiency: (6) Acute appendicitis: (7) Abdominal pain: Plan This is a 49-year-old female with significant past medical history of hypertension and hypothyroidism presented to [place] [facility] with chief complaints of pain in the umbilical region which migrated to flank and to right lower quadrant since yesterday. Patient took some antacid and Tylenol which did not help with her pain. Her pain got worse. So she presented to ER. In the ER herWBC count was elevated to 12.5 with lactate of 2.2. CT scan of the abdomen showed complicated appendicitis. Patient got ceftriaxone and Flagyl and some pain medications there. She was transferred to [facility] for the surgery. Dr. Padilla aware. Plan: -Admit to floor -Continue on ceftriaxone and metronidazole -General Surgery on consult -N.p.o. except meds -Continue on maintenance IV fluid -Follow-up morning labs -Continue on POA medication levothyroxine, citalopram -Pain medication as needed -DVT prophylaxis with Lovenox -Full code-discussed with the patient IP vs OBS Justification Based on differential dx, clinical care plan, and risk of adverse events, if untreated, in my clinical judgement this patient requires an acute care setting as: INPATIENT because of an expectation of an over 2 midnight stay. Estimated length of stay (# of days): 3 Documented By: Justin Horton MD 08/27/24 0712 Signed By: <Electronically signed by Justin Horton MD> 08/27/24 0716 [facility] Work Phone: 1(104) 247-993501-17-2025 Evaluation note* Diagnosis Onset Date Resolution Status Admit Date Anxiety acute August 27, 2024 6:52am BMI 50.0-59.9, adult acute 2024 6:52am Depression acute August 27, 2024 6:52am Hypertension acute August 6:52am Hypothyroidism acute August 272024 6:52am Vitamin D deficiency acute 2024 6:52am Abdominal pain resolved August 272024 6:52am Acute appendicitis resolved 2024 6:52am Hypomagnesemia resolved August 272024 6:52am Anemia acute November 05 10:34am Anxiety acute November 05 10:34am Depression acute November 05 10:34am Hyperglycemia acute November 05, 2024 10:34am Hypertension acute November 05, 2024 10:34am Hypothyroidism acute October 10:34am Screening mammogram for [facility] cancer acute November 05, 2024 10:34am Vitamin D deficiency acute 2024 10:34am [facility] Work Phone: 1(797) 539-647901-17-2025 [place] [address] Hospitalist H&P Signed Patient: Deidre Clemons MR#: [id number] : 1975 Acct:[id number] Age/Sex: 49 / F Adm Date: 5 Loc: Room: [address] [place] [address] Type: ADM IN Attending Dr: Justin Horton MD Copies to: MD Haley Zuñiga,DO~ HPI DATE OF EXAMINATION: 08/27/24 CHIEF COMPLAINT: Abdominal pain HISTORY OF PRESENT ILLNESS: This is a 49-year-old female with significant past medical history of hypertension and hypothyroidism presented to [place] ER with chief complaints of pain in the umbilical region which migrated to flank and to right lower quadrant since yesterday. Patient took some antacid and Tylenol which did not help with her pain. Her pain got worse. So she presented to ER. In the ER herWBC count was elevated to 12.5 with lactate of 2.2. CT scan of the abdomen showed complicated appendicitis. Patient got ceftriaxone and Flagyl and some pain medications there. She was transferred to [facility] for the surgery. Dr. Padilla aware. Review of Systems Review of Systems All other systems reviewed & are negative unless noted below or in HPI [facility] Medical History (Updated 08/27/24 @ 07:15 by Justin Horton MD) Vitamin D deficiency Hypothyroidism Hypertension Depression Anxiety History of COVID-19 02/2022 Surgical History Hx of cholecystectomy (April 2012) laparoscopic cholecystectomy, Dr. Siu History of colonoscopy March 2011; Dr. Jade-Normal Family History Father Cancer Legacy FamHx Problem: Diagnosed with Cancer Hypertension Grandparent Legacy FamHx Relation: Maternal Grand Father Grandparent Legacy FamHx Relation: Maternal Grand Mother Grandparent Legacy FamHx Relation: Paternal Grand Father Grandparent Legacy FamHx Relation: Paternal Grand Mother Mother Cancer Legacy FamHx Problem: Diagnosed with Cancer Social History Smoking Status: Never smoker Meds Medications and Allergies Allergies No Known Allergies Allergy (Verified 07/05/24 09:37) Home Medications Biotin PO 01/28/24 [History Confirmed 07/05/24] Co q 10 PO 01/28/24 [History Confirmed 07/05/24] Magnesium PO 01/28/24 [History Confirmed 07/05/24] berberine PO 01/28/24 [History Confirmed 07/05/24] cholecalciferol (vitamin D3) 50 mcg (2,000 unit) tablet 50 mcg PO DAILY 01/28/24[History Confirmed 07/05/24] fluticasone propionate 0.05 % topical cream applic topical 01/28/24 [History Confirmed 01/28/24] levothyroxine 50 mcg tablet 50 mcg PO DAILY.AC.BKFAST 01/28/24 [History Confirmed 07/05/24] losartan 50 mg tablet 50 mg PO BID 01/28/24 [History Confirmed 07/05/24] hydrochlorothiazide 12.5 mg tablet 12.5 mg PO BID #180 tabs 03/03/24 [Rx Confirmed 07/05/24] citalopram 10 mg tablet 10 mg PO DAILY 07/05/24 [History Confirmed 07/05/24] clonazepam 0.5 mg tablet (Klonopin) 0.5 mg PO DAILY PRN anxiety 7 days #14 tabs 07/05/24 [Rx Confirmed 07/05/24] labetalol 300 mg tablet 300 mg PO .COMPLEX 07/05/24 [History Confirmed 07/05/24] Exam Physical Exam Narrative: General: Awake alert, no acute distress HEENT: head atraumatic, normocephalic, moist mucous membranes Neck: supple no masses, no lymphadenopathy CVS: regular rate and rhythm, no murmurs or gallops Respiratory: clear to auscultation bilaterally, no wheezing or crackles, symmetric expansion GI: Right lower quadrant and umbilical region tenderness with guarding. Extremity: moves all extremities, no restrictions of movements, no calf tenderness Neuro: AOx3, CN II-VII intact. Moves all extremities in all planes of motion. Skin: intact no rashes or lesions Assessment & Plan Assessment/Plan (1) Anxiety: (2) Depression: (3) Hypertension: (4) Hypothyroidism: (5) Vitamin D deficiency: (6) Acute appendicitis: (7) Abdominal pain: Plan This is a 49-year-old female with significant past medical history of hypertension and hypothyroidism presented to [place] ER with chief complaints of pain in the umbilical region which migrated to flank and to right lower quadrant since yesterday. Patient took some antacid and Tylenol which did not help with her pain. Her pain got worse. So she presented to ER. In the ER herWBC count was elevated to 12.5 with lactate of 2.2. CT scan of the abdomen showed complicated appendicitis. Patient got ceftriaxone and Flagyl and some pain medications there. She was transferred to [facility] for the surgery. Dr. Padilla aware. Plan: -Admit to floor -Continue on ceftriaxone and metronidazole -General Surgery on consult -N.p.o. except meds -Continue on maintenance IV fluid -Follow-up morning labs -Continue on POA medication levothyroxine, citalopram -Pain medication as needed -DVT prophylaxis with Lovenox -Full code-discussed with the patient IP vs OBS Justification Based on differential dx, clinical care plan, and risk of adverse events, if untreated, in my clinical judgement this patient requires an acute care setting as: INPATIENT because of an expectation ofan over 2 midnight stay. Estimated length of stay (# of days): 3 Documented By: Justin Horton MD 08/27/24711 Signed By: 08/27/24 0716 [facility]11-25-2024 Evaluation note* Author Haley Valdivia [facility] Authored July 05, 2024 8:22pm [phone]. I performed the a tracy HPI, ROS, and Examination. I formulated and dictated the treatment plan and was present for entire encounter. Haley Valdivia D.O. [facility] Work Phone: 1(343) 255-266602-06-2024 Evaluation note* Encounter Date Diagnosis Assessment Notes Treatment Notes Treatment Clinical Notes Sep, Hypothyroidism (ICD-10 - E03.9) [employer] [facility] Other 11-17-2023 Evaluation note* Encounter Date Diagnosis Assessment Notes Treatment Notes Treatment Clinical Notes Jun, Severe obesity (BMI >= 40) (ICD-10 - E66.01) [employer] [facility] [facility] Other 09-11-2023 Evaluation note* Encounter Date Diagnosis Assessment Notes Treatment Notes Treatment Clinical Notes Apr, Hypothyroidism (ICD-10 - E03.9) [facility] [employer] [facility] Other 08-17-2023 Evaluation note* Encounter Date Diagnosis Assessment Notes Treatment Notes Treatment Clinical Notes Mar, Hypertension (ICD-10 - I10) Blood pressure is controlled. Continue with above medications daily as directed. Mar, Wellness examination (ICD-10 - Z00.00) Discussed cholesterol results with patient today. Total is 143. HDL is 51. LDL is 71. Triglycerides are 103. VLDL is 21. Encouraged her to continue to monitor her intake of carbs and sugars. Stay active. Mar, Hyperglycemia (ICD-10 - R73.9) Discussed blood sugar results with patient today. Glucose is 132. HgA1C is 5.5 which is normal. Continue to monitor intake of carbs and sugars. Stay active. Mar, Hypothyroidism (ICD-10 - E03.9) Discussed thyroid results with her today. TSH is 2.950. Free T3 is 3.4. Free T4 is 1.43. I would like her to continue with the same dose of thyroid medication. Mar, Depression (ICD-10 - F32.9) Continue with above medication daily as directed. Mar, Encounter for long-term (current) use of medications (ICD-10 - Z79.899) Mar, Anemia (ICD-10 - D64.9) Her Ferritin is 36. HGB is 12.3. Iron is 80. She is not anemic at this time. Mar, Vitamin D deficiency (ICD-10 - E55.9) Her Vitamin D level is 23. She does not take her vitamin D regularly. I did recommend that she take the vitamin D daily as directed. She will do this instead of having the once weekly prescription. Mar, Rash and nonspecific skin eruption (ICD-10 - R21) When she uses the cream on the area that will come and go it does resolve. She does not use it in the same spot. I did recommend that she not use this for longer than 14 days and do not use this on the face. Will provide her with a refill today. Mar, Breast cancer screening (ICD-10 - Z12.31) Provided her with an order to have a bilateral mammogram done. [facility] Other 08-10-2023 Evaluation note* Encounter Date Diagnosis Assessment Notes Treatment Notes Treatment Clinical Notes Mar, Hypertension (ICD-10 - I10) [facility] Other 06-07-2023 Evaluation note* Encounter Date Diagnosis Assessment Notes Treatment Notes Treatment Clinical Notes Jan, Hypertension (ICD-10 - I10) [facility] Other 04-04-2023 Evaluation note* Encounter Date Diagnosis Assessment Notes Treatment Notes Treatment Clinical Notes Nov, Hypertension (ICD-10 - I10) [facility] Other 03-07-2023 Evaluation note* Encounter Date Diagnosis Assessment Notes Treatment Notes Treatment Clinical Notes Oct, Cough (ICD-10 - R05.9) Oct, Acute sinusitis, recurrence not specified, unspecified location (ICD-10 - J01.90) Drink plenty fluids, get plenty of rest. Use the Flonase nasal inhaler as prescribed and your symptoms improved. Take Tylenol or Motrin for aches pains or fevers. Consider taking Zyrtec for sneezing and allergy symptoms. Follow-up with your family physician if no improvement in 2 to 3 days, Sinusitis home care material was printed [facility] Other 11-01-2022 Evaluation note* Encounter Date Diagnosis Assessment Notes Treatment Notes Treatment Clinical Notes Jun, Hypertension (ICD-10 - I10) Her blood pressure is controlled, continue with above medication daily as directed. Jun, Wellness examination (ICD-10 - Z00.00) She is here for a wellness exam today. Her total cholesterol is 150. HDL is 52. LDL is 77. Triglycerides are 104. VLDL is 21. Again, encouraged her to watch her intake of carbs and sugars. Stay active. Will continue to monitor. Jun, Encounter for long-term (current) use of medications (ICD-10 - Z79.899) Jun, Hyperglycemia (ICD-10 - R73.9) Discussed blood sugar results with patient today. Glucose is 112. HgA1C is 5.7. Continue to monitor intake of carbs and sugars. Stay active as tolerated. Jun, Hypothyroidism (ICD-10 - E03.9) Discussed thyroid results with patient today. TSH is 1.280. Free T3 is 3.1. Free T4 is 1.19. Jun, Depression (ICD-10 - F32.9) She ran out of generic Wellbutrin and increased her Celexa to 20 MG and feels good, she does not feel she needs to make any changes at this time. She is to keep me posted if she feels any changes need to be made. Jun, Anemia (ICD-10 - D64.9) Her HGB is 12.3. Iron is 68. Ferritin is 35. She is not currently taking Iron. Jun, Weight gain (ICD-10 - R63.5) Jun, Vitamin D deficiency (ICD-10 - E55.9) Her Vitamin D is 23. I did recommend she begin taking a Vitamin D 2000 IU daily. Jun, Anxiety (ICD-10 - F41.9) I did advise her that if she is going to continue with the Klonopin she has to be seen every three months. She has not taken it in a few months and does not feel she needs to take them so the medicine will be discontinued. If she ever needs to take the medicine again she should let me know and she will have to be seen every three months. Side effects/risks/benef its of medication were reviewed. [facility] Other 07-28-2022 Evaluation note* Encounter Date Diagnosis Assessment Notes Treatment Notes Treatment Clinical Notes Feb, Sore throat (ICD-10 - J02.9) Feb, COVID-19 (ICD-10 - U07.1) Rapid COVID test performed in office today. Advised patient that test was positive. Rapid Strep test negative. Instructed patient to isolate per CDC guidelines for 5 days from symptom onset, mask 5 days following. May return to work/activities outside home after isolation period as long as symptoms are improving and has been afebrile for 24 hours without use of antipyretic. Advised patient that treatment of COVID is with viral supportive care, OTC cold medications as directed, Tylenol/Motrin as needed for body aches/fever. Increase fluids and rest. Encouraged use of cool mist humidifier. Follow-up with PCP to advise of positive result and further management. Immediate eval for SOB, difficulty, chest pain, fevers that do not break with antipyretic or any other concerning symptoms as reviewed on patient education handout. Patient verbalizes understanding and is agreeable to treatment plan. Patient left in stable condition [facility] Other 07-05-2022 Evaluation note* Encounter Date Diagnosis Assessment Notes Treatment Notes Treatment Clinical Notes Feb, Hypertension (ICD-10 - I10) [facility] Other 05-19-2022 Evaluation note* Encounter Date Diagnosis Assessment Notes Treatment Notes Treatment Clinical Notes December, Anxiety (ICD-10 - F41.9) December, Hypertension (ICD-10 - I10) [facility] Other 04-20-2022 Evaluation note* Encounter Date Diagnosis Assessment Notes Treatment Notes Treatment Clinical Notes Nov, Depression (ICD-10 - F32.9) [facility] Other 03-25-2022 Evaluation note* Encounter Date Diagnosis Assessment Notes Treatment Notes Treatment Clinical Notes Oct, Depression (ICD-10 - F32.9) She does continue to use and benefit from the above medications. She was unable to afford to see a psychiatrist. She will continue with above and take the Klonopin as needed. Side effects/risks/benefi ts of medication were reviewed. Oct, Anxiety (ICD-10 - F41.9) She voices that there are weeks she does not take the Klonopin and never days she takes it twice a day, but she does use it if needed and it does work well for her when she needs it. An OARRS report was reviewed no discrepancies noted. Side effects/risks/benefi ts of medication were reviewed. She can call for refills in between visits but needs to be seen every three months for evaluation. Oct, Weight loss (ICD-10 - R63.4) She has lost 13 pounds, she voices that she has been trying to lose weight. Since she started her new job she has made dietary changes and feels this has helped her to lose weight. She is trying an insulin resistance diet and trying to avoid carbs. She eats around her bus schedule (work schedule) and all together since Sep 2019 she is down 22.5 pounds. She is encouraged to continue with what she is doing as this is working well. Oct, Other She has not colette en her blood pressure medication yet today. [facility] Other 03-11-2022 Evaluation note* Encounter Date Diagnosis Assessment Notes Treatment Notes Treatment Clinical Notes Oct, Anxiety (ICD-10 - F41.9) [facility] Other 01-24-2022 Evaluation note* Encounter Date Diagnosis Assessment Notes Treatment Notes Treatment Clinical Notes Aug, Depression (ICD-10 - F32.9) [facility] Other 12-23-2021 Evaluation note* Encounter Date Diagnosis Assessment Notes Treatment Notes Treatment Clinical Notes Jul, Depression (ICD-10 - F32.9) [facility] Other 12-17-2021 Evaluation note* Encounter Date Diagnosis Assessment Notes Treatment Notes Treatment Clinical Notes Jul, Depression (ICD-10 - F32.9) She voices that she does not feel hopeless but does have days when she is manic, she may have days when she gets a lot done for up to two days then it goes away. She thought the Wellbutrin worked at first but now does not feel it is working. She is not angry anymore but does not feel motivated. We discussed Effexor but that this is difficult to come off of if she does not like it. She voices that she does cry all the time, it has gotten worse since she was seen last. Her yells at her because she is always crying. This makes her feel weak, and she does not understand why she cries all the time. She is also fatigued which is frustrating for her. She has no thoughts of harming herself or others. I discussed her seeing a psychiatrist for evaluation. She saw one after her daughter was born but eventually stopped going. I did recommend that she call to be scheduled again, she voices that she will do this. She is starting a new job which will help to get her out of the house and she expects this to help her feel better. Tonight she is to take 1/2 Citalopram (20 MG) through 07-31-21. She can stay on the Wellbutrin. She may feel more motivated with this change. I want her to call me next week with how she is doing, if she is doing better then we may or may not continue with Citalopram 20 MG and increase her Wellbutrin XL to 300 MG daily. If she is not doing well then we will switch to Effexor. Jul, Anxiety (ICD-10 - F41.9) An OARRS report was reviewed no discrepancies noted. She does continue to use and benefit from the above medication. Frequent appointments needed due to addiction potential of medication. Side effects/risks/benefi ts of medication were reviewed. [facility] Other 11-22-2021 Evaluation note* Encounter Date Diagnosis Assessment Notes Treatment Notes Treatment Clinical Notes Jun, Depression (ICD-10 - F32.9) [facility] Other 11-17-2021 Evaluation note* Encounter Date Diagnosis Assessment Notes Treatment Notes Treatment Clinical Notes Jun, Depression (ICD-10 - F32.9) [facility] Other 09-22-2021 Evaluation note* Encounter Date Diagnosis Assessment Notes Treatment Notes Treatment Clinical Notes Apr, Hypertension (ICD-10 - I10) Blood pressure is controlled. Continue with above medications. She is concerned that [facility] use of HCTZ is hard on the kidneys. I did explain to her that her kidney studies are good. Blood pressure needs to be under good control or it can hurt the kidneys. Side effects/risks/benef its of the HCTZ and Labetalol were reviewed. She is comfortable continuing to take the medications. If we ever see her kidney studies turn abnormal then we would discuss stopping the medication. If she has life changing weight loss (30-40 pounds) and her blood pressure continues to stay good then we can discuss coming off medication(s). She will continue with her lifestyle changes. Apr, Hypothyroidism (ICD-10 - E03.9) Discussed thyroid results with patient today. TSH is 2.17. Free T3 is 3.00. Free T4 is 0.80. I would like her to continue with the same dose of Levothyroxine. Apr, Depression (ICD-10 - F32.9) In the winter she was using Celexa 40 MG and in the summer she tried to cut the tablet in half (20 MG) but it did not help so she returned to taking a 40 MG tablet daily. I did explain to her that the highest dose I can prescribe is 40 MG daily. She feels that her body has gotten used to this. She does take the Klonopin as needed. An OARRS report was reviewed, no discrepancies noted. Frequent appointments needed due to addiction potential of medication. We discussed other medications that can be used to treat depression. She voices that little things become big things and she does not like this. She saw Dr. Bower in the past but was never diagnosed with biopolar depression. She has days where she feels manic and feels she needs to get certain things done but these episodes do not last days. She uses Melatonin nightly to help her sleep. She admits she snaps often and then feels guilty and begins to cry. I did discuss adding Wellbutrin in the morning to see if her symptoms improve, we would move Celexa to the evening. I did explain to her how the Wellbutrin works in the body. Or we can stop the Celexa and start her on Effexor, explained to her how the Effexor works in the body, but explained that this medication is difficult to come off of. I can refer her to a psychiatrist to rule out bipolar disorder. She would like to try the Wellbutrin and see how she does with this in addition to the Celexa. She has never had a seizure. Guidance is given on how to take the Wellbutrin. I asked her to call me by one month with how she is doing, if at that time she feels the medication is doing well we will continue with it, if not I will have her return to the office to discuss other medication. Apr, Hyperglycemia (ICD-10 - R73.9) Discussed blood sugar results with patient today. Glucose is 108. HgA1C is 5.5 which is up from 5.3 but is still normal. Apr, Encounter for long-term (current) use of medications (ICD-10 - Z79.899) Apr, Weight loss (ICD-10 - R63.4) She has lost two pounds. She has been busy caring for her and has not felt like eating. Continue to monitor intake of carbs and sugars. Stay active as tolerated. She voices that she has been reading a book on insulin resistance and is trying to work on lifestyle changes to help lose weight and help overall health. Apr, Anemia (ICD-10 - D64.9) Her Iron is 65. Ferritin is 20. She is not anemic at this time. She is not taking any Iron right now. Apr, Vitamin D deficiency (ICD-10 - E55.9) Her Vitamin D level is 24.3. Her level is improving. She voices that she was out in the sun this summer. I did recommend that she begin taking Vitamin D 2000 IU daily. Apr, Proteinuria (ICD-10 - R80.9) Apr, Encounter for screening mammogram for breast cancer (ICD-10 - Z12.31) Provided her with an order to have a bilateral mammogram done. Apr, Wellness examination (ICD-10 - Z00.00) for lab order only Discussed cholesterol results with her today. Her total cholesterol is 160. HDL is 52. LDL is 88. Triglycerides are 98. Readings are at goal. [facility] Other 08-01-2011 History general Narrative - Reported* Type Description Date Medical History Colonoscopy March 2011; Dr. Gabriela aldrich-Normal Medical History CT Chest 2009; Pleurisy Medical History Abdominal Series X-R ay 04-02-12; [facility] Medical History Gallbladder Ultrasou nd 04-02-12; [facility] Medical History 2012 Missed AB Medical History ECHOcardiogram - [facility] C trivial tricuspid and mitral regurgitation, inferior vena cava mildly dilated Medical History Post Dr Short Medical History hypertension Medical History Hypothyroidism Surgical History Bilateral Tubes in Ears as a Ch ild Surgical History T&A as a child Surgical History laparoscopic cholecystectomy, D r. Laffay April 2012 Surgical History childbirth 03/01/15 Hospitalization History Childbirth 2009 Hospitalization History childibirth 03/01/15 [facility] Other 08-01-2011 History general Narrative - Reported* Type Description Date Medical History Colonoscopy March 2011; Dr. Gabriela aldrich-Normal Medical History CT Chest 2009; Pleurisy Medical History Abdominal Series X-R ay 04-02-12; [facility] Medical History Gallbladder Ultrasou nd 04-02-12; [facility] Medical History 2012 Missed AB Medical History ECHOcardiogram - [facility] C trivial tricuspid and mitral regurgitation, inferior vena cava mildly dilated Medical History Post Dr Short Medical History hypertension Medical History Hypothyroidism Medical History COVID 02/2022 Surgical History Bilateral Tubes in Ears as a Ch ild Surgical History T&A as a child Surgical History laparoscopic cholecystectomy, D r. [place]affay April 2012 Surgical History childbirth 03/01/15 Hospitalization History Childbirth 2009 Hospitalization History childibirth 03/01/15 [facility] Other Evaluation noteNo [employer] Other Evaluation note* Diagnosis Onset Date Resolution Status Anemia acute Depression acute Hyperglycemia acute Hypertension acute Hypothyroidism acute Vitamin D deficiency acute Wellness examination acute [facility] Work Phone: Evaluation note* Diagnosis Acute appendicitis with localized peritonitis, without perforation, abscess, or gangrene- Primary documented in this encounter [facility] Discharge instructions Additional Instructions DISCHARGE INSTRUCTIONS FOR GENERAL SURGERY YOUR ACTIVITY MAY INCLUDE: -Going up and down stairs slowly. -Walking around the house or outside if the weather is satisfactory. -Light housework or light work permitted in 2 weeks. WOUND CARE/INCISION CARE: The sutures are underneath the skin and will dissolve by themselves. The incisions are covered with surgical glue, there is no need for additional Band-Aids It is safe to get the wounds wet with soap and water in the shower, no hot tubs or tub baths. -Is it common to feel pulling or sharp sticking sensations in the area of incision, these sensations are a part of the normal healing process. -If you develop fever, increasing pain, redness, or swelling around the incision, please notify our office MEDICATION -Resume all previous medications that you were taking for problems unrelated to your surgery, unless informed otherwise. If there are any problems with this, please call the original prescribing doctor. If you have any other questions regarding medications, please call our office. -Over the counter medications such as Acetaminophen, Ibuprofen, Naproxen, and others may be used as directed for pain unless a prescription was provided. You are off work until your follow up with Dr Padilla 09/10/24 as scheduled [facility] Work Phone: Summary Purpose Family History Relationship Condition Age at Onset Recorded Date/T nina father Malignant neoplasm Unknown Hypertension Unknown grandparent Unknown Not Specified Malignant neoplasm Unknown Unknown Relationship Condition Age at Onset Recorded Date/T nina father Malignant neoplasm Unknown Hypertension Unknown grandparent Unknown mother Malignant neoplasm Unknown Unknown Advance Directives Advance Directive Response Recorded Date/ Time Advance Directives No January 11 4 8:32am Advance Directive Response Recorded Date/ Time Advance Directives No January 11 4 7:32am Chief Complaint and Reason for Visit Chief Complaint Amb Documentation Amb Documentation review labs Reason for Visit Anemia Depression Hyperglycemia Hypertension Hypothyroidism Vitamin D deficiency Wellness examination Chief Complaint Admit Date discuss restarting medication June 122023 6:02pm Acute Appendicitis August 27, 2024 6 :52am Reason for Visit Admit Date Anxiety July 05, 2024 6:02pm Depression July 05, 2024 6:02pm Abdominal pain August 27, 2024 6 :52am Acute appendicitis August 27, 2024 6 :52am Anxiety August 27, 2024 6 :52am BMI 50.0-59.9, adult August 27, 2024 6:52am Depression August 27, 2024 6 :52am Hypertension August 27, 2024 6 :52am Hypomagnesemia August 27, 2024 6 :52am Hypothyroidism August 27, 2024 6 :52am Vitamin D deficiency August 27, 2024 6:52am Chief Complaint Admit Date Acute Appendicitis August 27, 2024 6 :52am review labs/med refill November 05, 2024 10:34am Reason for Visit Admit Date Anxiety August 27, 2024 6 :52am BMI 50.0-59.9, adult August 27, 2024 6:52am Depression August 27, 2024 6 :52am Hypertension August 27, 2024 6 :52am Hypothyroidism August 27, 2024 6 :52am Vitamin D deficiency August 27, 2024 6:52am Abdominal pain August 27, 2024 6 :52am Acute appendicitis August 27, 2024 6 :52am Hypomagnesemia August 27, 2024 6 :52am Anemia November 05, 2024 10: 34am Anxiety November 05, 2024 10: 34am Depression November 05, 2024 10: 34am Hyperglycemia November 05, 2024 10: 34am Hypertension November 05, 2024 10: 34am Hypothyroidism November 05, 2024 10: 34am Screening mammogram for breast cancer [facility] 2024 10:34am Vitamin D deficiency November 05, 2024 10 :34am Additional Source Comments INFORMATION SOURCE (unrecogn ized section and content) DATE CREATED AUTHOR 01/03/2021 [facility] DATE CREATED AUTHOR AUTHOR'S ORGANIZ ATION 02/08/2024 [facility] DATE CREATED AUTHOR AUTHOR'S ORGANIZ ATION 02/28/2024 [facility] DATE CREATED AUTHOR AUTHOR'S ORGANIZ ATION 09/12/[address] [facility] EPIC DATE CREATED AUTHOR AUTHOR'S ORGANIZ ATION 09/28/2024 [facility] REASON FOR VISIT (unrecogniz ed section and content) Reason Comments Post-op Hosp [facility]OUNTANT 1st po Lap a ppy Care Teams (unrecognized sec tion and content) Team Status: Active Member Role Status Dates Adolfo Kim LPN Care Manager Active Haley Valdivia DO Primary Care Provider Active Team Status: Active Member Role Status Dates Haley Valdivia DO Primary Care Provider Active S tart: November 03, 2023 Adolfo Kim LPN Attending Provider Active St art: November 03, 2023 Team Status: Active Member Role Status Dates Haley Valdivia DO Primary Care Provider Active S tart: January 12, 2024 Adolfo Kim LPN Attending Provider Active St art: January 12, 2024 Team Status: Inactive Member Role Status Bernardo Valdivia DO Primary Care Provide r, Attending Provider Active Start: January 28, 2024 End: January 28, 2024 Team Status: Inactive Member Role Status Bernardo Valdivia DO Primary Care Provide r, Attending Provider Active Start: July 05, 2024 End: July 05, 2024 Team Status: Active Member Role Status Bernardo Valdivia DO Primary Care Provide r, Attending Provider Active Start: August 27, 2024 Team Status: Inactive Member Role Status Bernardo Valdivia DO Primary Care Provider Active S tart: August 27, 2024 End: August 29, 2024 Justin Horton MD Admit Provider Active Start: Kana mcfarlane 2024 End: August 29, 2024 Marin Barron MD Attending Provider Active Start: August 27, 2024 End: August 29, 2024 Radha Padilla MD Other Provider Active Start: August 27, 2024 End: August 29, 2024 Founder / Ceo Relationship Specialty Start Date End Date Haley Valdivia MD [address] [place] [address] PCP - General Family Medicine 09/01/24 Founder / Ceo Relationship Specialty Start Date End Date Haley Valdivia MD [address] [place] [address] PCP - General Family Medicine 09/01/24 Team Status: Inactive Member Role Status Dates Haley Valdivia , DO Primary Care Provide r, Attending Provider Active Start: November 05, 2024 End: November 05, 2024 Goals (unrecognized section and content) Goals may be documented in a n alternate section FOR RECORDS PERTAINING TO PATIENTS WHO ARE OR HAVE BEEN ENROLLED IN A CHEMICAL DEPENDENCY/SUBSTANCEABUSE PROGRAM, SOME INFORMATION MAY BE OMITTED. This clinical summary was aggregated from multiple sources. Caution should be exercised in using it in the provision of clinical care. This summary normalizes information from multiple sources, and as a consequence, information in this document may materially change the coding, format and clinical context of patient data. In addition, data may be omitted in some cases. CLINICAL DECISIONS SHOULD BE BASED ON THE PRIMARY CLINICAL RECORDS. [facility] [employer] [facility]. provides no warranty or guarantee of the accuracy or completeness of information in this document.
[2025-04-22 18:15] VITALS: BP 138/95; PULSE 63; TEMP 37.1; O2SAT 100; BMI 52.3
--- NOTE | 2025-04-22 20:15 | ED.ABDPAIN1 ---
Documented by User: SOFÍA PRASAD 04/22/25 22:04 HPI - Abdominal Pain General Chief Complaint: Abdominal Pain Stated Complaint: PAIN IN LEFT SIDE Time Seen by Provider: 04/22/25 18:55 Source: patient Mode of arrival: walk-in Limitations: no limitations History of Present Illness HPI narrative: Female patient presents to the ED with left-sided abdominal pain for the past 3 days. She describes the pain as pressure and sharp, persistent, and non-radiating. She reports some nausea but denies vomiting, bowel or urinary changes, chest pain, shortness of breath, lightheadedness, or dizziness. She has never experienced similar symptoms in the past. Surgical history notable for appendectomy; no history of kidney stones. She does not report any factors that alleviate or worsen the pain. She is afebrile at presentation. MD elicited complaint: Reports abdominal pain Related Data Home Medications ?Medication ?Instructions ?Recorded ?Confirmed citalopram 10 mg tablet 10 mg PO DAILY 08/27/24 08/27/24 hydrochlorothiazide 12.5 mg tablet 12.5 mg PO Q12H 08/27/24 08/27/24 labetalol 300 mg tablet 150 mg PO Q12H 08/27/24 08/27/24 levothyroxine 50 mcg tablet 50 mcg PO DAILY 08/27/24 08/27/24 (Synthroid) losartan 50 mg tablet 50 mg PO BID 08/27/24 08/27/24 Allergies Allergy/AdvReac Type Severity Reaction Status Date / Time No Known Drug Allergies Allergy Verified 04/22/25 18:14 [facility] Medical History (Updated 04/22/25 @ 22:55 by Joseph Multani MD) Thyroid disease ?E07.9 - Disorder of thyroid, unspecified (ICD-10) Hypertension ?I10 - Essential (primary) hypertension (ICD-10) Social History Little interest or pleasure in doing things: not at all Feeling down, depressed, or hopeless: not at all Exam Narrative Exam Narrative: General: Alert, in no acute distress. Abdomen: Soft, nondistended. Tender to palpation in the left mid-lateral abdomen. Mild guarding present, no rebound. Bowel sounds present. Cardiac: Regular rate and rhythm, no murmurs. Lungs: Clear to auscultation bilaterally. HEENT: Normal. Extremities: No edema or deformities. Skin: Warm, dry, intact. Neuro: Alert and oriented, no focal deficits. Constitutional Vital Signs, click to edit/add: Last Vital Signs Temp 98.8 F 04/22/25 18:15 Pulse 50 L 04/22/25 22:10 Resp 20 04/22/25 22:10 BP 171/76 H 04/22/25 22:10 Pulse Ox 100 04/22/25 22:10 O2 Del Method Room Air 04/22/25 22:10 Course Vital Signs Vital signs: Vital Signs Temperature 98.8 F 04/22/25 18:15 Pulse Rate 63 04/22/25 18:15 Respiratory Rate 18 04/22/25 18:15 Blood Pressure 138/95 H 04/22/25 18:15 Pulse Oximetry 100 04/22/25 18:15 Oxygen Delivery Method Room Air 04/22/25 18:15 Temperature 98.8 F 04/22/25 18:15 Pulse Rate 50 L 04/22/25 22:10 Respiratory Rate 20 04/22/25 22:10 Blood Pressure 171/76 H 04/22/25 22:10 Pulse Oximetry 100 04/22/25 22:10 Oxygen Delivery Method Room Air 04/22/25 22:10 MDM - Abdominal Pain MDM Narrative Medical decision making narrative: 49-year-old female presents with acute left-sided abdominal pain for the past 3 days, described as pressure and sharp, persistent, and non-radiating, associated with mild nausea. She has no vomiting, bowel or urinary changes, or systemic symptoms. Surgical history notable for appendectomy; no history of kidney stones. Labs and urinalysis are unremarkable, making urinary tract infection or metabolic causes less likely. Differential includes musculoskeletal pain, early diverticulitis, gastrointestinal etiologies, or gynecologic pathology. Patient is hemodynamically stable and does not currently require pain medication. CT abdomen/pelvis with contrast is pending for further evaluation. Patient will be monitored for changes in symptoms or vital signs, and management will be updated based on imaging findings and clinical course. CT pending at this time. Patient signed out to Dr. multani at [address] and arrange disposition. Differential Diagnosis Differential diagnosis: Likely abdominal pain, calculus of kidney, constipation, diverticulitis, pancreatitis and small bowel obstruction Medical Records Attestation: I reviewed the patient's medical records. Lab Data Attestation: I reviewed the patient's lab results. Labs: Lab Results 04/22/25 04/22/25 Range/Units 19:04 19:05 WBC 7.3 (4.0-11.0) 10^3/uL RBC 4.10 L (4.20-5.40) 10^6/uL Hgb 12.4 (12.0-16.0) g/dL Hct 37.3 (36.0-48.0) % MCV 91.0 (81.0-99.0) fL MCH 30.2 (26.7-34.0) pg MCHC 33.2 (29.9-35.2) g/dL RDW 14.2 (11.0-15.0) % Plt Count 215 (150-450) 10^3/uL MPV 9.4 L (9.5-13.5) fL Neut % (Auto) 59.5 (43.0-75.0) % Lymph % (Auto) 31.4 (20.5-60.0) % [place] % (Auto) 7.1 (1.7-12.0) % Eos % (Auto) 1.1 (0.9-7.0) % Baso % (Auto) 0.5 (0.2-2.0) % Neut # (Auto) 4.4 (1.4-6.5) 10^3/uL Lymph # (Auto) 2.3 (1.2-3.8) 10^3/uL [place] # (Auto) 0.5 (0.3-0.8) 10^3/uL Eos # (Auto) 0.1 (0.0-0.7) 10^3/uL Baso # (Auto) 0.0 (0.0-0.1) 10^3/uL Abs Immat Gran (auto) 0.03 (0.00-0.03) 10^3/uL Imm/Tot Granulo (auto) 0.4 (0.0-0.5) % Sodium 139 (136-145) mmol/L Potassium 3.6 (3.5-5.1) mmol/L Chloride 102 (98-107) mmol/L Carbon Dioxide 29.1 (21.0-32.0) mmol/L Anion Gap 11.5 BUN 11.0 (7.0-18.0) mg/dL Creatinine 0.71 (0.55-1.02) mg/dL Est GFR ( Amer) >60 (>=60 mL/min/1.73m^2) Est GFR (Non-Af Amer) >60 (>=60 mL/min/1.73m^2) BUN/Creatinine Ratio 15.5 Glucose 93 (74-106) mg/dL Calcium 8.5 (8.5-10.1) mg/dL Total Bilirubin 1.0 (0.2-1.0) mg/dL AST 16 (15-37) U/L ALT 30 (14-59) U/L Alkaline Phosphatase 88 (46-116) U/L Total Protein 7.5 (6.4-8.2) g/dL Albumin 3.5 (3.4-5.0) g/dL Globulin 4.0 g/dL Albumin/Globulin Ratio 0.9 Lipase 37.0 (16.0-77.0) U/L Urine Color Lt. yellow (YELLOW) Urine Clarity Clear (CLEAR) Urine pH 6.5 (5.0-9.0) Ur Specific Williamson <=1.005 A (1.005-1.025) Urine Protein Negative (NEG/TRACE) mg/dL Urine Glucose (UA) Negative (NEGATIVE) mg/dL Urine Ketones Negative (NEGATIVE) mg/dL Urine Occult Blood Negative (NEGATIVE) Urine Nitrite Negative (NEGATIVE) Urine Bilirubin Negative (NEGATIVE) Urine Urobilinogen 0.2 (0.2-1.0) EU/dL Ur Leukocyte Esterase Negative (NEGATIVE) Urine RBC None seen (0-2) #/HPF Urine WBC None seen (NONE SEEN) #/HPF Ur Squamous Epith Cells Rare (NONE/RARE) #/LPF Urine Crystals None seen (None Seen) #/HPF Urine Bacteria None seen (NONE SEEN) #/HPF Urine Casts None seen (NONE SEEN) #/LPF Urine Mucus None seen (NONE SEEN) Ur Culture Indicated? No Discharge Plan Discharge Chief Complaint: Abdominal Pain Clinical Impression: Diverticulitis Patient Disposition: Home, Self-Care Prescriptions / Home Meds: No Action citalopram 10 mg tablet 10 mg PO DAILY hydrochlorothiazide 12.5 mg tablet 12.5 mg PO Q12H labetalol 300 mg tablet 150 mg PO Q12H levothyroxine [Synthroid] 50 mcg tablet 50 mcg PO DAILY losartan 50 mg tablet 50 mg PO BID Print Language: Danish Instructions: Diverticulitis (ED) Additional Instructions: follow up with family doctor early next week for recheck Referrals: HALEY VALDIVIA [Primary Care Provider, Family Practice] - 1 week Discharge Date/Time: 04/22/25 23:13 Documented by User: Joseph Multani MD 04/24/25 23:17 HPI - Abdominal Pain General Chief Complaint: Abdominal Pain Stated Complaint: PAIN IN LEFT SIDE Time Seen by Provider: 04/22/25 18:55 Related Data Home Medications ?Medication ?Instructions ?Recorded ?Confirmed citalopram 10 mg tablet 10 mg PO DAILY 08/27/24 08/27/24 hydrochlorothiazide 12.5 mg tablet 12.5 mg PO Q12H 08/27/24 08/27/24 labetalol 300 mg tablet 150 mg PO Q12H 08/27/24 08/27/24 levothyroxine 50 mcg tablet 50 mcg PO DAILY 08/27/24 08/27/24 (Synthroid) losartan 50 mg tablet 50 mg PO BID 08/27/24 08/27/24 Allergies Allergy/AdvReac Type Severity Reaction Status Date / Time No Known Drug Allergies Allergy Verified 04/22/25 18:14 PFSH PFS Medical History (Updated 04/22/25 @ 22:55 by Joseph Multani MD) Thyroid disease ?E07.9 - Disorder of thyroid, unspecified (ICD-10) Hypertension ?I10 - Essential (primary) hypertension (ICD-10) Social History Little interest or pleasure in doing things: not at all Feeling down, depressed, or hopeless: not at all Exam Constitutional Vital Signs, click to edit/add: Last Vital Signs Temp 98.8 F 04/22/25 18:15 Pulse 50 L 04/22/25 22:10 Resp 20 04/22/25 22:10 BP 171/76 H 04/22/25 22:10 Pulse Ox 100 04/22/25 22:10 O2 Del Method Room Air 04/22/25 22:10 Course Vital Signs Vital signs: Vital Signs Temperature 98.8 F 04/22/25 18:15 Pulse Rate 63 04/22/25 18:15 Respiratory Rate 18 04/22/25 18:15 Blood Pressure 138/95 H 04/22/25 18:15 Pulse Oximetry 100 04/22/25 18:15 Oxygen Delivery Method Room Air 04/22/25 18:15 Temperature 98.8 F 04/22/25 18:15 Pulse Rate 50 L 04/22/25 22:10 Respiratory Rate 20 04/22/25 22:10 Blood Pressure 171/76 H 04/22/25 22:10 Pulse Oximetry 100 04/22/25 22:10 Oxygen Delivery Method Room Air 04/22/25 22:10 MDM - Abdominal Pain MDM Narrative Medical decision making narrative: 49-year-old female presents with acute left-sided abdominal pain for the past 3 days, described as pressure and sharp, persistent, and non-radiating, associated with mild nausea. She has no vomiting, bowel or urinary changes, or systemic symptoms. Surgical history notable for appendectomy; no history of kidney stones. Labs and urinalysis are unremarkable, making urinary tract infection or metabolic causes less likely. Differential includes musculoskeletal pain, early diverticulitis, gastrointestinal etiologies, or gynecologic pathology. Patient is hemodynamically stable and does not currently require pain medication. CT abdomen/pelvis with contrast is pending for further evaluation. Patient will be monitored for changes in symptoms or vital signs, and management will be updated based on imaging findings and clinical course. CT pending at this time. Patient signed out to Dr. multani at [address] and arrange disposition. care transferred at change of shift. CT with findings of uncomplicated diverticulitis. Patient informed of the above. Given dose of Augmentin and discharged home with plan of close follow up Lab Data Labs: Lab Results 04/22/25 04/22/25 Range/Units 19:04 19:05 WBC 7.3 (4.0-11.0) 10^3/uL RBC 4.10 L (4.20-5.40) 10^6/uL Hgb 12.4 (12.0-16.0) g/dL Hct 37.3 (36.0-48.0) % MCV 91.0 (81.0-99.0) fL MCH 30.2 (26.7-34.0) pg MCHC 33.2 (29.9-35.2) g/dL RDW 14.2 (11.0-15.0) % Plt Count 215 (150-450) 10^3/uL MPV 9.4 L (9.5-13.5) fL Neut % (Auto) 59.5 (43.0-75.0) % Lymph % (Auto) 31.4 (20.5-60.0) % [place] % (Auto) 7.1 (1.7-12.0) % Eos % (Auto) 1.1 (0.9-7.0) % Baso % (Auto) 0.5 (0.2-2.0) % Neut # (Auto) 4.4 (1.4-6.5) 10^3/uL Lymph # (Auto) 2.3 (1.2-3.8) 10^3/uL [place] # (Auto) 0.5 (0.3-0.8) 10^3/uL Eos # (Auto) 0.1 (0.0-0.7) 10^3/uL Baso # (Auto) 0.0 (0.0-0.1) 10^3/uL Abs Immat Gran (auto) 0.03 (0.00-0.03) 10^3/uL Imm/Tot Granulo (auto) 0.4 (0.0-0.5) % Sodium 139 (136-145) mmol/L Potassium 3.6 (3.5-5.1) mmol/L Chloride 102 (98-107) mmol/L Carbon Dioxide 29.1 (21.0-32.0) mmol/L Anion Gap 11.5 BUN 11.0 (7.0-18.0) mg/dL Creatinine 0.71 (0.55-1.02) mg/dL Est GFR ( Amer) >60 (>=60 mL/min/1.73m^2) Est GFR (Non-Af Amer) >60 (>=60 mL/min/1.73m^2) BUN/Creatinine Ratio 15.5 Glucose 93 (74-106) mg/dL Calcium 8.5 (8.5-10.1) mg/dL Total Bilirubin 1.0 (0.2-1.0) mg/dL AST 16 (15-37) U/L ALT 30 (14-59) U/L Alkaline Phosphatase 88 (46-116) U/L Total Protein 7.5 (6.4-8.2) g/dL Albumin 3.5 (3.4-5.0) g/dL Globulin 4.0 g/dL Albumin/Globulin Ratio 0.9 Lipase 37.0 (16.0-77.0) U/L Urine Color Lt. yellow (YELLOW) Urine Clarity Clear (CLEAR) Urine pH 6.5 (5.0-9.0) Ur Specific Williamson <=1.005 A (1.005-1.025) Urine Protein Negative (NEG/TRACE) mg/dL Urine Glucose (UA) Negative (NEGATIVE) mg/dL Urine Ketones Negative (NEGATIVE) mg/dL Urine Occult Blood Negative (NEGATIVE) Urine Nitrite Negative (NEGATIVE) Urine Bilirubin Negative (NEGATIVE) Urine Urobilinogen 0.2 (0.2-1.0) EU/dL Ur Leukocyte Esterase Negative (NEGATIVE) Urine RBC None seen (0-2) #/HPF Urine WBC None seen (NONE SEEN) #/HPF Ur Squamous Epith Cells Rare (NONE/RARE) #/LPF Urine Crystals None seen (None Seen) #/HPF Urine Bacteria None seen (NONE SEEN) #/HPF Urine Casts None seen (NONE SEEN) #/LPF Urine Mucus None seen (NONE SEEN) Ur Culture Indicated? No Discharge Plan Discharge Chief Complaint: Abdominal Pain Clinical Impression: Diverticulitis Patient Disposition: Home, Self-Care Prescriptions / Home Meds: No Action citalopram 10 mg tablet 10 mg PO DAILY hydrochlorothiazide 12.5 mg tablet 12.5 mg PO Q12H labetalol 300 mg tablet 150 mg PO Q12H levothyroxine [Synthroid] 50 mcg tablet 50 mcg PO DAILY losartan 50 mg tablet 50 mg PO BID Print Language: Danish Instructions: Diverticulitis (ED) Additional Instructions: follow up with family doctor early next week for recheck Referrals: HALEY VALDIVIA [Primary Care Provider, Family Practice] - 1 week Discharge Date/Time: 04/22/25 23:13
[2025-04-22 20:49] LABS: Hematocrit 37.3 % (36.0-48.0); Hemoglobin 12.4 g/dL (12.0-16.0); Immature Granulocytes Abs Auto 0.03 10^3/uL (0.00-0.03); Immature Granulocytes Pct Auto 0.4 % (0.0-0.5); Lymphocytes Absolute Auto 2.3 10^3/uL (1.2-3.8); Mean Corpuscular HGB Conc 33.2 g/dL (29.9-35.2); Mean Corpuscular Hemoglobin 30.2 pg (26.7-34.0); Mean Corpuscular Volume 91.0 fL (81.0-99.0); Platelet Count 215 10^3/uL (150-450); Red Blood Count 4.10 10^6/uL (4.20-5.40); White Blood Count 7.3 10^3/uL (4.0-11.0)
[2025-04-22 20:54] LABS: Glucose Urine UA NEGATIVE (NEGATIVE)
[2025-04-22 21:00] LABS: Cast Seen? NONE SEEN #/LPF (NONE SEEN); Crystals Seen? None Seen #/HPF (None Seen); Urine Culture Indicated NO
[2025-04-22 21:01] LABS: Alanine Aminotransferase 30 U/L (14-59); Albumin Globulin Ratio 0.9; Albumin Level 3.5 g/dL (3.4-5.0); Alkaline Phosphatase 88 U/L (46-116); Anion Gap 11.5; Aspartate Amino Transferase 16 U/L (15-37); Blood Urea Nitrogen 11.0 mg/dL (7.0-18.0); Calcium 8.5 mg/dL (8.5-10.1); Carbon Dioxide 29.1 mmol/L (21.0-32.0); Chloride 102 mmol/L (98-107); Estimated GFR (African America >60 (>=60 mL/min/1.73m^2); Estimated GFR (Non-African Ame >60 (>=60 mL/min/1.73m^2); Globulin 4.0 g/dL; Glucose 93 mg/dL (74-106); Lipase 37.0 U/L (16.0-77.0); Potassium 3.6 mmol/L (3.5-5.1); Sodium 139 mmol/L (136-145); Total Protein 7.5 g/dL (6.4-8.2)
[2025-04-22] MEDS: 0.9 % SODIUM CHLORIDE 1,000 ML 999 ML IV (21:02)
[2025-04-22 21:06] VITALS: BP 162/76; PULSE 60; O2SAT 99
--- NOTE | 2025-04-22 21:08 | CT_ITS ---
The [address] [address] Patient Name: KRISTINA HENNESSY MRN: [id number] date: 1975 Sex: F Assigned Patient Location: ER Current Patient Location: ED.MAIN Accession/Order Number: [id number] Exam Date: 04/22/2025 21:15 Report Date: 04/22/2025 22:26 At the request of: LINETTE GORE Procedure: CT abdomen pelvis w con CT ABDOMEN AND PELVIS WITH INTRAVENOUS CONTRAST: CLINICAL HISTORY: left ab pain COMPARISON: 08/27/2024 TECHNIQUE: Spiral images were obtained through the abdomen and pelvis following the administration of intravenous contrast. This CT exam was performed using one or more following dose reduction techniques: Automated exposure control, adjustment of the mA and/or kV according to patient size, or use of iterative reconstruction technique. FINDINGS: Lung Bases: [Lung bases are clear] Organs:Liver, spleen, left adrenal pancreas unremarkable. Right adrenal nodule likely adenoma measuring 1.7 cm in size. Cholecystectomy. GI: Retained stool. Colonic diverticulosis. Fat stranding anterior to the descending colon suspicious for acute uncomplicated diverticulitis. Appendectomy.[ Pelvis:[Uterus and adnexal regions unremarkable. Bladder unremarkable.] Peritoneum/Retroperitoneum:No free air or free fluid.[Unremarkable aorta. Abd wall/Bones:Degenerative changes.[ CT/CT abdomen pelvis w con IMPRESSION: Acute uncomplicated descending colonic diverticulitis Impression dictated by: Oliver Mayers M.D. 04/22/2025 10:26 PM Dictation Location[facility] Electronically authenticated by: [id number] Y Date: 04/22/2025 22:26
[2025-04-22 22:10] VITALS: BP 171/76; PULSE 50; O2SAT 100
[2025-04-22] MEDS: AMOXICILLIN/POT CLAV 875-125 MG TABLET 1 TAB PO (23:11)
== END 2025-04-22 23:13 | disposition home or self-care (01) ==
PROVIDERS: Physician Assistant; Emergency Provider Internal Medicine; PCP Family Medicine
DX: K57.32 Diverticulitis of large intestine without perforation or abscess without bleeding (principal); Z90.49 Acquired absence of other specified parts of digestive tract
CPT/HCPCS: 36415; 74177; 80053; 81001; 83690; 85025; 99284; Q9967